=== PATIENT | female | born 1945 | race Caucasian/White ===

== ENCOUNTER 2017-04-11 15:58 | Inpatient (IN) | payer OTHER ==
--- NOTE | 2017-04-11 17:29 | PDOC ---
History of Present Illness - General Chief Complaint: Wound Stated Complaint: CYST (PCP SENT) Time Seen by Provider: 04/11/17 17:28 History Source: Patient Exam Limitations: No Limitations - History of Present Illness Initial Comments: 04/11/17 17:53 Patient is a 72-year-old female with past medical history of insulin-dependent diabetes, HTN, HLD who presents to the emergency department today complaining of pain in her genital region. Patient states she was seen by Dr. Sy today in the clinic and was diagnosed with an abscess to her labia. She was sent over to the emergency department for further evaluation and workup of her abscess. She states her symptoms started yesterday. She initially noticed a small lump and that it hurt to sit. She states that the abscess grew overnight and became much larger. She states that the pain is in an 8 out of 10. Denies fevers, chills, weakness, lethargy, chest pain, shortness of breath, cough, edema, palpitations, nausea, vomiting and diarrhea. Patient states that she hasn't urinated since she noticed the abscess because she was afraid it was going to hurt. Past History - Travel Traveled outside of the country in the last 30 days: No Close contact w/someone who was outside of country & ill: No - Past Medical History Allergies/Adverse Reactions: Allergies Allergy/AdvReac Type Severity Reaction Status Date / Time No Known Allergies Allergy Verified 04/11/17 16:05 Home Medications: Ambulatory Orders Atorvastatin Ca [Lipitor] 40 mg PO HS 03/17/16 Carvedilol 12.5 mg PO BID 03/17/16 Insulin Aspart [Novolog] 20 unit SQ TID 03/17/16 Insulin Glargine,Hum.rec.anlog [Lantus Solostar PEN (NF)] 32 units SQ HS Ramipril 5 mg PO DAILY 03/17/16 Spironolactone 25 mg PO DAILY 03/17/16 Anemia: No Asthma: No Cancer: No Cardiac Disorders: Yes CVA: No COPD: No CHF: No Dementia: No Diabetes: Yes (IDDM) GI Disorders: No Disorders: No HTN: Yes Hypercholesterolemia: Yes Liver Disease: No Seizures: Yes (possible with brain aneurysm (1991)) Thyroid Disease: No - Surgical History Cardiac Surgery: Yes (triple bypass 2015) Neurologic Surgery: Yes (CLIPPING OF ANEURYSM 1991) - Psycho/Social/Smoking Cessation Hx Suicidal Ideation: No Smoking Status: No Smoking History: Former smoker Have you smoked in the past 12 months: No Number of Cigarettes Smoked Daily: 60 If you are a former smoker, when did you quit?: 1971 Information on smoking cessation initiated: No Hx Alcohol Use: No Drug/Substance Use Hx: No Review of Systems - Review of Systems Constitutional: No: Chills, Fever, Malaise, Weakness Respiratory: No: Cough, Shortness of Breath, Wheezing Cardiac (ROS): No: Chest Pain, Edema, Lightheadedness, Palpitations, Chest Tightness ABD/GI: No: Diarrhea, Nausea, Vomiting : Yes: Pain (L labia majora) Integumentary: Yes: Erythema (L labia), Other (abscess to the L labia measuring 2cm wide x 4cm long) Neurological: No: Numbness, Tingling, Weakness All Other Systems: Reviewed and Negative *Physical Exam - Vital Signs Last Vital Signs Temp Pulse Resp BP Pulse Ox 98.0 F 91 H 16 95/41 98 04/11/17 16:01 04/11/17 16:01 04/11/17 16:01 04/11/17 16:01 04/11/17 16:01 - Physical Exam Comments: 04/11/17 17:54 GENERAL: Well developed, well nourished. AAOx3. No acute distress, laying on hospital bed , breathing easily. HEENT: Normocephalic, atraumatic. PERRLA, EOMI. No conjunctival pallor. Sclera are non- icteric. Moist mucous membranes. Oropharynx is clear. NECK: Supple. Full ROM. No JVD. Carotid pulses 2+ and symmetric, without bruits. No thyromegaly. No lymphadenopathy. CARDIOVASCULAR: Regular rate and rhythm. No murmurs, rubs, or gallops. Distal pulses are 2+ and symmetric. PULMONARY: No evidence of respiratory distress. Lungs clear to auscultation bilaterally. No wheezing, rales or rhonchi. ABDOMINAL: Soft. Non-tender. Non-distended. No rebound or guarding. No organomegaly. Normoactive bowel sounds. MUSCULOSKELETAL Normal range of motion at all joints. No bony deformities or tenderness. No CVA tenderness. EXTREMITIES: No cyanosis. No clubbing. No edema. No calf tenderness. SKIN: Warm and dry. Normal capillary refill. No rashes. No jaundice. NEUROLOGICAL: Alert, awake, appropriate. Cranial nerves 2-12 intact. No deficits to light touch and temperature in face, upper extremities and lower extremities. No motor deficits in the in face, upper extremities and lower extremities. Normoreflexic in the upper and lower extremities. Normal speech. Toes are down- going bilaterally. Gait is normal without ataxia. PSYCHIATRIC: Cooperative. Good eye contact. Appropriate mood and affect. : L Labia with indurated abscess and surrounding erythema measuring 2cm [id number] long. TTP, no obvious fluctuant mass. R labia is normal appearing, no other rashes or lesions noted on the external genitalia Medical Decision Making - Medical Decision Making 04/11/17 16:56 Patient is a 72-year-old female with past medical history of insulin-dependent diabetes, HTN, HLD who presents to the emergency department today complaining of pain in her genital region. On exam there is a cellulitic/abscess region on her left labia measuring approximately 2 cm x [address] Sy today in the office. Spoke with Dr. Samuels who is covering for Dr. Garcia. She states that he is requesting that she be admitted for IV antibiotics and OR incision and drainage of the abscess given her comorbidities and location of abscess. Requesting that she be admitted to Dr. Hassan her primary care doctor. Will page at this time. We will also order basic labs that are needed for the OR and IV antibiotics. 1. CBC, CMP, PT/INR, Type and screen, blood cultures x2, UA, UC 2. IV Vancomycin, IV zosyn 3. Admit to Med/Surg 04/11/17 17:[address] Hassan. He accepts the patient. *DC/Admit/Observation/Transfer Diagnosis at time of Disposition: Abscess of labia majora Diabetes Qualifiers: Diabetes mellitus type: other specified (including BERONICA) Diabetes mellitus complication status: with skin complications Diabetes mellitus complication detail: with other skin complication Diabetes mellitus termite technician insulin use: with termite technician use Qualified Code(s): E13.628 - Other specified diabetes mellitus with other skin complications Coronary artery disease Qualifiers: Coronary Disease-Associated Artery/Lesion type: unspecified vessel or lesion type [place] vs. transplanted heart: [place] heart Associated angina: without angina Qualified Code(s): I25.10 - Atherosclerotic heart disease of [place] coronary artery without angina pectoris - Discharge Dispostion Condition at time of disposition: Stable Admit: Yes - Referrals Referrals: Ryan Hassan MD [Primary Care Provider] -
[2017-04-11] MEDS ORDERED: VANCOMYCIN 1,000 MG in DEXTROSE 5%-WATER - 250 ML IVPB ONE (18:26)
[2017-04-11] MEDS ORDERED: PIPERACILLIN/TAZOB 3.375 GM 3.375 GM in DEXTROSE 5%-WATER - 50 ML IVPB ONE (18:27)
--- NOTE | 2017-04-11 18:39 | PDOC ---
*Physical Exam - Vital Signs Last Vital Signs Temp Pulse Resp BP Pulse Ox 98.0 F 86 18 111/59 97 04/11/17 16:01 04/11/17 17:43 04/11/17 17:43 04/11/17 17:43 04/11/17 17:43 Heart Score/ECG Review #1 ECG reviewed & interpreted by me at: 18:52 General ECG Interpretation: Sinus Rhythm, Normal Rate, Normal Intervals 04/11/17 18:52 non specific t wave abnormalities ED Treatment Course - LABORATORY CBC & Chemistry Diagram: 04/11/17 18:35 04/11/17 18:35 Medical Decision Making - Medical Decision Making 04/11/17 18:39 This is a 72-year-old female with a history of diabetes who presents emergency department from her GYNs office due to labial abscess. No fevers, no chills. Area is very tender. Plan is for admission for operative drainage tomorrow. Pt seen by Midlevel Provider under my direct supervision Ancillary studies reviewed I agree with plan as outlined by Midlevel Provider *DC/Admit/Observation/Transfer Diagnosis at time of Disposition: Abscess of labia majora Diabetes Qualifiers: Diabetes mellitus type: other specified (including [place]) Diabetes mellitus complication status: with skin complications Diabetes mellitus complication detail: with other skin complication Diabetes mellitus intermediate project manager insulin use: with detention use Qualified Code(s): E13.628 - Other specified diabetes mellitus with other skin complications Coronary artery disease Qualifiers: Coronary Disease-Associated Artery/Lesion type: unspecified vessel or lesion type [place] vs. transplanted heart: [place] heart Associated angina: without angina Qualified Code(s): I25.10 - Atherosclerotic heart disease of [place] coronary artery without angina pectoris - Discharge Dispostion Condition at time of disposition: Stable - Referrals Referrals: Ryan Hassan MD [Primary Care Provider] - - Patient Instructions - Post Discharge Activity
[2017-04-11] MEDS ORDERED: VANCOMYCIN 1 GRAM (PRE-DOCKED) 250 ML IVPB ONE (18:44)
[2017-04-11] MEDS ORDERED: PIPERACILLIN/TAZOB 3.375 GM 50 ML IVPB ONE (18:45)
[2017-04-11 18:54] LABS: BASOPHIL 0.2 % (0-2.0); EOSINOPHIL 0.4 % (0-4.5); MCH 30.4 pg (25.7-33.7); MCHC 33.5 g/dl (32.0-36.0); MEAN CELL VOLUME 90.6 fl (80-96); MEAN PLT VOLUME 8.4 fl (7.5-11.1); NEUTROPHILS 80.6 % (42.8-82.8); PLATELET COUNT 161 K/MM3 (134-434); RDW 13.4 % (11.6-15.6); WHITE BLOOD COUNT 12.1 K/mm3 (4.0-10.0)
[2017-04-11 19:13] LABS: INR 1.27 (0.82-1.09)
[2017-04-11 19:19] LABS: ALBUMIN 3.5 g/dl (3.4-5.0); ANION GAP 8 (8-16); CO2 25 mmol/L (21-32); CREATININE 1.4 mg/dL (0.55-1.02); SGOT/AST 5 U/L (15-37); SGPT/ALT 16 U/L (12-78)
[2017-04-11 19:21] LABS: ALK PHOS 66 U/L (45-117); TOT PROT 7.3 g/dl (6.4-8.2)
[2017-04-11 20:13] LABS: GLUCOSE,RANDOM 312 mg/dL (74-106)
[2017-04-11] MEDS ORDERED: INSULIN DETEMIR 100 UNITS/ML MDV SQ SCH (23:15)
[2017-04-11] MEDS: CARVEDILOL 12.5 MG TABLET (FP) PO SCH (23:49)
[2017-04-12 00:13] VITALS: BMI 28.8
[2017-04-12] MEDS: INSULIN SLIDING SCALE (NOVOLOG) 1 VIAL SQ SCH ×4 (01:02→21:41)
[2017-04-12 01:13] LABS: URINE APPEARANCE CLEAR; URINE BILIRUBIN NEGATIVE (NEGATIVE); URINE BLOOD NEGATIVE (NEGATIVE); URINE COLOR LT. YELLOW; URINE GLUCOSE (UA) 3+ (NEGATIVE); URINE KETONE NEGATIVE (NEGATIVE); URINE LEUK ESTERASE NEGATIVE (NEGATIVE); URINE NITRITE NEGATIVE (NEGATIVE); URINE PROTEIN NEGATIVE (NEGATIVE); URINE UROBILINOGEN 0.2 mg/dL (0.2-1.0)
[2017-04-12] MEDS: CARVEDILOL 12.5 MG TABLET (FP) PO SCH ×2 (09:46→21:42)
[2017-04-12] MEDS ORDERED: RAMIPRIL 5 MG CAPSULE (FP) PO SCH (10:00)
[2017-04-12] MEDS ORDERED: SPIRONOLACTONE 25 MG TABLET (FP) PO SCH (10:00)
--- NOTE | 2017-04-12 11:07 | HP ---
DATE OF ADMISSION: 04/11/2017 DATE OF DICTATION: 04/12/2017 HISTORY OF PRESENT ILLNESS: This is a 72-year-old female known to have hypertension and diabetes not under good control all the time, now presenting to the emergency room with complaints of pain in the vulvar area. It was diagnosed that patient had labial abscess on the left side evaluated by her reinsurance claims analyst, Dr. Jones, advised incision and drainage in the operating room. So, she got admitted with a diagnosis of uncontrolled diabetes and abscess in the vulvar area of the vagina. MEDICATIONS: She is on insulin Lantus 32 units a day and also on regular insulin 3 times a day depending upon the blood sugar. SOCIAL HISTORY: She is not a smoker. No alcohol abuse. 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 ALLERGIES: No known allergies. PHYSICAL EXAMINATION: Vital signs: Today, her blood pressure is 110/70, pulse 72, respirations 20, temperature 100.2. HEENT: Unremarkable. Neck: supple. Lungs: Clear. Breasts: No masses. Heart: S1, S2 normal. No S3, S4. Abdomen: Soft, nontender. On the vaginal area, there is an abscess with induration on the left labia. Extremities: Legs no edema. Neurologic: Grossly normal. LABORATORIES: WBC 12, hemoglobin 11, hematocrit 34, platelets 161. Chemistry: Sodium 133, potassium 4.7, BUN 43, creatinine 1.4, blood sugar 312 at the time of admission and this morning is 191. Chest x-ray showed no acute changes, prominent mediastinum. EKG to be evaluated. IMPRESSION: Labial abscess, uncontrolled diabetes. PLAN: RAILROAD COMMISSIONER consult with Dr. Jones to do incision and drainage, and ID consult , Dr. Garibay, for antibiotics. Sandra [id number]
--- NOTE | 2017-04-12 14:56 | EKG ---
Test Reason : Blood Pressure : / mmHG Vent. Rate : 082 BPM Atrial Rate : 082 BPM P-R Int : 162 ms QRS Dur : 086 ms QT Int : 346 ms P-R-T Axes : -08 -17 069 degrees QTc Int : 404 ms NORMAL SINUS RHYTHM NONSPECIFIC T WAVE ABNORMALITY ABNORMAL ECG WHEN COMPARED WITH ECG OF 18-MAR-2016 22:13, QT HAS SHORTENED Confirmed by ERICK PEÑA MD ([id number]) on 04/12/2017 2:55:38 PM Referred By: Confirmed By:ERICK PEÑA MD
[2017-04-12] MEDS ORDERED: morphine CARPU-JECT 2 MG/1 ML DISP.SYRIN IVPUSH PRN ×2 (15:03→17:22)
[2017-04-12] MEDS ORDERED: ONDANSETRON 4 MG/2 ML VIAL IVPB PRN ×2 (15:04→16:54)
--- NOTE | 2017-04-12 15:42 | CONSULT ---
Consult Consult Specialty:: infectious diseases Referred by:: Reason for Consultation:: labial abscess - History of Present Illness Chief Complaint: pain and swelling of the left labia History of Present Illness: This is a 72-year-old female with a history of diabetes who is admitted for labial abscess. patient had the abscess before patient was evalauted by fleet administrative assistant and the plan is to do surgery today patient c/o sever pain at the site spoke with the family and her sugars are not in control - History Source History Provided By: Patient, Family Member - Past Medical History Cardio/Vascular: Yes: CAD, CHF, HTN ...: No - Alcohol/Substance Use Hx Alcohol Use: No - Smoking History Smoking history: Former smoker Have you smoked in the past 12 months: No Aproximately how many cigarettes per day: 60 If you are a former smoker, when did you quit?: 1972 Home Medications - Allergies Allergies/Adverse Reactions: Allergies Allergy/AdvReac Type Severity Reaction Status Date / Time No Known Allergies Allergy Verified 04/11/17 16:05 - Home Medications Home Medications: Ambulatory Orders Atorvastatin Ca [Lipitor] 40 mg PO HS 03/17/16 Carvedilol 12.5 mg PO BID 03/17/16 Insulin Aspart [Novolog] 14 unit SQ TID 03/17/16 Insulin Glargine,Hum.rec.anlog [Lantus Solostar PEN (NF)] 32 units SQ HS Ramipril 5 mg PO DAILY 03/17/16 Spironolactone 25 mg PO DAILY 03/17/16 Review of Systems - Review of Systems Constitutional: reports: No Symptoms Eyes: reports: No Symptoms HENT: reports: No Symptoms Neck: reports: No Symptoms Cardiovascular: reports: No Symptoms Respiratory: reports: No Symptoms Gastrointestinal: reports: No Symptoms Genitourinary: reports: No Symptoms Musculoskeletal: reports: No Symptoms Integumentary: reports: Erythema, Wound Neurological: reports: No Symptoms Endocrine: reports: No Symptoms Hematology/Lymphatic: reports: No Symptoms Psychiatric: reports: No Symptoms Physical Exam Vital Signs: Vital Signs Temperature 97.8 F 04/12/17 10:00 Pulse Rate 74 04/12/17 10:00 Respiratory Rate 18 04/12/17 10:00 Blood Pressure 100/40 04/12/17 10:00 O2 Sat by Pulse Oximetry (%) 99 04/11/17 21:00 Constitutional: Yes: Calm, Mild Distress Eyes: Yes: Conjunctiva Clear HENT: Yes: Atraumatic Neck: Yes: Supple Cardiovascular: Yes: Regular Rate and Rhythm Respiratory: Yes: Regular, CTA Bilaterally Gastrointestinal: Yes: Normal Bowel Sounds, Soft Renal/: Yes: Other (left labia tenderness swelling) Musculoskeletal: Yes: WNL Extremities: Yes: WNL Neurological: Yes: Alert, Oriented Psychiatric: Yes: Alert, Oriented Labs: CBC, BMP 04/11/17 18:35 04/11/17 23:38 Imaging - Results Chest X-ray: Report Reviewed, Image Reviewed Assessment/Plan patient evaluated patient has labial abscess left labial abscess dm plan surgery will continue zosyn once surgery is done will see what cx show diabetes management
[2017-04-12] MEDS ORDERED: PIPERACILLIN/TAZOBACTAM 3.375 GM VIAL IVPB ONE ×2 (15:44→18:33)
[2017-04-12] MEDS ORDERED: DEXTROSE 5%-WATER - 50 ML IVPB ONE ×2 (15:44→18:33)
[2017-04-12] MEDS ORDERED: PIPERACILLIN/TAZOB 3.375 GM 3.375 GM in DEXTROSE 5%-WATER - 50 ML IVPB SCH (15:45)
[2017-04-12] MEDS ORDERED: PROPOFOL 20 ML ONE ×2 (16:24)
[2017-04-12] MEDS ORDERED: ACETAMINOPHEN 325 MG TABLET (FP) PO PRN (16:52)
[2017-04-12] MEDS ORDERED: ELECTROLYTE-148 SOLN 1,000 ML IV SCH (17:00)
[2017-04-12] MEDS: PIPERACILLIN/TAZOB 3.375 GM 3.375 GM in DEXTROSE 5%-WATER - 50 ML IVPB SCH (18:36)
--- NOTE | 2017-04-12 19:15 | CON.OBG ---
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 Reason for Consultation:: DR Hassan - History of Present Illness Chief Complaint: vulvar pain History of Present Illness: 72 yo f with hx of DM, ASHD , c/o LT vulvar pain for 4 days , admitted for large LT vulvar abscess, no discharge, no fever - History Source History Provided By: Patient Limitations to Obtaining History: No Limitations - Past Medical History Cardio/Vascular: Yes: CAD, CHF, HTN ...: No - Past Surgical History Past Surgical History: Yes: Bypass - Alcohol/Substance Use Hx Alcohol Use: No - Smoking History Smoking history: Former smoker Have you smoked in the past 12 months: No Aproximately how many cigarettes per day: 60 If you are a former smoker, when did you quit?: 1971 - Social History Usual Living Arrangement: With Spouse Home Medications - Allergies Allergies/Adverse Reactions: Allergies Allergy/AdvReac Type Severity Reaction Status Date / Time No Known Allergies Allergy Verified 04/11/17 16:05 - Home Medications Home Medications: Ambulatory Orders Atorvastatin Ca [Lipitor] 40 mg PO HS 03/17/16 Carvedilol 12.5 mg PO BID 03/17/16 Insulin Aspart [Novolog] 14 unit SQ TID 03/17/16 Insulin Glargine,Hum.rec.anlog [Lantus Solostar PEN (NF)] 32 units SQ HS Ramipril 5 mg PO DAILY 03/17/16 Spironolactone 25 mg PO DAILY 03/17/16 Review of Systems - Review of Systems Constitutional: reports: Weakness HENT: reports: No Symptoms Neck: reports: No Symptoms Cardiovascular: reports: No Symptoms Respiratory: reports: No Symptoms Gastrointestinal: reports: No Symptoms Genitourinary: reports: Pain Breasts: reports: No Symptoms Reported Musculoskeletal: reports: No Symptoms Neurological: reports: No Symptoms Endocrine: reports: No Symptoms Hematology/Lymphatic: reports: No Symptoms Pain Intensity: 8 Physical Exam-SOLOIST DANCER Vital Signs: Vital Signs Temperature 98.4 F 04/12/17 18:30 Pulse Rate 75 04/12/17 18:30 Respiratory Rate 20 04/12/17 18:30 Blood Pressure 130/60 04/12/17 18:30 O2 Sat by Pulse Oximetry (%) 100 04/12/17 17:45 Constitutional: Yes: Well Nourished, No Distress, Calm Eyes: Yes: WNL, Conjunctiva Clear, EOM Intact HENT: Yes: WNL, Atraumatic, Normocephalic Neck: Yes: WNL, Supple, Trachea Midline Cardiovascular: Yes: WNL, Regular Rate and Rhythm Respiratory: Yes: WNL, Regular, CTA Bilaterally Gastrointestinal: Yes: WNL Renal/: Yes: WNL External Genitalia: Yes: Other (large LT labia majora abscess 6 cm, red, with cellulitis and tenderness) Vaginal Exam: Yes: Normal Breast(s): Yes: WNL Musculoskeletal: Yes: WNL Extremities: Yes: WNL Integumentary: Yes: WNL Neurological: Yes: WNL, Alert, Oriented ...Motor Strength: WNL Psychiatric: Yes: WNL, Alert, Oriented Labs: CBC, BMP 04/11/17 18:35 04/11/17 23:38 Problem List - Problems (1) Abscess of left genital labia Code(s): N76.4 - ABSCESS OF VULVA Assessment/Plan iv antibiotics, I/D of abscess , rba discussed
[2017-04-12] MEDS ORDERED: INSULIN DETEMIR 100 UNITS/ML MDV SQ SCH (22:00)
[2017-04-12] MEDS: ACETAMINOPHEN 325 MG TABLET (FP) PO PRN (22:25)
[2017-04-13] MEDS ORDERED: DEXTROSE 5%-WATER - 50 ML IVPB ONE ×4 (02:01→23:24)
[2017-04-13] MEDS ORDERED: PIPERACILLIN/TAZOBACTAM 3.375 GM VIAL IVPB ONE ×4 (02:01→23:24)
[2017-04-13] MEDS: PIPERACILLIN/TAZOB 3.375 GM 3.375 GM in DEXTROSE 5%-WATER - 50 ML IVPB SCH ×3 (02:05→18:25)
[2017-04-13] MEDS: INSULIN SLIDING SCALE (NOVOLOG) 1 VIAL SQ SCH ×4 (06:02→21:39)
[2017-04-13] MEDS: ACETAMINOPHEN 325 MG TABLET (FP) PO PRN (06:05)
--- NOTE | 2017-04-13 08:42 | OP ---
DATE OF OPERATION: 04/12/2017 PREOPERATIVE DIAGNOSIS: Left vulvar abscess. POSTOPERATIVE DIAGNOSIS: Left vulvar abscess. PROCEDURE: Incision and drainage of the left vulvar abscess. SURGEON: Paul Calle MD ANESTHESIA: General. ANESTHESIOLOGIST: Ron Baez DO ESTIMATED BLOOD LOSS: 50 mL. OPERATION: The patient was taken to the operating room, had adequate general anesthesia, in dorsal lithotomy position. Examination under anesthesia revealed an approximately 6-cm large labia majora abscess with cellulitis around the vulvar area. Then, the area was cleaned with Betadine, and then, with the knife, a 3-cm incision was made, and 30 mL of pus was drained. Then, with a Ritu clamp, the loculation of the abscess was lysed and more abscess drained, and then, the abscess cavity was packed with Iodoform gauze. Patient tolerated the procedure well, left the OR in good condition. PAUL CALLE M.D. [id number]
[2017-04-13 09:09] LABS: MCH 29.9 pg (25.7-33.7); MCHC 33.6 g/dl (32.0-36.0); MEAN PLT VOLUME 8.3 fl (7.5-11.1); PLATELET COUNT 142 K/MM3 (134-434); RDW 13.2 % (11.6-15.6); WHITE BLOOD COUNT 13.8 K/mm3 (4.0-10.0)
[2017-04-13] MEDS ORDERED: INSULIN DETEMIR 100 UNITS/ML MDV SQ SCH (09:20)
--- NOTE | 2017-04-13 09:26 | PN ---
Progress Note, Physician Chief Complaint: C/o Pain History of Present Illness: 72 yrs with uncontro;lled T2DM, CAD, CHF admitted with uncontrolled DM and Left Labial ulcer underwent I and D under GA - Current Medication List Current Medications: Active Medications Acetaminophen (Tylenol -) 650 mg PO Q6H PRN PRN Reason: FEVER OR PAIN Last Admin: 04/13/17 06:05 Dose: 650 mg Carvedilol (Coreg -) 12.5 mg PO BID [facility] Last Admin: 04/12/17 21:42 Dose: 12.5 mg Fentanyl (Sublimaze Injection -) 50 mcg IVPUSH [id number] PRN PRN Reason: PAIN Stop: 04/15/17 16:53 Last Admin: 04/12/17 17:15 Dose: 50 mcg Parenteral Electrolytes (Plasma-Lyte 148 -) 1,000 mls @ 50 mls/hr IV ASDIR [facility] Last Admin: 04/12/17 18:00 Dose: 0 mls Piperacillin Sod/Tazobactam (Sod 3.375 gm/ Dextrose) 50 mls @ 100 mls/hr IVPB Q8H-IV BO PRN Reason: Protocol Last Admin: 04/13/17 02:05 Dose: 100 mls/hr Insulin Aspart (Novolog Vial Sliding Scale -) 1 vial SQ ACHS BO PRN Reason: Protocol Last Admin: 04/13/17 06:02 Dose: Not Given Insulin Detemir (Levemir Vial) 36 units SQ HS [facility] Morphine Sulfate (Morphine Injection -) 2 mg IVPUSH Q6H PRN PRN Reason: PAIN Ondansetron HCl (Zofran Injection) 4 mg IVPB Q6H PRN PRN Reason: NAUSEA Oxycodone HCl (Roxicodone -) 5 mg PO Q4H PRN PRN Reason: PAIN Ramipril (Altace -) 5 mg PO DAILY [facility] Spironolactone (Aldactone -) 25 mg PO DAILY [facility] - Objective Vital Signs: Vital Signs Temperature 101.2 F H 04/13/17 06:00 Pulse Rate 83 04/13/17 06:00 Respiratory Rate 20 04/13/17 06:00 Blood Pressure 100/46 04/13/17 06:00 O2 Sat by Pulse Oximetry (%) 98 04/12/17 21:00 General: Elderly F not in distress c/o less pain HEENT: ET tube at place, MM moist, PERRLA, NECK; NO NVD, No Bruit, Carotids + CHEST: B/L equal AE CVS: S1 S2 R no m/g/r ABD: No distention non tender ; Left labial abscess I and D EXT: ,Trace edema feet, no calf tenderness, Pulses + ASSEMBLY MACHINE FEEDER: AOX3 non focal Labs: CBC, BMP 04/11/17 23:38 INR, PTT INR 1.27 (0.82-1.09) H 04/11/17 18:35 Problem List - Problems (1) Abscess of left genital labia Assessment/Plan: S/P I a D Cont IV abx Zosyn F/U culture result, post Op care as per HOTEL ASSOCIATE Code(s): N76.4 - ABSCESS OF VULVA (2) HTN (hypertension) Assessment/Plan: Well controlled cont current meds Code(s): I10 - ESSENTIAL (PRIMARY) HYPERTENSION Qualifiers: Hypertension type: essential hypertension Qualified Code(s): I10 - Essential (primary) hypertension (3) Uncontrolled diabetes mellitus Assessment/Plan: Diabetic Diet optimize Glycemic control, increase Lantus dose. Code(s): E11.65 - TYPE 2 DIABETES MELLITUS WITH HYPERGLYCEMIA (4) Coronary artery disease Assessment/Plan: Stables/p CABG no active issue. Code(s): I25.10 - ATHSCL HEART DISEASE OF [place] CORONARY ARTERY W/O ANG PCTRS Qualifiers: Coronary Disease-Associated Artery/Lesion type: unspecified vessel or lesion type [place] vs. transplanted heart: [place] heart Associated angina: without angina Qualified Code(s): I25.10 - Atherosclerotic heart disease of [place] coronary artery without angina pectoris (5) NYHA class 3 heart failure with reduced ejection fraction Assessment/Plan: Ischemic Cardiomyopathy with reduced Ef at present compensated cont Coreg, aldactone and ramipril. Code(s): I50.9 - HEART FAILURE, UNSPECIFIED (6) Anemia Assessment/Plan: F/U anemia w/u. Code(s): D64.9 - ANEMIA, UNSPECIFIED
[2017-04-13] MEDS: SPIRONOLACTONE 25 MG TABLET (FP) PO SCH (09:49)
[2017-04-13] MEDS: RAMIPRIL 5 MG CAPSULE (FP) PO SCH (09:49)
[2017-04-13] MEDS: CARVEDILOL 12.5 MG TABLET (FP) PO SCH ×2 (09:50→21:24)
[2017-04-13] MEDS ORDERED: SODIUM CHLORIDE 0.9% 1000 ML INFUS.BAG IV ONE (10:47)
[2017-04-13] MEDS ORDERED: INSULIN (NOVOLOG) ASPART 100 UNITS/ML 10ML VIAL ONE ×2 (11:18→21:19)
[2017-04-13] MEDS: SODIUM CHLORIDE 0.9%/KCL 1,000 ML IV SCH (15:06)
--- NOTE | 2017-04-13 15:21 | PN ---
Progress Note (short form) - Note Progress Note: Anesthesia POD#1 S/P Labial abscess drainage under TIVA She is stable having fever. No N/V. Pain is under control. No complications to anesthesia seen. Alison Barrera MD.
--- NOTE | 2017-04-13 15:57 | PN ---
Progress Note, Physician History of Present Illness: doing well had couple of spikes of fever - Current Medication List Current Medications: Active Medications Acetaminophen (Tylenol -) 650 mg PO Q6H PRN PRN Reason: FEVER OR PAIN Last Admin: 04/13/17 06:05 Dose: 650 mg Carvedilol (Coreg -) 12.5 mg PO BID [facility] Last Admin: 04/13/17 09:50 Dose: Not Given Fentanyl (Sublimaze Injection -) 50 mcg IVPUSH [id number] PRN PRN Reason: PAIN Stop: 04/15/17 16:53 Last Admin: 04/12/17 17:15 Dose: 50 mcg Piperacillin Sod/Tazobactam (Sod 3.375 gm/ Dextrose) 50 mls @ 100 mls/hr IVPB Q8H-IV BO PRN Reason: Protocol Last Admin: 04/13/17 09:48 Dose: 100 mls/hr Potassium Chloride/Sodium Chloride (Ns+20 Meq Kcl -) 1,000 mls @ 75 mls/hr IV ASDIR [facility] Last Admin: 04/13/17 15:06 Dose: 75 mls/hr Insulin Aspart (Novolog Vial Sliding Scale -) 1 vial SQ ACHS BO PRN Reason: Protocol Last Admin: 04/13/17 11:20 Dose: 8 units Insulin Detemir (Levemir Vial) 36 units SQ HS [facility] Morphine Sulfate (Morphine Injection -) 2 mg IVPUSH Q6H PRN PRN Reason: PAIN Ondansetron HCl (Zofran Injection) 4 mg IVPB Q6H PRN PRN Reason: NAUSEA Oxycodone HCl (Roxicodone -) 5 mg PO Q4H PRN PRN Reason: PAIN Ramipril (Altace -) 5 mg PO DAILY [facility] Last Admin: 04/13/17 09:49 Dose: Not Given Spironolactone (Aldactone -) 25 mg PO DAILY [facility] Last Admin: 04/13/17 09:49 Dose: Not Given - Objective Vital Signs: Vital Signs Temperature 98.8 F 04/13/17 15:50 Pulse Rate 72 04/13/17 15:50 Respiratory Rate 18 04/13/17 15:50 Blood Pressure 98/34 04/13/17 15:50 O2 Sat by Pulse Oximetry (%) 98 04/12/17 21:00 Constitutional: Yes: No Distress, Calm Cardiovascular: Yes: Regular Rate and Rhythm Respiratory: Yes: Regular, CTA Bilaterally Gastrointestinal: Yes: Normal Bowel Sounds, Soft Musculoskeletal: Yes: WNL Extremities: Yes: WNL Wound/Incision: Yes: Dressing Dry and Intact Neurological: Yes: Alert, Oriented Psychiatric: Yes: Alert, Oriented Labs: CBC, BMP 04/13/17 08:30 04/11/17 23:38 INR, PTT INR 1.27 (0.82-1.09) H 04/11/17 18:35 Assessment/Plan patient evaluated patient has labial abscess left labial abscess dm plan surgery will continue zosyn will add clinda await for gram cx
[2017-04-13] MEDS ORDERED: PT OWN MED DRAWER 7, Y5N ONE (17:57)
[2017-04-13] MEDS: CLINDAMYCIN HCL 150 MG CAPSULE (FP) PO SCH (18:25)
[2017-04-13] MEDS: oxyCODONE HCL 5 MG TABLET PO PRN (21:28)
[2017-04-14] MEDS: CLINDAMYCIN HCL 150 MG CAPSULE (FP) PO SCH ×5 (00:01→23:29)
[2017-04-14] MEDS: PIPERACILLIN/TAZOB 3.375 GM 3.375 GM in DEXTROSE 5%-WATER - 50 ML IVPB SCH ×3 (01:54→17:58)
[2017-04-14] MEDS: oxyCODONE HCL 5 MG TABLET PO PRN ×3 (02:46→22:11)
[2017-04-14] MEDS: INSULIN SLIDING SCALE (NOVOLOG) 1 VIAL SQ SCH ×4 (06:13→21:58)
[2017-04-14] MEDS: RAMIPRIL 5 MG CAPSULE (FP) PO SCH (09:08)
[2017-04-14] MEDS: CARVEDILOL 12.5 MG TABLET (FP) PO SCH ×2 (09:08→21:57)
[2017-04-14] MEDS: SPIRONOLACTONE 25 MG TABLET (FP) PO SCH (09:08)
[2017-04-14 09:11] LABS: BASOPHIL 0.6 % (0-2.0); EOSINOPHIL 2.7 % (0-4.5); MCH 30.5 pg (25.7-33.7); MCHC 33.6 g/dl (32.0-36.0); MEAN CELL VOLUME 90.8 fl (80-96); MEAN PLT VOLUME 8.7 fl (7.5-11.1); NEUTROPHILS 70.9 % (42.8-82.8); PLATELET COUNT 168 K/MM3 (134-434); RDW 13.2 % (11.6-15.6)
[2017-04-14 09:15] LABS: ALBUMIN 2.6 g/dl (3.4-5.0); ANION GAP 9 (8-16); BILIRUBIN,TOTAL 0.9 mg/dL (0.2-1.0); CALCIUM 7.6 mg/dL (8.5-10.1); CO2 23 mmol/L (21-32); GLUCOSE,RANDOM 108 mg/dL (74-106); SGOT/AST 12 U/L (15-37); SGPT/ALT 15 U/L (12-78)
[2017-04-14] MEDS ORDERED: PIPERACILLIN/TAZOBACTAM 3.375 GM VIAL IVPB ONE ×2 (09:15→17:40)
[2017-04-14] MEDS ORDERED: DEXTROSE 5%-WATER - 100 ML IVPB ONE (09:15)
[2017-04-14 09:16] LABS: ALK PHOS 54 U/L (45-117); TOT PROT 5.8 g/dl (6.4-8.2)
--- NOTE | 2017-04-14 10:11 | PN ---
Progress Note (short form) - Note Progress Note: pod 2 still has pain at site of abscess , draining serosangous discharge , no foul odor LT vulva swelling and redness has decreased significantly. packing removed CBC, BMP 04/13/17 08:30 04/11/17 23:38 Last Vital Signs Temp Pulse Resp BP Pulse Ox 98.6 F 78 22 96/40 98 04/14/17 09:07 04/14/17 09:07 04/14/17 09:07 04/14/17 09:07 04/13/17 21:00 plan when medically stable , can be discharge home with po antibiotics as per ID Problem List - Problems (1) Abscess of left genital labia Code(s): N76.4 - ABSCESS OF VULVA
[2017-04-14] MEDS: SODIUM CHLORIDE 0.9%/KCL 1,000 ML IV SCH ×2 (11:00→14:20)
[2017-04-14] MEDS ORDERED: INSULIN (NOVOLOG) ASPART 100 UNITS/ML 10ML VIAL ONE ×2 (11:44→12:24)
[2017-04-14] MEDS ORDERED: PT OWN MED DRAWER 7, Y5N ONE (12:23)
--- NOTE | 2017-04-14 13:15 | PN ---
Progress Note, Physician Chief Complaint: C/o Pain History of Present Illness: 72 yrs with uncontrolled T2DM, CAD, CHF admitted with uncontrolled DM and Labial ulcer underwent I and D under [place] - Current Medication List Current Medications: Active Medications Acetaminophen (Tylenol -) 650 mg PO Q6H PRN PRN Reason: FEVER OR PAIN Last Admin: 04/13/17 06:05 Dose: 650 mg Carvedilol (Coreg -) 12.5 mg PO BID [facility] Last Admin: 04/14/17 09:08 Dose: Not Given Clindamycin HCl (Cleocin -) 300 mg PO Q6HPO [facility] Last Admin: 04/14/17 11:45 Dose: 300 mg Fentanyl (Sublimaze Injection -) 50 mcg IVPUSH [id number] PRN PRN Reason: PAIN Stop: 04/15/17 16:53 Last Admin: 04/12/17 17:15 Dose: 50 mcg Piperacillin Sod/Tazobactam (Sod 3.375 gm/ Dextrose) 50 mls @ 100 mls/hr IVPB Q8H-IV BO PRN Reason: Protocol Last Admin: 04/14/17 09:40 Dose: 100 mls/hr Potassium Chloride/Sodium Chloride (Ns+20 Meq Kcl -) 1,000 mls @ 75 mls/hr IV ASDIR [facility] Last Admin: 04/13/17 15:06 Dose: 75 mls/hr Insulin Aspart (Novolog Vial Sliding Scale -) 1 vial SQ ACHS BO PRN Reason: Protocol Last Admin: 04/14/17 11:45 Dose: 4 units Insulin Detemir (Levemir Vial) 36 units SQ HS [facility] Last Admin: 04/13/17 21:39 Dose: 36 units Morphine Sulfate (Morphine Injection -) 2 mg IVPUSH Q6H PRN PRN Reason: PAIN Ondansetron HCl (Zofran Injection) 4 mg IVPB Q6H PRN PRN Reason: NAUSEA Oxycodone HCl (Roxicodone -) 5 mg PO Q4H PRN PRN Reason: PAIN Last Admin: 04/14/17 02:46 Dose: 5 mg Ramipril (Altace -) 5 mg PO DAILY [facility] Last Admin: 04/14/17 09:08 Dose: Not Given Spironolactone (Aldactone -) 25 mg PO DAILY [facility] Last Admin: 04/14/17 09:08 Dose: Not Given - Objective Vital Signs: Vital Signs Temperature 98.6 F 04/14/17 09:07 Pulse Rate 78 04/14/17 09:07 Respiratory Rate 22 04/14/17 09:07 Blood Pressure 96/40 04/14/17 09:07 O2 Sat by Pulse Oximetry (%) 98 04/13/17 21:00 General: Elderly F not in distress c/o less pain HEENT: ET tube at place, MM moist, PERRLA, NECK; NO NVD, No Bruit, Carotids + CHEST: B/L equal AE CVS: S1 S2 R no m/g/r ABD: No distention non tender ; Left labial abscess I and D EXT: ,Trace edema feet, no calf tenderness, Pulses + Labs: CBC, BMP 04/13/17 08:30 04/11/17 23:38 INR, PTT INR 1.27 (0.82-1.09) H 04/11/17 18:35 Microbiology 04/12/17 20:00 Vulva Gram Stain - Final Grew Strept sensitive to Levofloxacin. 04/12/17 00:10 Urine - Urine Clean Catch Urine Culture - Final NO GROWTH OBTAINED 04/11/17 18:45 Blood - Peripheral Venous Blood Culture - Preliminary NO GROWTH OBTAINED AFTER 24 HOURS, INCUBATION TO CONTINUE FOR 4 DAYS. 04/11/17 18:45 Blood - Peripheral Venous Blood Culture - Preliminary NO GROWTH OBTAINED AFTER 24 HOURS, INCUBATION TO CONTINUE FOR 4 DAYS. Problem List - Problems (1) Abscess of left genital labia Assessment/Plan: nGrew Strept will DC Clinda can be switched to Levofloxacin Code(s): N76.4 - ABSCESS OF VULVA (2) HTN (hypertension) Code(s): I10 - ESSENTIAL (PRIMARY) HYPERTENSION Qualifiers: Hypertension type: essential hypertension Qualified Code(s): I10 - Essential (primary) hypertension (3) Uncontrolled diabetes mellitus Assessment/Plan: Diabetic Diet optimize Glycemic control increase Levimir dose Code(s): E11.65 - TYPE 2 DIABETES MELLITUS WITH HYPERGLYCEMIA (4) Coronary artery disease Assessment/Plan: Stable no active issue Code(s): I25.10 - ATHSCL HEART DISEASE OF [place] CORONARY ARTERY W/O ANG PCTRS Qualifiers: Coronary Disease-Associated Artery/Lesion type: unspecified vessel or lesion type [place] vs. transplanted heart: [place] heart Associated angina: without angina Qualified Code(s): I25.10 - Atherosclerotic heart disease of [place] coronary artery without angina pectoris (5) NYHA class 3 heart failure with reduced ejection fraction Assessment/Plan: Ischemic Cardiomyopathy with reduced Ef at present compensated Code(s): I50.9 - HEART FAILURE, UNSPECIFIED
--- NOTE | 2017-04-14 15:38 | PN ---
Progress Note, Physician History of Present Illness: Pt without specific complaints. Pain controlled with medication. No fever/chills - Current Medication List Current Medications: Active Medications Acetaminophen (Tylenol -) 650 mg PO Q6H PRN PRN Reason: FEVER OR PAIN Last Admin: 04/13/17 06:05 Dose: 650 mg Carvedilol (Coreg -) 12.5 mg PO BID [facility] Last Admin: 04/14/17 09:08 Dose: Not Given Clindamycin HCl (Cleocin -) 300 mg PO Q6HPO [facility] Last Admin: 04/14/17 11:45 Dose: 300 mg Fentanyl (Sublimaze Injection -) 50 mcg IVPUSH [id number] PRN PRN Reason: PAIN Stop: 04/15/17 16:53 Last Admin: 04/12/17 17:15 Dose: 50 mcg Piperacillin Sod/Tazobactam (Sod 3.375 gm/ Dextrose) 50 mls @ 100 mls/hr IVPB Q8H-IV BO PRN Reason: Protocol Last Admin: 04/14/17 09:40 Dose: 100 mls/hr Potassium Chloride/Sodium Chloride (Ns+20 Meq Kcl -) 1,000 mls @ 75 mls/hr IV ASDIR [facility] Last Admin: 04/14/17 14:20 Dose: 75 mls/hr Insulin Aspart (Novolog Vial Sliding Scale -) 1 vial SQ ACHS [facility] PRN Reason: Protocol Last Admin: 04/14/17 11:45 Dose: 4 units Insulin Detemir (Levemir Vial) 40 units SQ HS [facility] Morphine Sulfate (Morphine Injection -) 2 mg IVPUSH Q6H PRN PRN Reason: PAIN Ondansetron HCl (Zofran Injection) 4 mg IVPB Q6H PRN PRN Reason: NAUSEA Oxycodone HCl (Roxicodone -) 5 mg PO Q4H PRN PRN Reason: PAIN Last Admin: 04/14/17 13:32 Dose: 5 mg Ramipril (Altace -) 5 mg PO DAILY [facility] Last Admin: 04/14/17 09:08 Dose: Not Given Spironolactone (Aldactone -) 25 mg PO DAILY [facility] Last Admin: 04/14/17 09:08 Dose: Not Given - Objective Vital Signs: Vital Signs Temperature 97.7 F 04/14/17 14:21 Pulse Rate 74 04/14/17 14:21 Respiratory Rate 20 04/14/17 14:21 Blood Pressure 135/54 04/14/17 14:21 O2 Sat by Pulse Oximetry (%) 98 04/13/17 21:00 Constitutional: Yes: No Distress HENT: Yes: WNL Cardiovascular: Yes: Regular Rate and Rhythm Respiratory: Yes: CTA Bilaterally Gastrointestinal: Yes: Normal Bowel Sounds, Soft Genitourinary: Yes: Other (Lt vulva indurated/tender) Extremities: Yes: WNL Wound/Incision: Yes: Clean/Dry Neurological: Yes: WNL Labs: CBC, BMP 04/13/17 08:30 04/11/17 23:38 INR, PTT INR 1.27 (0.82-1.09) H 04/11/17 18:35 Problem List - Problems (1) Abscess of labia majora Code(s): N76.4 - ABSCESS OF VULVA (2) Coronary artery disease Code(s): I25.10 - ATHSCL HEART DISEASE OF [place] CORONARY ARTERY W/O ANG PCTRS Qualifiers: Coronary Disease-Associated Artery/Lesion type: unspecified vessel or lesion type [place] vs. transplanted heart: [place] heart Associated angina: without angina Qualified Code(s): I25.10 - Atherosclerotic heart disease of [place] coronary artery without angina pectoris (3) Uncontrolled diabetes mellitus Code(s): E11.65 - TYPE 2 DIABETES MELLITUS WITH HYPERGLYCEMIA (4) ANGEL (acute kidney injury) Code(s): N17.9 - ACUTE KIDNEY FAILURE, UNSPECIFIED Assessment/Plan s/p I+D of vulvar abscess Leukocytosis - wbc mildly elevated Afebrile today - continue current antibiotics - follow up final wound culture results - continue wound care
[2017-04-14] MEDS ORDERED: DEXTROSE 5%-WATER - 50 ML IVPB ONE (17:40)
[2017-04-14] MEDS: INSULIN DETEMIR 100 UNITS/ML MDV SQ SCH (21:57)
[2017-04-15] MEDS ORDERED: DEXTROSE 5%-WATER - 50 ML IVPB ONE ×3 (02:03→18:02)
[2017-04-15] MEDS ORDERED: PIPERACILLIN/TAZOBACTAM 3.375 GM VIAL IVPB ONE ×3 (02:03→18:01)
[2017-04-15] MEDS: PIPERACILLIN/TAZOB 3.375 GM 3.375 GM in DEXTROSE 5%-WATER - 50 ML IVPB SCH ×3 (02:27→18:06)
[2017-04-15] MEDS: CLINDAMYCIN HCL 150 MG CAPSULE (FP) PO SCH (06:10)
[2017-04-15] MEDS: INSULIN SLIDING SCALE (NOVOLOG) 1 VIAL SQ SCH ×4 (06:10→21:58)
[2017-04-15] MEDS: SODIUM CHLORIDE 0.9%/KCL 1,000 ML IV SCH (06:11)
[2017-04-15 08:48] LABS: BASOPHIL 0.5 % (0-2.0); EOSINOPHIL 4.1 % (0-4.5); MCH 30.5 pg (25.7-33.7); MCHC 34.3 g/dl (32.0-36.0); MEAN CELL VOLUME 88.9 fl (80-96); MEAN PLT VOLUME 7.8 fl (7.5-11.1); NEUTROPHILS 69.9 % (42.8-82.8); PLATELET COUNT 180 K/MM3 (134-434); RDW 13.6 % (11.6-15.6); WHITE BLOOD COUNT 9.9 K/mm3 (4.0-10.0)
--- NOTE | 2017-04-15 09:07 | PN ---
Progress Note, Physician Chief Complaint: C/o Pain History of Present Illness: 72 yrs with uncontrolled T2DM, CAD, CHF admitted with uncontrolled DM and Labial ulcer underwent I and D under [place] c/o diarrhea F/U C Diff - Current Medication List Current Medications: Active Medications Acetaminophen (Tylenol -) 650 mg PO Q6H PRN PRN Reason: FEVER OR PAIN Last Admin: 04/13/17 06:05 Dose: 650 mg Carvedilol (Coreg -) 12.[address] [facility] Last Admin: 04/14/17 21:57 Dose: 12.5 mg Fentanyl (Sublimaze Injection -) 50 mcg IVPUSH [id number] PRN PRN Reason: PAIN Stop: 04/15/17 16:53 Last Admin: 04/12/17 17:15 Dose: 50 mcg Piperacillin Sod/Tazobactam (Sod 3.375 gm/ Dextrose) 50 mls @ 100 mls/hr IVPB Q8H-IV BO PRN Reason: Protocol Last Admin: 04/15/17 02:27 Dose: 100 mls/hr Potassium Chloride/Sodium Chloride (Ns+20 Meq Kcl -) 1,000 mls @ 75 mls/hr IV ASDIR [facility] Last Admin: 04/15/17 06:11 Dose: 75 mls/hr Insulin Aspart (Novolog Vial Sliding Scale -) [address] [facility] PRN Reason: Protocol Last Admin: 04/15/17 06:10 Dose: Not Given Insulin Detemir (Levemir Vial) [address] [facility] Last Admin: 04/14/17 21:57 Dose: 40 units Morphine Sulfate (Morphine Injection -) 2 mg IVPUSH Q6H PRN PRN Reason: PAIN Ondansetron HCl (Zofran Injection) 4 mg IVPB Q6H PRN PRN Reason: NAUSEA Oxycodone HCl (Roxicodone -) 5 mg PO Q4H PRN PRN Reason: PAIN Last Admin: 04/14/17 22:11 Dose: 5 mg Ramipril (Altace -) [address] [facility] Last Admin: 04/14/17 09:08 Dose: Not Given Spironolactone (Aldactone -) [address] [facility] Last Admin: 04/14/17 09:08 Dose: Not Given - Objective Vital Signs: Vital Signs Temperature 98.5 F 04/15/17 05:26 Pulse Rate 69 04/15/17 05:26 Respiratory Rate 20 04/15/17 05:26 Blood Pressure 133/44 04/15/17 05:26 O2 Sat by Pulse Oximetry (%) 95 04/14/17 21:00 General: Elderly F not in distress c/o less pain HEENT: ET tube at place, MM moist, PERRLA, NECK; NO NVD, No Bruit, Carotids + CHEST: B/L equal AE CVS: S1 S2 R no m/g/r ABD: No distention non tender ; Left labial abscess I and D EXT: ,Trace edema feet, no calf tenderness, Pulses + Labs: CBC, BMP 04/13/17 08:30 04/11/17 23:38 INR, PTT INR 1.27 (0.82-1.09) H 04/11/17 18:35 CBC,CMP Problem List - Problems (1) Abscess of left genital labia Assessment/Plan: nGrew Strept will DC Clinda can be switched to Levofloxacin Code(s): N76.4 - ABSCESS OF VULVA (2) HTN (hypertension) Assessment/Plan: Well controlled cont current meds Code(s): I10 - ESSENTIAL (PRIMARY) HYPERTENSION Qualifiers: Hypertension type: essential hypertension Qualified Code(s): I10 - Essential (primary) hypertension (3) Uncontrolled diabetes mellitus Assessment/Plan: Diabetic Diet optimize Glycemic control increase Levimir dose Code(s): E11.65 - TYPE 2 DIABETES MELLITUS WITH HYPERGLYCEMIA (4) Coronary artery disease Assessment/Plan: Stable no active issue Code(s): I25.10 - ATHSCL HEART DISEASE OF [place] CORONARY ARTERY W/O ANG PCTRS Qualifiers: Coronary Disease-Associated Artery/Lesion type: unspecified vessel or lesion type [place] vs. transplanted heart: [place] heart Associated angina: without angina Qualified Code(s): I25.10 - Atherosclerotic heart disease of [place] coronary artery without angina pectoris (5) NYHA class 3 heart failure with reduced ejection fraction Assessment/Plan: Ischemic Cardiomyopathy with reduced Ef at present compensated Code(s): I50.9 - HEART FAILURE, UNSPECIFIED
[2017-04-15 09:19] LABS: ALBUMIN 2.3 g/dl (3.4-5.0); ANION GAP 8 (8-16); CALCIUM 7.5 mg/dL (8.5-10.1); CO2 21 mmol/L (21-32); CREATININE 0.7 mg/dL (0.55-1.02); GLUCOSE,RANDOM 63 mg/dL (74-106); SGOT/AST 14 U/L (15-37); SGPT/ALT 18 U/L (12-78)
[2017-04-15 09:22] LABS: ALK PHOS 51 U/L (45-117); BILIRUBIN,TOTAL 0.6 mg/dL (0.2-1.0); TOT PROT 5.4 g/dl (6.4-8.2)
[2017-04-15] MEDS: RAMIPRIL 5 MG CAPSULE (FP) PO SCH (11:01)
[2017-04-15] MEDS: CARVEDILOL 12.5 MG TABLET (FP) PO SCH ×2 (11:01→21:49)
[2017-04-15] MEDS: SPIRONOLACTONE 25 MG TABLET (FP) PO SCH (11:01)
[2017-04-15 11:10] LABS: BASOPHIL 0.4 % (0-2.0); EOSINOPHIL 2.6 % (0-4.5); MCH 30.4 pg (25.7-33.7); MCHC 33.6 g/dl (32.0-36.0); MEAN CELL VOLUME 90.6 fl (80-96); MEAN PLT VOLUME 8.3 fl (7.5-11.1); NEUTROPHILS 75.9 % (42.8-82.8); PLATELET COUNT 183 K/MM3 (134-434); RDW 13.5 % (11.6-15.6); WHITE BLOOD COUNT 9.3 K/mm3 (4.0-10.0)
[2017-04-15 11:50] LABS: ALBUMIN 2.5 g/dl (3.4-5.0); ALK PHOS 58 U/L (45-117); ANION GAP 7 (8-16); BILIRUBIN,TOTAL 0.5 mg/dL (0.2-1.0); CALCIUM 7.6 mg/dL (8.5-10.1); CO2 22 mmol/L (21-32); CREATININE 0.8 mg/dL (0.55-1.02); GLUCOSE,RANDOM 216 mg/dL (74-106); SGOT/AST 17 U/L (15-37); SGPT/ALT 19 U/L (12-78); TOT PROT 5.8 g/dl (6.4-8.2)
[2017-04-15] MEDS ORDERED: INSULIN (NOVOLOG) ASPART 100 UNITS/ML 10ML VIAL ONE ×2 (12:01→19:51)
--- NOTE | 2017-04-15 15:37 | PN ---
Progress Note, Physician History of Present Illness: Pt is alert, afebrile. States she had loose BM earlier today. Still "sore" in vaginal region. No other specific complaints. - Current Medication List Current Medications: Active Medications Acetaminophen (Tylenol -) 650 mg PO Q6H PRN PRN Reason: FEVER OR PAIN Last Admin: 04/13/17 06:05 Dose: 650 mg Carvedilol (Coreg -) 12.5 mg PO BID [facility] Last Admin: 04/15/17 11:01 Dose: 12.5 mg Fentanyl (Sublimaze Injection -) 50 mcg IVPUSH [id number] PRN PRN Reason: PAIN Stop: 04/15/17 16:53 Last Admin: 04/12/17 17:15 Dose: 50 mcg Piperacillin Sod/Tazobactam (Sod 3.375 gm/ Dextrose) 50 mls @ 100 mls/hr IVPB Q8H-IV BO PRN Reason: Protocol Last Admin: 04/15/17 11:02 Dose: 100 mls/hr Potassium Chloride/Sodium Chloride (Ns+20 Meq Kcl -) 1,000 mls @ 75 mls/hr IV ASDIR [facility] Last Admin: 04/15/17 06:11 Dose: 75 mls/hr Insulin Aspart (Novolog Vial Sliding Scale -) 1 vial SQ ACHS BO PRN Reason: Protocol Last Admin: 04/15/17 12:13 Dose: 4 units Insulin Detemir (Levemir Vial) 40 units SQ HS [facility] Last Admin: 04/14/17 21:57 Dose: 40 units Morphine Sulfate (Morphine Injection -) 2 mg IVPUSH Q6H PRN PRN Reason: PAIN Ondansetron HCl (Zofran Injection) 4 mg IVPB Q6H PRN PRN Reason: NAUSEA Oxycodone HCl (Roxicodone -) 5 mg PO Q4H PRN PRN Reason: PAIN Last Admin: 04/14/17 22:11 Dose: 5 mg Ramipril (Altace -) 5 mg PO DAILY [facility] Last Admin: 04/15/17 11:01 Dose: 5 mg Spironolactone (Aldactone -) 25 mg PO DAILY [facility] Last Admin: 04/15/17 11:01 Dose: 25 mg - Objective Vital Signs: Vital Signs Temperature 97.9 F 04/15/17 10:52 Pulse Rate 71 04/15/17 10:52 Respiratory Rate 24 04/15/17 10:52 Blood Pressure 121/61 04/15/17 10:52 O2 Sat by Pulse Oximetry (%) 95 04/14/17 21:00 Constitutional: Yes: No Distress, Calm Neck: Yes: WNL Cardiovascular: Yes: Regular Rate and Rhythm Respiratory: Yes: CTA Bilaterally Gastrointestinal: Yes: Normal Bowel Sounds, Soft Musculoskeletal: Yes: WNL Extremities: Yes: WNL Wound/Incision: Yes: Clean/Dry, Other (still with labial induration, no purulence noted today) Labs: CBC, BMP 04/13/17 08:30 04/11/17 23:38 INR, PTT INR 1.27 (0.82-1.09) H 04/11/17 18:35 04/15/17 wbc - 9.3 (not documented in lab section yet) Problem List - Problems (1) Abscess of labia majora Code(s): N76.4 - ABSCESS OF VULVA (2) Coronary artery disease Code(s): I25.10 - ATHSCL HEART DISEASE OF [place] CORONARY ARTERY W/O ANG PCTRS Qualifiers: Coronary Disease-Associated Artery/Lesion type: unspecified vessel or lesion type [place] vs. transplanted heart: [place] heart Associated angina: without angina Qualified Code(s): I25.10 - Atherosclerotic heart disease of [place] coronary artery without angina pectoris (3) Uncontrolled diabetes mellitus Code(s): E11.65 - TYPE 2 DIABETES MELLITUS WITH HYPERGLYCEMIA (4) ANGEL (acute kidney injury) Code(s): N17.9 - ACUTE KIDNEY FAILURE, UNSPECIFIED Assessment/Plan Vulvar abscess - still indurated with some pain at site Diarrhea - earlier today, no abd cramping Leukocytosis - wbc normal today Clindamycin d/c'd suggest continue Zosyn for now stool c. diff testing requested repeat cbc in a.m. monitor for resolution of vulvar induration
[2017-04-15] MEDS: SODIUM CHLORIDE 1,000 ML IV SCH (15:45)
[2017-04-15] MEDS: oxyCODONE HCL 5 MG TABLET PO PRN (21:49)
[2017-04-15] MEDS: INSULIN DETEMIR 100 UNITS/ML MDV SQ SCH (21:59)
[2017-04-16] MEDS ORDERED: PIPERACILLIN/TAZOBACTAM 3.375 GM VIAL IVPB ONE ×3 (01:37→17:33)
[2017-04-16] MEDS ORDERED: DEXTROSE 5%-WATER - 50 ML IVPB ONE ×3 (01:37→17:33)
[2017-04-16] MEDS: PIPERACILLIN/TAZOB 3.375 GM 3.375 GM in DEXTROSE 5%-WATER - 50 ML IVPB SCH ×3 (02:30→17:52)
[2017-04-16] MEDS: SODIUM CHLORIDE 1,000 ML IV SCH ×3 (04:30→23:18)
[2017-04-16] MEDS: INSULIN SLIDING SCALE (NOVOLOG) 1 VIAL SQ SCH ×4 (06:14→22:24)
[2017-04-16] MEDS ORDERED: INSULIN (NOVOLOG) ASPART 100 UNITS/ML 10ML VIAL ONE ×3 (06:35→22:17)
[2017-04-16] MEDS ORDERED: INSULIN DETEMIR 100 UNITS/ML MDV SQ ONE (06:35)
--- NOTE | 2017-04-16 08:33 | PN ---
Progress Note, Physician Chief Complaint: C/o Pain History of Present Illness: 72 yrs with uncontrolled T2DM, CAD, CHF admitted with uncontrolled DM and Labial ulcer underwent I and D under [place] c/o diarrhea F/U C Diff - Current Medication List Current Medications: Active Medications Acetaminophen (Tylenol -) 650 mg PO Q6H PRN PRN Reason: FEVER OR PAIN Last Admin: 04/13/17 06:05 Dose: 650 mg Carvedilol (Coreg -) 12.5 mg PO BID [facility] Last Admin: 04/15/17 21:49 Dose: 12.5 mg Piperacillin Sod/Tazobactam (Sod 3.375 gm/ Dextrose) 50 mls @ 100 mls/hr IVPB Q8H-IV BO PRN Reason: Protocol Last Admin: 04/16/17 02:30 Dose: 100 mls/hr Sodium Chloride (Normal Saline -) 1,000 mls @ 75 mls/hr IV ASDIR [facility] Last Admin: 04/16/17 04:30 Dose: 75 mls/hr Insulin Aspart (Novolog Vial Sliding Scale -) 1 vial SQ ACHS BO PRN Reason: Protocol Last Admin: 04/16/17 06:14 Dose: Not Given Insulin Detemir (Levemir Vial) 40 units SQ HS [facility] Last Admin: 04/15/17 21:59 Dose: 40 units Ondansetron HCl (Zofran Injection) 4 mg IVPB Q6H PRN PRN Reason: NAUSEA Oxycodone HCl (Roxicodone -) 5 mg PO Q4H PRN PRN Reason: PAIN Last Admin: 04/15/17 21:49 Dose: 5 mg Ramipril (Altace -) 5 mg PO DAILY [facility] Last Admin: 04/15/17 11:01 Dose: 5 mg Spironolactone (Aldactone -) 25 mg PO DAILY [facility] Last Admin: 04/15/17 11:01 Dose: 25 mg - Objective Vital Signs: Vital Signs Temperature 97.5 F L 04/16/17 06:00 Pulse Rate 53 L 04/16/17 06:00 Respiratory Rate 20 04/16/17 06:00 Blood Pressure 111/41 04/16/17 06:00 O2 Sat by Pulse Oximetry (%) 98 04/15/17 21:00 General: Elderly F not in distress c/o less pain HEENT: ET tube at place, MM moist, PERRLA, NECK; NO NVD, No Bruit, Carotids + CHEST: B/L equal AE CVS: S1 S2 R no m/g/r ABD: No distention non tender ; Left labial abscess I and D EXT: ,Trace edema feet, no calf tenderness, Pulses + Labs: CBC, BMP 04/13/17 08:30 04/11/17 23:38 INR, PTT INR 1.27 (0.82-1.09) H 04/11/17 18:35 Problem List - Problems (1) Abscess of left genital labia Assessment/Plan: Grew Strept can be switched to Levofloxacin f/u ID Code(s): N76.4 - ABSCESS OF VULVA (2) HTN (hypertension) Assessment/Plan: Well controlled cont current meds Code(s): I10 - ESSENTIAL (PRIMARY) HYPERTENSION Qualifiers: Hypertension type: essential hypertension Qualified Code(s): I10 - Essential (primary) hypertension (3) Uncontrolled diabetes mellitus Assessment/Plan: Diabetic Diet optimize Glycemic control increase Levimir dose Code(s): E11.65 - TYPE 2 DIABETES MELLITUS WITH HYPERGLYCEMIA (4) Coronary artery disease Assessment/Plan: Stable no active issue Code(s): I25.10 - ATHSCL HEART DISEASE OF [place] CORONARY ARTERY W/O ANG PCTRS Qualifiers: Coronary Disease-Associated Artery/Lesion type: unspecified vessel or lesion type [place] vs. transplanted heart: [place] heart Associated angina: without angina Qualified Code(s): I25.10 - Atherosclerotic heart disease of [place] coronary artery without angina pectoris (5) NYHA class 3 heart failure with reduced ejection fraction Assessment/Plan: Ischemic Cardiomyopathy with reduced Ef at present compensated Code(s): I50.9 - HEART FAILURE, UNSPECIFIED
[2017-04-16 09:20] LABS: BASOPHIL 0.5 % (0-2.0); EOSINOPHIL 2.2 % (0-4.5); MCH 30.4 pg (25.7-33.7); MCHC 33.6 g/dl (32.0-36.0); MEAN CELL VOLUME 90.4 fl (80-96); MEAN PLT VOLUME 7.9 fl (7.5-11.1); NEUTROPHILS 75.8 % (42.8-82.8); PLATELET COUNT 193 K/MM3 (134-434); WHITE BLOOD COUNT 7.8 K/mm3 (4.0-10.0)
[2017-04-16] MEDS: SPIRONOLACTONE 25 MG TABLET (FP) PO SCH (09:53)
[2017-04-16] MEDS: CARVEDILOL 12.5 MG TABLET (FP) PO SCH ×2 (09:53→22:25)
[2017-04-16] MEDS: RAMIPRIL 5 MG CAPSULE (FP) PO SCH (09:53)
[2017-04-16 10:18] LABS: ALBUMIN 2.4 g/dl (3.4-5.0); ALK PHOS 57 U/L (45-117); ANION GAP 8 (8-16); BILIRUBIN,TOTAL 0.5 mg/dL (0.2-1.0); CALCIUM 7.5 mg/dL (8.5-10.1); CO2 20 mmol/L (21-32); CREATININE 0.6 mg/dL (0.55-1.02); GLUCOSE,RANDOM 147 mg/dL (74-106); SGOT/AST 14 U/L (15-37); SGPT/ALT 18 U/L (12-78); TOT PROT 5.9 g/dl (6.4-8.2)
--- NOTE | 2017-04-16 14:28 | PN ---
Progress Note, Physician History of Present Illness: patient stable no fever - Current Medication List Current Medications: Active Medications Acetaminophen (Tylenol -) 650 mg PO Q6H PRN PRN Reason: FEVER OR PAIN Last Admin: 04/13/17 06:05 Dose: 650 mg Carvedilol (Coreg -) 12.5 mg PO BID [facility] Last Admin: 04/16/17 09:53 Dose: 12.5 mg Piperacillin Sod/Tazobactam (Sod 3.375 gm/ Dextrose) 50 mls @ 100 mls/hr IVPB Q8H-IV BO PRN Reason: Protocol Last Admin: 04/16/17 09:52 Dose: 100 mls/hr Sodium Chloride (Normal Saline -) 1,000 mls @ 75 mls/hr IV ASDIR [facility] Last Admin: 04/16/17 04:30 Dose: 75 mls/hr Insulin Aspart (Novolog Vial Sliding Scale -) 1 vial SQ ACHS BO PRN Reason: Protocol Last Admin: 04/16/17 12:06 Dose: 8 units Insulin Detemir (Levemir Vial) 40 units SQ HS [facility] Last Admin: 04/15/17 21:59 Dose: 40 units Ondansetron HCl (Zofran Injection) 4 mg IVPB Q6H PRN PRN Reason: NAUSEA Oxycodone HCl (Roxicodone -) 5 mg PO Q4H PRN PRN Reason: PAIN Last Admin: 04/15/17 21:49 Dose: 5 mg Ramipril (Altace -) 5 mg PO DAILY [facility] Last Admin: 04/16/17 09:53 Dose: 5 mg Spironolactone (Aldactone -) 25 mg PO DAILY [facility] Last Admin: 04/16/17 09:53 Dose: 25 mg - Objective Vital Signs: Vital Signs Temperature 97.4 F L 04/16/17 09:53 Pulse Rate 62 04/16/17 09:53 Respiratory Rate 18 04/16/17 09:53 Blood Pressure 115/46 04/16/17 09:53 O2 Sat by Pulse Oximetry (%) 98 04/15/17 21:00 Constitutional: Yes: No Distress, Calm Cardiovascular: Yes: Regular Rate and Rhythm Respiratory: Yes: Regular, CTA Bilaterally Gastrointestinal: Yes: Normal Bowel Sounds, Soft Musculoskeletal: Yes: WNL Extremities: Yes: WNL Neurological: Yes: Alert, Oriented Psychiatric: Yes: Alert Labs: CBC, BMP 04/13/17 08:30 04/11/17 23:38 INR, PTT INR 1.27 (0.82-1.09) H 04/11/17 18:35 Assessment/Plan patient evaluated patient has labial abscess left labial abscess dm plan continue current mgmt patient has been afebrile wound cx awaited check wbc once we have wound cx we can switch to them accordingly
[2017-04-16] MEDS: ACETAMINOPHEN 325 MG TABLET (FP) PO PRN ×2 (17:52→22:26)
[2017-04-16] MEDS: oxyCODONE HCL 5 MG TABLET PO PRN ×2 (17:52→22:25)
[2017-04-16] MEDS: INSULIN DETEMIR 100 UNITS/ML MDV SQ SCH (22:24)
[2017-04-17] MEDS ORDERED: PIPERACILLIN/TAZOBACTAM 3.375 GM VIAL IVPB ONE ×3 (01:38→16:31)
[2017-04-17] MEDS ORDERED: DEXTROSE 5%-WATER - 50 ML IVPB ONE ×3 (01:39→16:31)
[2017-04-17] MEDS: PIPERACILLIN/TAZOB 3.375 GM 3.375 GM in DEXTROSE 5%-WATER - 50 ML IVPB SCH ×3 (01:50→17:33)
[2017-04-17] MEDS: INSULIN SLIDING SCALE (NOVOLOG) 1 VIAL SQ SCH ×4 (06:20→21:01)
[2017-04-17] MEDS: oxyCODONE HCL 5 MG TABLET PO PRN ×2 (06:22→14:22)
[2017-04-17] MEDS: ACETAMINOPHEN 325 MG TABLET (FP) PO PRN ×2 (06:23→14:21)
[2017-04-17 07:45] LABS: BASOPHIL 0.7 % (0-2.0); EOSINOPHIL 4.9 % (0-4.5); MCH 29.9 pg (25.7-33.7); MCHC 33.2 g/dl (32.0-36.0); MEAN CELL VOLUME 90.1 fl (80-96); MEAN PLT VOLUME 7.5 fl (7.5-11.1); NEUTROPHILS 56.8 % (42.8-82.8); PLATELET COUNT 189 K/MM3 (134-434); RDW 13.7 % (11.6-15.6); WHITE BLOOD COUNT 7.8 K/mm3 (4.0-10.0)
[2017-04-17 08:25] LABS: ALBUMIN 2.2 g/dl (3.4-5.0); ANION GAP 9 (8-16); BILIRUBIN,TOTAL 0.4 mg/dL (0.2-1.0); CALCIUM 7.3 mg/dL (8.5-10.1); CO2 21 mmol/L (21-32); CREATININE 0.6 mg/dL (0.55-1.02); GLUCOSE,RANDOM 110 mg/dL (74-106); SGOT/AST 7 U/L (15-37); SGPT/ALT 14 U/L (12-78); TOT PROT 5.2 g/dl (6.4-8.2)
[2017-04-17 08:26] LABS: ALK PHOS 47 U/L (45-117)
[2017-04-17] MEDS: RAMIPRIL 5 MG CAPSULE (FP) PO SCH (10:24)
[2017-04-17] MEDS: CARVEDILOL 12.5 MG TABLET (FP) PO SCH ×2 (10:24→21:00)
[2017-04-17] MEDS: SPIRONOLACTONE 25 MG TABLET (FP) PO SCH (10:25)
[2017-04-17] MEDS: SODIUM CHLORIDE 1,000 ML IV SCH (12:50)
--- NOTE | 2017-04-17 15:37 | PN ---
Progress Note, Physician History of Present Illness: patient stable no fever doing well - Current Medication List Current Medications: Active Medications Acetaminophen (Tylenol -) 650 mg PO Q6H PRN PRN Reason: FEVER OR PAIN Last Admin: 04/17/17 14:21 Dose: 650 mg Carvedilol (Coreg -) 12.5 mg PO BID [facility] Last Admin: 04/17/17 10:24 Dose: 12.5 mg Piperacillin Sod/Tazobactam (Sod 3.375 gm/ Dextrose) 50 mls @ 100 mls/hr IVPB Q8H-IV BO PRN Reason: Protocol Last Admin: 04/17/17 10:25 Dose: 100 mls/hr Sodium Chloride (Normal Saline -) 1,000 mls @ 75 mls/hr IV ASDIR [facility] Last Admin: 04/17/17 12:50 Dose: 75 mls/hr Insulin Aspart (Novolog Vial Sliding Scale -) 1 vial SQ ACHS BO PRN Reason: Protocol Last Admin: 04/17/17 12:47 Dose: Not Given Insulin Detemir (Levemir Vial) 44 units SQ HS [facility] Last Admin: 04/16/17 22:24 Dose: 44 unit Ondansetron HCl (Zofran Injection) 4 mg IVPB Q6H PRN PRN Reason: NAUSEA Last Admin: 04/17/17 01:50 Dose: 4 mg Oxycodone HCl (Roxicodone -) 5 mg PO Q4H PRN PRN Reason: PAIN Last Admin: 04/17/17 14:22 Dose: 5 mg Ramipril (Altace -) 5 mg PO DAILY [facility] Last Admin: 04/17/17 10:24 Dose: 5 mg Spironolactone (Aldactone -) 25 mg PO DAILY [facility] Last Admin: 04/17/17 10:25 Dose: 25 mg - Objective Vital Signs: Vital Signs Temperature 98.3 F 04/17/17 13:55 Pulse Rate 73 04/17/17 13:55 Respiratory Rate 18 04/17/17 13:55 Blood Pressure 146/67 04/17/17 13:55 O2 Sat by Pulse Oximetry (%) 99 04/17/17 09:00 Constitutional: Yes: No Distress, Calm Cardiovascular: Yes: Regular Rate and Rhythm Respiratory: Yes: Regular, CTA Bilaterally Gastrointestinal: Yes: Normal Bowel Sounds, Soft Genitourinary: Yes: Other (fungal infection noted in groin) Musculoskeletal: Yes: WNL Extremities: Yes: WNL Wound/Incision: Yes: Other Neurological: Yes: Alert, Oriented Psychiatric: Yes: Alert, Oriented Labs: CBC, BMP 04/17/17 06:00 04/17/17 06:00 INR, PTT INR 1.27 (0.82-1.09) H 04/11/17 18:35 Assessment/Plan patient evaluated patient has labial abscess left labial abscess dm plan cx result noted patient can be discharged home on clinda 300 mg 3 times a day for 5 more days please prescribe antifungal for her groin rest as per primary
--- NOTE | 2017-04-17 17:25 | PN ---
Progress Note, Physician Chief Complaint: C/o Pain afebrile, CBC normal mild drop in H/h History of Present Illness: 72 yrs with uncontrolled T2DM, CAD, CHF admitted with uncontrolled DM and Labial ulcer underwent I and D improving diarrhea resolved. - Current Medication List Current Medications: Active Medications Acetaminophen (Tylenol -) 650 mg PO Q6H PRN PRN Reason: FEVER OR PAIN Last Admin: 04/17/17 14:21 Dose: 650 mg Carvedilol (Coreg -) 12.5 mg PO BID BO Last Admin: 04/17/17 10:24 Dose: 12.5 mg Piperacillin Sod/Tazobactam (Sod 3.375 gm/ Dextrose) 50 mls @ 100 mls/hr IVPB Q8H-IV BO PRN Reason: Protocol Last Admin: 04/17/17 10:25 Dose: 100 mls/hr Insulin Aspart (Novolog Vial Sliding Scale -) 1 vial SQ ACHS BO PRN Reason: Protocol Last Admin: 04/17/17 12:47 Dose: Not Given Insulin Detemir (Levemir Vial) 44 units SQ HS BO Last Admin: 04/16/17 22:24 Dose: 44 unit Ondansetron HCl (Zofran Injection) 4 mg IVPB Q6H PRN PRN Reason: NAUSEA Last Admin: 04/17/17 01:50 Dose: 4 mg Oxycodone HCl (Roxicodone -) 5 mg PO Q4H PRN PRN Reason: PAIN Last Admin: 04/17/17 14:22 Dose: 5 mg Ramipril (Altace -) [address] [facility] Last Admin: 04/17/17 10:24 Dose: 5 mg Spironolactone (Aldactone -) [address] [facility] Last Admin: 04/17/17 10:25 Dose: 25 mg - Objective Vital Signs: Vital Signs Temperature 98.3 F 04/17/17 13:55 Pulse Rate 73 04/17/17 13:55 Respiratory Rate 18 04/17/17 13:55 Blood Pressure 146/67 04/17/17 13:55 O2 Sat by Pulse Oximetry (%) 99 04/17/17 09:00 Labs: CBC, BMP 04/17/17 06:00 04/17/17 06:00 INR, PTT INR 1.27 (0.82-1.09) H 04/11/17 18:35 Problem List - Problems (1) Abscess of left genital labia Code(s): N76.4 - ABSCESS OF VULVA (2) HTN (hypertension) Code(s): I10 - ESSENTIAL (PRIMARY) HYPERTENSION Qualifiers: Hypertension type: essential hypertension Qualified Code(s): I10 - Essential (primary) hypertension (3) Uncontrolled diabetes mellitus Code(s): E11.65 - TYPE 2 DIABETES MELLITUS WITH HYPERGLYCEMIA (4) Coronary artery disease Code(s): I25.10 - ATHSCL HEART DISEASE OF [place] CORONARY ARTERY W/O ANG PCTRS Qualifiers: Coronary Disease-Associated Artery/Lesion type: unspecified vessel or lesion type [place] vs. transplanted heart: [place] heart Associated angina: without angina Qualified Code(s): I25.10 - Atherosclerotic heart disease of [place] coronary artery without angina pectoris (5) NYHA class 3 heart failure with reduced ejection fraction Code(s): I50.9 - HEART FAILURE, UNSPECIFIED
[2017-04-17] MEDS ORDERED: FLUCONAZOLE 150 MG TABLET PO ONE (18:06)
[2017-04-17] MEDS: INSULIN DETEMIR 100 UNITS/ML MDV SQ SCH (21:00)
[2017-04-18] MEDS ORDERED: PIPERACILLIN/TAZOBACTAM 3.375 GM VIAL IVPB ONE ×2 (01:02→09:41)
[2017-04-18] MEDS ORDERED: DEXTROSE 5%-WATER - 50 ML IVPB ONE ×2 (01:03→09:42)
[2017-04-18] MEDS: PIPERACILLIN/TAZOB 3.375 GM 3.375 GM in DEXTROSE 5%-WATER - 50 ML IVPB SCH ×2 (01:05→09:52)
[2017-04-18 07:44] LABS: ALBUMIN 2.5 g/dl (3.4-5.0); ANION GAP 9 (8-16); CALCIUM 7.5 mg/dL (8.5-10.1); CO2 24 mmol/L (21-32); GLUCOSE,RANDOM 82 mg/dL (74-106)
[2017-04-18 07:48] LABS: ALK PHOS 50 U/L (45-117); BILIRUBIN,TOTAL 0.4 mg/dL (0.2-1.0); CREATININE 0.6 mg/dL (0.55-1.02); SGOT/AST 12 U/L (15-37); SGPT/ALT 18 U/L (12-78); TOT PROT 5.8 g/dl (6.4-8.2)
[2017-04-18 08:22] LABS: MCHC 33.6 g/dl (32.0-36.0); MEAN CELL VOLUME 89.3 fl (80-96); MEAN PLT VOLUME 7.2 fl (7.5-11.1); PLATELET COUNT 224 K/MM3 (134-434); RDW 13.8 % (11.6-15.6); WHITE BLOOD COUNT 9.6 K/mm3 (4.0-10.0)
[2017-04-18] MEDS: INSULIN SLIDING SCALE (NOVOLOG) 1 VIAL SQ SCH ×2 (08:29→11:11)
--- NOTE | 2017-04-18 09:20 | DS ---
Physical Examination Vital Signs: Vital Signs Temperature 97.6 F 04/18/17 06:00 Pulse Rate 64 04/18/17 06:00 Respiratory Rate 14 04/18/17 06:00 Blood Pressure 148/68 04/18/17 06:00 O2 Sat by Pulse Oximetry (%) 99 04/17/17 22:00 Labs: CBC, BMP 04/18/17 06:00 04/18/17 05:50 Discharge Summary Reason For Visit: ABSCESS OF LABIA MAJORA/DIABETES MELLITU Current Active Problems Abscess of labia majora (Acute) Abscess of left genital labia (Acute) Coronary artery disease (Acute) Diabetes (Acute) Uncontrolled diabetes mellitus (Acute) Condition: Stable - Instructions Referrals: Ryan Hassan MD [Primary Care Provider] - Paul Jones MD [Staff Physician] - - Home Medications Comprehensive Discharge Medication List: Ambulatory Orders Atorvastatin Ca [Lipitor] 40 mg PO HS 03/17/16 Carvedilol 12.5 mg PO BID 03/17/16 Insulin Aspart [Novolog Flexpen] 14 unit SQ TID 03/17/16 Insulin Glargine,Hum.rec.anlog [Lantus Solostar PEN (NF)] 32 units SQ HS Ramipril 5 mg PO DAILY 03/17/16 Spironolactone 25 mg PO DAILY 03/17/16 Acetaminophen [Tylenol .Regular Strength -] 650 mg PO Q6H PRN #0 tablet Carvedilol [Coreg -] 12.5 mg PO BID tablet 04/17/17 Insulin (Levemir) [Levemir Vial] 44 units SQ HS ml 04/17/17 Levofloxacin [Levaquin] 750 mg PO DAILY #5 tab 04/17/17 Oxycodone HCl [Roxicodone -] 5 mg PO Q4H PRN #20 tablet MDD 4 04/17/17 Ramipril [Altace] 5 mg PO DAILY #30 tab 04/17/17 Spironolactone [Aldactone -] 25 mg PO DAILY tablet 04/17/17
[2017-04-18 09:29] LABS: PLATELET ESTIMATE ADEQUATE (NORMAL); TOTAL CELLS COUNTED 100
[2017-04-18] MEDS ORDERED: INSULIN DETEMIR 100 UNITS/ML MDV SQ SCH (09:34)
[2017-04-18] MEDS ORDERED: PT OWN MED DRAWER 7, Y5N ONE (09:41)
[2017-04-18] MEDS: SPIRONOLACTONE 25 MG TABLET (FP) PO SCH (09:51)
[2017-04-18] MEDS: RAMIPRIL 5 MG CAPSULE (FP) PO SCH (09:51)
[2017-04-18] MEDS: CARVEDILOL 12.5 MG TABLET (FP) PO SCH (09:52)
[2017-04-18 09:58] VITALS: BP 162/66; PULSE 62; TEMP 98
[2017-04-18] MEDS ORDERED: LEVOFLOXACIN 750 MG TABLET PO SCH (10:00)
== END 2017-04-18 11:45 | disposition home health service (06) | DRG 746 ==
LOC: JER 15:58 → JERBED 18:31 → J5S 21:17
PROVIDERS: ADMIT Internal Medicine; ATTEND Internal Medicine
PROC: 0U9MXZZ Drainage of Vulva, External Approach (ICD-10-PCS; principal; 2017-04-12 16:04)
DX: N76.4 Abscess of vulva (principal); N17.9 Acute kidney failure, unspecified; I50.22 Chronic systolic (congestive) heart failure; G40.89 Other seizures; I25.5 Ischemic cardiomyopathy; I11.0 Hypertensive heart disease with heart failure; E11.65 Type 2 diabetes mellitus with hyperglycemia; I25.10 Atherosclerotic heart disease of native coronary artery without angina pectoris; Z79.4 Long term (current) use of insulin; E78.00 Pure hypercholesterolemia, unspecified; Z95.1 Presence of aortocoronary bypass graft; Z87.891 Personal history of nicotine dependence; D64.9 Anemia, unspecified; B95.4 Other streptococcus as the cause of diseases classified elsewhere
CPT/HCPCS: 36415; 71010-TC; 80053; 81003; 82947; 85025; 85027; 85610; 86850; 86900; 86901; 87040; 87070; 87086; 87186; 87205; 93005; 93010; 94760; 97116-GP; 97161-GP; 99285-25

== ENCOUNTER 2017-05-09 17:47 | Inpatient (IN) | payer OTHER ==
[2017-05-09 17:55] VITALS: BMI 29.5
--- NOTE | 2017-05-09 18:23 | PDOC ---
History of Present Illness <Reg Kelley - Last Filed: 05/09/17 23:26> - General History Source: Patient Exam Limitations: No Limitations <Isabel Bo - Last Filed: 05/09/17 23:45> - General Chief Complaint: Tachycardia Stated Complaint: CHEST PAIN Time Seen by Provider: 05/09/17 18:23 - History of Present Illness Initial Comments: 05/09/17 19:05 The patient is a 72 year old female, with a significant past medical history of h/o triple bypass (3 years ago), HNT, peripheral neuropathy and IDDM, who presents to the emergency department sent by Dr. Stephen for ECG changes. Patient notes that she saw her PMD Dr. Abraham today for a routine visit who performed an ECG and had a rate of 130 and he prompted her to be evaluated by Dr. Stephen who also found ECG changes, sinus tachycardia, and prompted her to present to the ED. Patient reports chest pressure on sunday. Patient also reports increased SOB for few months. Patient reports h/o of aspirin use after her triple bypass surgery but denies any use now. Patient denies any chest pain or palpitations now. No fever, chills, nausea and vomiting. No new leg swelling. Her reports recent travel to [place] for 2-3 hours but denies any long travel. 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 (Isabel Bo) Past History - Past Medical History Anemia: No Asthma: No Cancer: No Cardiac Disorders: Yes CVA: No COPD: No CHF: No Dementia: No Diabetes: Yes (IDDM) GI Disorders: No Disorders: No HTN: Yes Hypercholesterolemia: Yes Liver Disease: No Seizures: Yes (brain aneurysm (1991)) Thyroid Disease: No - Surgical History Cardiac Surgery: Yes (triple bypass 2015) Neurologic Surgery: Yes (CLIPPING OF ANEURYSM 1991) - Psycho/Social/Smoking Cessation Hx Anxiety: No Suicidal Ideation: No Smoking Status: No Smoking History: Never smoked Have you smoked in the past 12 months: No Number of Cigarettes Smoked Daily: 60 If you are a former smoker, when did you quit?: 1972 Hx Alcohol Use: No Drug/Substance Use Hx: No Substance Use Type: None Hx Substance Use Treatment: No <Reg Kelley - Last Filed: 05/09/17 23:26> <Isabel Bo - Last Filed: 05/09/17 23:45> - Past Medical History Allergies/Adverse Reactions: Allergies Allergy/AdvReac Type Severity Reaction Status Date / Time No Known Allergies Allergy Verified 05/09/17 17:55 Home Medications: Ambulatory Orders Atorvastatin Ca [Lipitor] 40 mg PO HS 03/17/16 Insulin Aspart [Novolog Flexpen] 20 unit SQ TID 03/17/16 Ramipril 5 mg PO DAILY 03/17/16 Acetaminophen [Tylenol .Regular Strength -] 650 mg PO Q6H PRN #0 tablet Spironolactone [Aldactone -] 25 mg PO DAILY tablet 04/17/17 Carvedilol [Coreg -] 12.5 mg PO BID 05/09/17 Gabapentin 100 mg PO DAILY 05/09/17 Insulin Glargine,Hum.rec.anlog [Lantus Solostar PEN (NF)] 40 units SQ HS Levomefolate/B6/B12/Algal Oil [Metanx Capsule] 1 each PO DAILY 05/09/17 Review of Systems <Reg Kelley - Last Filed: 05/09/17 23:26> - Review of Systems Able to Perform ROS?: Yes <Isabel Bo - Last Filed: 05/09/17 23:45> - Review of Systems Comments:: 05/09/17 19:06 CONSTITUTIONAL: No fever, no chills, no fatigue EYES: No visual changes ENT: No ear pain, no sore throat CARDIOVASCULAR: No chest pain, no palpitations RESPIRATORY: No cough, no SOB GI: No abdominal pain, no nausea, no vomiting, no constipation, no diarrhea GENITOURINARY: No dysuria, no frequency, no hematuria MUSKULOSKELETAL: No backpain, no joint pain, no myalgias SKIN: No rash NEURO: No headache (Isabel Bo) *Physical Exam <Reg Kelley - Last Filed: 05/09/17 23:26> <Isabel Bo - Last Filed: 05/09/17 23:45> - Vital Signs Last Vital Signs Temp Pulse Resp BP Pulse Ox 99.2 F 121 H 20 110/68 97 05/09/17 19:00 05/09/17 21:00 05/09/17 21:00 05/09/17 21:00 05/09/17 21:00 - Physical Exam Comments: 05/09/17 19:06 CONSTITUTIONAL: Well-appearing; well-nourished; in no apparent distress HEAD: Normocephalic; atraumatic EYES: PERRL; EOM intact ENMT: External appears normal; normal oropharynx NECK: Supple; nontender; no cervical lymphadenopathy CARD: (+)tachycardia. Normal S1, S2; no murmurs, rubs, or gallops RESP: Normal chest excursion with respiration; breath sounds clear and equal bilaterally; no wheezes, rhonchi, or rales ABD: Soft, non-distended; non-tender; no palpable organomegaly, no palpable hernias EXT: (+) +1 pitting edema bilaterally. Normal ROM in all four extremities; non- tender to palpation; distal pulses intact SKIN: Warm, dry, no rash NEURO: No focal neurological deficiencies. (Isabel Bo) ED Treatment Course - LABORATORY CBC & Chemistry Diagram: 05/09/17 19:00 05/09/17 19:00 <Reg Kelley - Last Filed: 05/09/17 23:26> - LABORATORY CBC & Chemistry Diagram: 05/09/17 19:00 05/09/17 19:00 <Isabel Bo - Last Filed: 05/09/17 23:45> - ADDITIONAL ORDERS Additional order review: Laboratory Results 05/09/17 05/09/17 05/09/17 21:55 20:44 19:15 INR D-Dimer Sodium Potassium Chloride Carbon Dioxide Anion Gap BUN Creatinine Creat Clearance w eGFR Random Glucose Calcium Total Bilirubin AST ALT Alkaline Phosphatase Creatine Kinase 106 Troponin I < 0.02 Total Protein Albumin TSH Urine Color Ltyellow Urine Appearance Clear Urine pH 5.0 Ur Specific [place] 1.015 Urine Protein Negative Urine Glucose (UA) Negative Urine Ketones Negative Urine Blood Negative Urine Nitrite Negative Urine Bilirubin Negative Urine Urobilinogen Negative Stool Occult Blood Negative 05/09/17 05/09/17 05/09/17 19:00 19:00 19:00 INR 1.16 H D-Dimer 735 H Sodium 138 Potassium 5.2 H D Chloride 107 Carbon Dioxide 23 Anion Gap 8 BUN 63 H D Creatinine 1.1 H D Creat Clearance w eGFR 48.82 Random Glucose 169 H D Calcium 9.6 D Total Bilirubin 0.6 D AST 13 L ALT 25 D Alkaline Phosphatase 64 D Creatine Kinase 123 Troponin I < 0.02 Total Protein 7.7 D Albumin 4.0 D TSH 1.21 D Urine Color Urine Appearance Urine pH Ur Specific [place] Urine Protein Urine Glucose (UA) Urine Ketones Urine Blood Urine Nitrite Urine Bilirubin Urine Urobilinogen Stool Occult Blood 05/09/17 19:00 RBC 4.06 D MCV 91.3 MCHC 33.4 RDW 14.8 MPV 8.4 D Neutrophils % 39.6 L D Lymphocytes % 44.8 H D Monocytes % 10.3 H Eosinophils % 4.6 H Basophils % 0.7 - Medications Given in the ED: ED Medications Discontinued Medications Generic Name Dose Route Start Last Admin Trade Name Freq PRN Reason Stop Dose Admin Acetaminophen 650 mg 05/09/17 23:20 05/09/17 23:36 Tylenol - PO 05/09/17 23:21 650 mg ONCE ONE Administration Sodium Chloride 250 mls @ 500 mls/hr 05/09/17 20:24 05/09/17 19:15 Normal Saline - IV 05/09/17 20:53 500 mls/hr ASDIR STA Administration Medical Decision Making <Reg Kelley - Last Filed: 05/09/17 23:26> <Isabel Bo - Last Filed: 05/09/17 23:45> - Medical Decision Making 05/09/17 21:33 Patient is a 72-year-old female with history of ischemic cardiomyopathy, low EF , diabetes, hypertension who presents the ER with 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 Patient endorses that she had chest discomfort at rest several days prior to arrival. Initial evaluation, patient is asymptomatic with heart rate of 127 and EKG revealing sinus tachycardia with borderline first-degree AV block and Q waves in the inferior leads which were present no previous EKG. CBC revealed no evidence of leukocytosis and a hematocrit of 37. CMP revealed significantly elevated BUN to creatinine ratio. First set of cardiac enzymes was within normal limit. Chest x- ray revealed no evidence of infiltrate or effusion, borderline cardiomegaly is noted. TSH is noted to be within normal limit as well. Patient was noted to be afebrile. Patient is noted to be low probability for PE and d-dimer was obtained which is noted to be 735. Differential diagnosis for patient's atrial tachycardia includes dehydration likely related to diuretic therapy versus PE versus euthyroid hypothyroidism. We'll judiciously hydrate with normal saline boluses. Will rule out lower extremity DVT by Doppler ultrasound. I am unable to obtain CTA of chest with this time due to acute kidney injury. Administration of Lovenox at this time for treatment of possible PE outweighs the risk of bleeding. We'll administer subcutaneous Lovenox pending stool guaiac. Will admit to telemetry further evaluation and treatment. Case discussed with Dr. Stephen of cardiology who agrees with the plan of care. 05/09/17 23:26 Patient is guaiac negative. Lower externally Doppler ultrasound shows no evidence of DVT. However, patient complains of severe right-sided headache. Will obtain stat head CT to rule out intracerebral hemorrhage. (Reg Kelley) 05/09/17 20:28 A call was placed to Dr. Stephen at his service. Awaiting a call back. 05/09/17 20:52 A second call was placed to Dr. Stephen at his service. Case discussed. 05/09/17 23:[address] is read as negative for acute pathology. (Isabel Bo) *DC/Admit/Observation/Transfer - Discharge Dispostion Admit: Yes <Reg Kelley - Last Filed: 05/09/17 23:26> <Isabel Bo - Last Filed: 05/09/17 23:45> Diagnosis at time of Disposition: Sinus tachycardia, ANGEL (acute kidney injury), Dehydration, Elevated d-dimer Dyspnea Qualifiers: Dyspnea type: unspecified Qualified Code(s): R06.00 - Dyspnea, unspecified - Referrals - Attestations Scribe Attestion: 05/09/17 19:08 Documentation prepared by RYAN Last, acting as medical certification specialist for Reg Kelley MD. (Isabel Bo) Physician Attestion: 05/09/17 23:14 The documentation was prepared by the scribe under my direct supervision. I have reviewed the documentation which correctly represents the findings, medical decision-making and critical action taken by me. (Reg Kelley)
[2017-05-09 19:20] LABS: BASOPHIL 0.7 % (0-2.0); EOSINOPHIL 4.6 % (0-4.5); MCH 30.5 pg (25.7-33.7); MCHC 33.4 g/dl (32.0-36.0); MEAN CELL VOLUME 91.3 fl (80-96); MEAN PLT VOLUME 8.4 fl (7.5-11.1); NEUTROPHILS 39.6 % (42.8-82.8); PLATELET COUNT 175 K/MM3 (134-434); RDW 14.8 % (11.6-15.6); WHITE BLOOD COUNT 5.8 K/mm3 (4.0-10.0)
[2017-05-09 19:23] LABS: URINE APPEARANCE CLEAR; URINE BILIRUBIN NEGATIVE (NEGATIVE); URINE BLOOD NEGATIVE (NEGATIVE); URINE COLOR LTYELLOW; URINE GLUCOSE (UA) NEGATIVE (NEGATIVE); URINE KETONE NEGATIVE (NEGATIVE); URINE LEUK ESTERASE NEGATIVE (NEGATIVE); URINE NITRITE NEGATIVE (NEGATIVE); URINE PROTEIN NEGATIVE (NEGATIVE); URINE UROBILINOGEN NEGATIVE mg/dL (0.2-1.0)
[2017-05-09 19:29] LABS: INR 1.16 (0.82-1.09); PROTHROMBIN TIME (PATIENT) 12.8 SEC (9.98-11.88)
[2017-05-09 19:54] LABS: ANION GAP 8 (8-16); BILIRUBIN,TOTAL 0.6 mg/dL (0.2-1.0); CALCIUM 9.6 mg/dL (8.5-10.1); CO2 23 mmol/L (21-32); CREATININE 1.1 mg/dL (0.55-1.02); GLUCOSE,RANDOM 169 mg/dL (74-106); SGOT/AST 13 U/L (15-37); SGPT/ALT 25 U/L (12-78); TOT PROT 7.7 g/dl (6.4-8.2)
[2017-05-09 20:02] LABS: ALK PHOS 64 U/L (45-117); CPK 123 IU/L (26-192); THYROID STIMULATING HORMONE 1.21 uIU/ml (0.358-3.74); TROPONIN I < 0.02 ng/ml (0.00-0.05)
[2017-05-09] MEDS ORDERED: SODIUM CHLORIDE 250 ML IV STA (20:24)
[2017-05-09] MEDS ORDERED: ACETAMINOPHEN 325 MG TABLET (FP) PO PRN (21:28)
[2017-05-09] MEDS ORDERED: SODIUM CHLORIDE 0.45% 1,000 ML IV SCH (21:30)
[2017-05-09] MEDS ORDERED: CARVEDILOL 12.5 MG TABLET (FP) ONE (22:28)
[2017-05-09] MEDS ORDERED: ATORVASTATIN CA 40 MG TABLET (FP) ONE (22:28)
[2017-05-09] MEDS ORDERED: ENOXAPARIN NA (PORCINE) 80 MG/0.8 ML DISP.SYRIN SQ ONE (22:28)
[2017-05-09] MEDS: ENOXAPARIN NA (PORCINE) 80 MG/0.8 ML DISP.SYRIN SQ SCH (22:32)
[2017-05-09] MEDS: CARVEDILOL 12.5 MG TABLET (FP) PO SCH (22:32)
[2017-05-09] MEDS: ATORVASTATIN CA 40 MG TABLET (FP) PO SCH (22:32)
[2017-05-09] MEDS ORDERED: INSULIN DETEMIR 100 UNITS/ML MDV SQ ONE (22:46)
[2017-05-09] MEDS: INSULIN DETEMIR 100 UNITS/ML MDV SQ SCH (22:49)
[2017-05-09 22:51] LABS: CPK 106 IU/L (26-192)
[2017-05-09 22:52] LABS: TROPONIN I < 0.02 ng/ml (0.00-0.05)
[2017-05-09] MEDS ORDERED: ACETAMINOPHEN 325 MG TABLET (FP) PO ONE (23:20)
[2017-05-09] MEDS ORDERED: ACETAMINOPHEN 325 MG TABLET (FP) ONE (23:21)
[2017-05-10 04:10] LABS: CPK 97 IU/L (26-192); TROPONIN I < 0.02 ng/ml (0.00-0.05)
[2017-05-10 06:58] LABS: BASOPHIL 0.8 % (0-2.0); EOSINOPHIL 5.6 % (0-4.5); MCHC 33.3 g/dl (32.0-36.0); MEAN CELL VOLUME 90.1 fl (80-96); MEAN PLT VOLUME 7.5 fl (7.5-11.1); NEUTROPHILS 29.4 % (42.8-82.8); PLATELET COUNT 148 K/MM3 (134-434); RDW 14.9 % (11.6-15.6); WHITE BLOOD COUNT 5.6 K/mm3 (4.0-10.0)
[2017-05-10 07:30] LABS: ALBUMIN 3.3 g/dl (3.4-5.0); ANION GAP 8 (8-16); BILIRUBIN,TOTAL 0.6 mg/dL (0.2-1.0); CALCIUM 8.5 mg/dL (8.5-10.1); CO2 22 mmol/L (21-32); CREATININE 0.8 mg/dL (0.55-1.02); GLUCOSE,RANDOM 91 mg/dL (74-106); SGOT/AST 11 U/L (15-37); SGPT/ALT 21 U/L (12-78); TOT PROT 6.4 g/dl (6.4-8.2)
[2017-05-10] MEDS: INSULIN SLIDING SCALE (NOVOLOG) 1 VIAL SQ SCH ×3 (07:37→17:14)
[2017-05-10 07:39] LABS: ALK PHOS 45 U/L (45-117); THYROID STIMULATING HORMONE 1.58 uIU/ml (0.358-3.74)
--- NOTE | 2017-05-10 08:59 | HP ---
Admitting History and Physical - Primary Care Physician PCP: Gio Abraham - Admission Chief Complaint: palpitations History of Present Illness: ER HISTORY - History of Present Illness Initial Comments: 05/09/17 19:05 The patient is a 72 year old female, with a significant past medical history of h/o triple bypass (3 years ago), HNT, peripheral neuropathy and IDDM, who presents to the emergency department sent by Dr. Goode for ECG changes. Patient notes that she saw her PMD Dr. Abraham today for a routine visit who performed an ECG and had a rate of 130 and he prompted her to be evaluated by Dr. Goode who also found ECG changes, sinus tachycardia, and prompted her to present to the ED. Patient reports chest pressure on sunday. Patient also reports increased SOB for few months. Patient reports h/o of aspirin use after her triple bypass surgery but denies any use now. Patient denies any chest pain or palpitations now. No fever, chills, nausea and vomiting. No new leg swelling. Her reports recent travel to [place] for 2-3 hours but denies any long travel. Pt seen and examined in ER- son at bedside As per son, pt has been feeling chest pressure and SOB for many months now. She lives with and son says that she is unable to climb stairs and does not ambulate much in and around the house due to SOB. She has trouble sleeping. She wakes up in the middle of night but denies PND. No orthopnea-- uses one pillow to sleep. Yesterday, she came to see Dr Abraham for routine check up and to establish care as she was new to the practice and EKG showed -- sinus tachycardia 130 bpm-- she went to see Dr goode - cardiology - afterwards and was advised to come to ER for evaluation. She does not have much blood sugar control per son as she is non compliant with diet. 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 (aneurysm s/p slipping, Left MOLD SANDER shunt) Cardiovascular: Yes: CAD (s/p CABG-2016), CHF, HTN, Hyperlipdemia Endocrine: Yes: Diabetes Mellitus - Past Surgical History Past Surgical History: Yes: Bypass - Smoking History Smoking history: Never smoked Have you smoked in the past 12 months: No Aproximately how many cigarettes per day: 60 If you are a former smoker, when did you quit?: 1971 - Alcohol/Substance Use Hx Alcohol Use: No Home Medications - Allergies Allergies/Adverse Reactions: Allergies Allergy/AdvReac Type Severity Reaction Status Date / Time No Known Allergies Allergy Verified 05/09/17 17:55 - Home Medications Home Medications: Ambulatory Orders Atorvastatin Ca [Lipitor] 40 mg PO HS 03/17/16 Insulin Aspart [Novolog Flexpen] 20 unit SQ TID 03/17/16 Ramipril 5 mg PO DAILY 03/17/16 Acetaminophen [Tylenol .Regular Strength -] 650 mg PO Q6H PRN #0 tablet Spironolactone [Aldactone -] 25 mg PO DAILY tablet 04/17/17 Carvedilol [Coreg -] 12.5 mg PO BID 05/09/17 Gabapentin 100 mg PO DAILY 05/09/17 Insulin Glargine,Hum.rec.anlog [Lantus Solostar PEN (NF)] 40 units SQ HS Levomefolate/B6/B12/Algal Oil [Metanx Capsule] 1 each PO DAILY 05/09/17 Review of Systems - Review of Systems Constitutional: denies: Chills, Fever Cardiovascular: reports: Chest Pain, Shortness of Breath. denies: Palpitations Respiratory: reports: Exercise Intolerance, SOB, SOB on Exertion. denies: Cough , Orthopnea, PND Physical Examination Vital Signs: Vital Signs Temperature 98.4 F 05/10/17 07:39 Pulse Rate 74 05/10/17 07:39 Respiratory Rate 16 05/10/17 07:39 Blood Pressure 100/88 05/10/17 07:39 O2 Sat by Pulse Oximetry (%) 98 05/10/17 07:39 Constitutional: Yes: No Distress, Calm Cardiovascular: Yes: Regular Rate and Rhythm, Other (sternal scar) Respiratory: Yes: Diminished. No: Rales, Rhonchi Gastrointestinal: Yes: Normal Bowel Sounds, Soft, Abdomen, Obese. No: Distention, Tenderness Edema: No Psychiatric: Yes: Alert, Oriented Labs: CBC, BMP 05/10/17 06:20 05/10/17 06:20 Imaging - Results Chest X-ray: Image Reviewed (no infiltrate or congestion) Cat Scan: Report Reviewed EKG: Image Reviewed (sinus tachycardia) Problem List - Problems (1) ANGEL (acute kidney injury) Code(s): N17.9 - ACUTE KIDNEY FAILURE, UNSPECIFIED (2) Dehydration Code(s): E86.0 - DEHYDRATION (3) Dyspnea Code(s): R06.00 - DYSPNEA, UNSPECIFIED Qualifiers: Dyspnea type: unspecified Qualified Code(s): R06.00 - Dyspnea, unspecified (4) Elevated d-dimer Code(s): R79.89 - OTHER SPECIFIED ABNORMAL FINDINGS OF BLOOD CHEMISTRY (5) Sinus tachycardia Code(s): R00.0 - TACHYCARDIA, UNSPECIFIED (6) Coronary artery disease Code(s): I25.10 - ATHSCL HEART DISEASE OF [place] CORONARY ARTERY W/O ANG PCTRS Qualifiers: Coronary Disease-Associated Artery/Lesion type: unspecified vessel or lesion type [place] vs. 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 mellitus chipper operator insulin use: with chipper operator use Qualified Code(s): E13.628 - Other specified diabetes mellitus with other skin complications; Z79.4 - senior care ( current) use of insulin (8) HTN (hypertension) Code(s): I10 - ESSENTIAL (PRIMARY) HYPERTENSION Qualifiers: Hypertension type: essential hypertension Qualified Code(s): I10 - Essential (primary) hypertension Assessment/Plan PLAN Received one dose of Lovenox as D Dimer was high-- will get CT chest with contrast today to R/O PE as her GFR >60 now Will need iv fluids for another 24 hours-- looks dehydrated also , caution for fluid overload with iv fluids CXR clear, lung exam benign cardiac enzymes negative Cardiology evaluation-- may need stress test TSH normal HR is better controlled with fluids and Coreg Monitor BGM-- will give insulin accordingly check A1C check lipid panel, electrolytes Time spent-- 40 min-- includes documentation, examination assessment and plan and discussion with son at bedside
--- NOTE | 2017-05-10 09:53 | PN ---
Progress Note (short form) - Note Progress Note: Noted that BUN is 46 but GFR >60 , normal creatinine, may go ahead with CT chest with iv contrast , but needs iv fluids afterwards.
[2017-05-10] MEDS ORDERED: SODIUM CHLORIDE 0.45% 1,000 ML IV SCH (09:54)
[2017-05-10] MEDS: SODIUM CHLORIDE 0.45% 1,000 ML IV SCH (10:47)
[2017-05-10] MEDS: CARVEDILOL 12.5 MG TABLET (FP) PO SCH (10:47)
[2017-05-10] MEDS: GABAPENTIN 100 MG CAPSULE (FP) PO SCH (10:47)
[2017-05-10 12:53] LABS: CPK 93 IU/L (26-192); TROPONIN I < 0.02 ng/ml (0.00-0.05)
--- NOTE | 2017-05-10 13:13 | EKG ---
Test Reason : Blood Pressure : / mmHG Vent. Rate : 126 BPM Atrial Rate : 126 BPM P-R Int : 188 ms QRS Dur : 076 ms QT Int : 342 ms P-R-T Axes : -25 -34 019 degrees QTc Int : 495 ms SINUS TACHYCARDIA LEFT AXIS DEVIATION ANTEROSEPTAL INFARCT , AGE UNDETERMINED ABNORMAL ECG WHEN COMPARED WITH ECG OF 11-APR-2017 18:29, VENT. RATE HAS INCREASED BY 44 BPM ANTEROSEPTAL INFARCT IS NOW PRESENT Confirmed by ERICK PEÑA MD ([id number]) on 05/10/2017 1:13:16 PM Referred By: Confirmed By:ERICK PEÑA MD
[2017-05-10 16:38] LABS: ANION GAP 8 (8-16); CALCIUM 8.6 mg/dL (8.5-10.1); CO2 23 mmol/L (21-32); GLUCOSE,RANDOM 249 mg/dL (74-106)
[2017-05-10 16:41] LABS: CPK 94 IU/L (26-192); TROPONIN I < 0.02 ng/ml (0.00-0.05)
[2017-05-10] MEDS ORDERED: FLU VACCINE QUAD 60 MCG/0.5 ML (MDV 17-18) IM ONE (21:17)
[2017-05-10] MEDS ORDERED: dilTIAZem HCL 50 MG/10 ML - 10 ML VIAL IVPB ONE (21:35)
--- NOTE | 2017-05-10 21:50 | PN ---
Progress Note (short form) - Note Progress Note: Refer to consult of 05-10-17.in attendance,till 9:50pm.
[2017-05-10] MEDS: METOPROLOL TARTRATE 25 MG TABLET (FP) PO SCH (22:15)
[2017-05-10] MEDS: ATORVASTATIN CA 40 MG TABLET (FP) PO SCH (22:15)
[2017-05-10] MEDS: INSULIN DETEMIR 100 UNITS/ML MDV SQ SCH (22:18)
[2017-05-10] MEDS: ENOXAPARIN NA (PORCINE) 80 MG/0.8 ML DISP.SYRIN SQ SCH (22:19)
[2017-05-11] MEDS: INSULIN SLIDING SCALE (NOVOLOG) 1 VIAL SQ SCH ×3 (06:01→17:27)
[2017-05-11 08:06] LABS: BASOPHIL 0.6 % (0-2.0); EOSINOPHIL 5.8 % (0-4.5); MCH 30.6 pg (25.7-33.7); MCHC 33.9 g/dl (32.0-36.0); MEAN CELL VOLUME 90.4 fl (80-96); NEUTROPHILS 36.5 % (42.8-82.8); PLATELET COUNT 142 K/MM3 (134-434); RDW 14.3 % (11.6-15.6); WHITE BLOOD COUNT 6.1 K/mm3 (4.0-10.0)
--- NOTE | 2017-05-11 08:08 | CONS ---
DATE OF CONSULTATION: 05/10/2017 CARDIOLOGY CONSULTATION CONSULTATION REQUESTED BY: Gio Abraham MD/Lindsey Tadeo MD LOCATION: [facility] CHIEF COMPLAINT: Chest pains. HISTORY: A 72-year-old white female with history of diabetes mellitus with multisystem involvement, coronary artery disease, ischemic dilated congestive cardiomyopathy, status post coronary artery bypass graftings, history of hypertension, insulin-dependent diabetes mellitus with peripheral neuropathy, history of reentrant supraventricular tachycardia, was seen in Dr. Abraham's office and was found to have a rapid heartbeat and was sent to the office. On questioning, patient says that she had experienced chest pain last Sunday night which was persistent but did not go to the hospital. She denied having palpitations, no history of lightheadedness, dizziness, presyncope, or syncope reported. No history of weakness. No history of chills or fever. On further questioning, daughter volunteered the information that patient approximately 2 weeks ago was hospitalized because she was complaining of severe pain involving the left thigh and went to see her mine wedge sawyer, was found to have an abscess, probably involving the perineum, which extended towards her abdomen. She had undergone an incision and drainage and treated with antibiotics. PAST MEDICAL HISTORY: As mentioned in the history of present illness. History of a ruptured cerebral aneurysm. PAST SURGICAL HISTORY: 1. Clipping of cerebral aneurysm. 2. Status post coronary artery bypass grafting. 3. Status post I&D. SOCIAL HISTORY: , has healthy children. Used to be a 3-pack cigarette smoker starting at the age of 18 and apparently stopped in her late 20s or early 30s. Denies alcohol abuse. FAMILY HISTORY: Father at age 48 of carcinoma of the stomach. Mother in her 80s also related to carcinoma of the stomach. Patient has 2 brothers and a sister. One of her older brothers is a diabetic. ALLERGIES: None recorded. MEDICATIONS: Medications prior to admission were as follows: 1. Carvedilol 12.5 mg p.o. b.i.d. 2. Spironolactone 25 mg p.o. daily. 3. Gabapentin 100 mg p.o. daily. 4. Mentax 1 p.o. daily. 5. Lantus SoloStar 40 units subcutaneous at bedtime. Current medications also include: 1. Atorvastatin 40 mg p.o. daily. 2. NovoLog insulin according to sliding scale. 3. Levemir insulin 35 units subcutaneous at bedtime. REVIEW OF SYSTEMS: Constitutional: No history of chills, fever, or night sweats reported. No history of unintentional weight loss. HEENT: No history of headaches, diplopia, blurred vision. No history of epistaxis, hoarseness, tinnitus, or deafness reported. Cardiovascular: See history of present illness. Respiratory: No history of cough, expectoration, or hemoptysis. Gastrointestinal: No history of nausea, vomiting, melena, or hematemesis. History of recent abdominal pain apparently related to abscess. No history of change of bowel habits reported. 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 No history of focal weakness or seizures reported. Endocrine: See history of present illness. No history of intolerance to cold or warm weather. Musculoskeletal: No history of myalgias or arthralgias reported. Hematologic: No history of anemia, ecchymosis, or bleeding. PHYSICAL EXAMINATION: General: A 72-year-old female who was in no acute distress, no pallor, cyanosis, clubbing, or jaundice. Vital Signs: Blood pressure 112/61 mmHg. Pulse 125 beats per minute. Temperature 98 degrees Fahrenheit. Respirations were 16 per minute. O2 saturation 96%. Neck: Supple. No jugular venous distention. Carotids were equal and upstrokes were normal. No bruits were heard and no thyromegaly was present. Heart: PMI was in the 5th intercostal space. No heaves or thrills. S1 and S2 were normal. No murmur or gallops were appreciated. Lungs: Clear on auscultation. Chest: Normal AP diameter. Expansion was symmetrical. There was a well-healed midline sternotomy scar. Abdomen: Soft, nontender. No hepatosplenomegaly or palpable masses were felt. Bowel sounds were present. No bruits were heard. Extremities: No calf tenderness or dependent edema. Femoral pulses were 2+. Dorsalis pedis and posterior tibial pulses were weak. DIAGNOSTIC DATA: ECG of May 09, 2017, was reported as sinus tachycardia, intraseptal wall myocardial infarction. In reviewing the cardiogram there is an incomplete right bundle branch block and QS pattern in V2-V3 with poor R wave progression V4, V5, and in V6. Left axis deviation suggestive of left anterior acacia block. There was QS pattern in III and aVF. On reviewing the EKGs, there is suspicion that patient has reentrant supraventricular tachycardia. Carotid sinus massage revealed underlying sinus rhythm with episodes of reentrant supraventricular tachycardia. CBC May 10, 2017: WBC count 5600. Hemoglobin 11 g. Platelet count 148,000. A rightward shift with elevated lymphocytes of 54.4%, and neutrophils were 29.4%. Eosinophils were elevated at 5.6%. Monocytes were 9.8%. Chemistries: Sodium 137, potassium 4.7, chloride 106, CO2 of 23 mmol/L. BUN was 45, creatinine 1.0 mg/dL. BUN on admission was 63 and creatinine was 1.1 mg/dL. CT chest with contrast did not reveal any pulmonary embolus. She did have tiny pulmonary nodules that apparently were unchanged from March 19, 2016. Lower extremity venous Doppler revealed no DVT identified involving either leg. D-dimer done on May 09, 2017, was 735. Echocardiogram interpretation summary: 1. There is mild concentric left ventricular hypertrophy. 2. Left ventricular systolic function is mildly to moderately reduced. 3. There is mild to moderate global hypokinesia of the left ventricle. 4. The right ventricle is normal in size and function. 5. The left atrium is mildly dilated. 6. There is trace mitral regurgitation. IMPRESSION: 1. Recent chest pain syndrome, etiology most likely related to coronary artery disease, angina pectoris. 2. Tachyarrhythmia appears to be reentrant supraventricular tachycardia. 3. Coronary artery disease status post coronary artery bypass grafting. 4. History of ischemic congestive cardiomyopathy. 5. Mild to moderate left ventricular systolic dysfunction secondary to number 4 or maybe tachycardia-induced cardiomyopathy. 6. Insulin-dependent diabetes mellitus with multisystem involvement. 7. Hypertension, currently normotensive. 8. Hypercholesterolemia. 9. Recent perineal abscess. RECOMMENDATIONS: 1. Discontinue Coreg and switch to Lopressor 25 mg p.o. q.12 hours. 2. IV Cardizem according to protocol initially to be given 10 mg and to be repeated if necessary. 3. Follow up ECG and enzymes. 4. T3, T4, TSH. 5. Further suggestion will depend upon her response to the above mentioned therapy. 6. Prognosis guarded. Thank you for your referral. HARRY SANCHEZ M.D. [id number]
[2017-05-11 08:53] LABS: CHOLESTEROL 111 mg/dL (50-200)
[2017-05-11 08:59] LABS: ANION GAP 7 (8-16); CALCIUM 8.4 mg/dL (8.5-10.1); CO2 24 mmol/L (21-32); CPK 83 IU/L (26-192); CREATININE 0.7 mg/dL (0.55-1.02); FREE T4 0.93 ng/dl (0.76-1.46); GLUCOSE,RANDOM 128 mg/dL (74-106); MAGNESIUM 2.2 mg/dL (1.8-2.4); THYROID STIMULATING HORMONE 1.81 uIU/ml (0.358-3.74); THYROXINE (T4) 6.6 ug/dl (4.8-13.9); TROPONIN I < 0.02 ng/ml (0.00-0.05)
--- NOTE | 2017-05-11 09:35 | EKG ---
Test Reason : Blood Pressure : / mmHG Vent. Rate : 077 BPM Atrial Rate : 077 BPM P-R Int : 196 ms QRS Dur : 082 ms QT Int : 402 ms P-R-T Axes : -01 -14 014 degrees QTc Int : 454 ms NORMAL SINUS RHYTHM SEPTAL INFARCT (CITED ON OR BEFORE 09-MAY-2017) ABNORMAL ECG WHEN COMPARED WITH ECG OF 10-MAY-2017 23:29, QUESTIONABLE CHANGE IN INITIAL [employer] OF ANTERIOR LEADS Confirmed by SOLEDAD RYAN MD ([id number]) on 05/11/2017 9:35:29 AM Referred By: HARRY SANCHEZ Confirmed By:SOLEDAD RYAN MD
--- NOTE | 2017-05-11 09:39 | EKG ---
Test Reason : Blood Pressure : / mmHG Vent. Rate : 114 BPM Atrial Rate : 114 BPM P-R Int : 000 ms QRS Dur : 082 ms QT Int : 374 ms P-R-T Axes : 000 -15 014 degrees QTc Int : 515 ms SINUS TACHYCARDIA ANTEROSEPTAL INFARCT (CITED ON OR BEFORE 09-MAY-2017) ABNORMAL ECG WHEN COMPARED WITH ECG OF 09-MAY-2017 17:56, NO SIGNIFICANT CHANGE WAS FOUND Confirmed by SOLEDAD RYAN MD ([id number]) on 05/11/2017 9:39:09 AM Referred By: Confirmed By:SOLEDAD RYAN MD
[2017-05-11] MEDS: METOPROLOL TARTRATE 25 MG TABLET (FP) PO SCH (10:16)
[2017-05-11] MEDS: SODIUM CHLORIDE 0.45% 1,000 ML IV SCH (10:16)
[2017-05-11] MEDS: GABAPENTIN 100 MG CAPSULE (FP) PO SCH (10:16)
[2017-05-11] MEDS: HEPARIN NA (PORCINE) 5,000 UNITS/ML 1ML VIAL SQ SCH ×2 (10:16→22:31)
--- NOTE | 2017-05-11 11:37 | PN ---
Progress Note (short form) - Note Progress Note: S: 72 year old female with history of CAD, s/p CABG, dilated ischemic cardiomyopathy, IDDM, HTN, peripheral neuropathy. History of reentrant supraventricular tachycardia. Was admitted with history of chest pain that occurred last Sunday night and was seen by PCP yesterday and was found to have a rapid heartbeat compatible with reentrant supraventricular tachycardia. Patient was admitted through the Emergency Dept. and was found to be dehydrated and was placed on IV fluids and as the tachycardia persisted carotid massage was done on 05/10/17 and confirmed the presence of reentrant tachycardia. She was treated with IV cardizem and appeared to convert to sinus rhythm. She deneis any chest pain or discomfort, no dyspnea has been reported wither at rest of with exertion, no PND or orthopnea. Denies having palpitations. Active Medications Generic Name Dose Route Start Last Admin Trade Name Freq PRN Reason Stop Dose Admin Acetaminophen 650 mg 05/09/17 21:28 Tylenol - PO Q6H PRN FEVER Atorvastatin Calcium 40 mg 05/09/17 22:00 05/10/17 22:15 Lipitor - PO 40 mg HS BO Administration Gabapentin 100 mg 05/10/17 10:00 05/11/17 10:16 Neurontin - PO 100 mg DAILY BO Administration Heparin Sodium (Porcine) 5,000 unit 05/11/17 10:00 05/11/17 10:16 Heparin - SQ 5,000 unit BID BO Administration Insulin Aspart 1 vial 05/10/17 07:00 05/11/17 06:01 Novolog Vial Sliding Scale - SQ Not Given TIDAC [facility] Protocol Insulin Detemir 35 units 05/09/17 22:00 05/10/17 22:18 Levemir Vial SQ 35 units HS BO Administration Metoprolol Tartrate 25 mg 05/10/17 22:00 05/11/17 10:16 Lopressor - PO 25 mg BID BO Administration O: 72 year old female was in no acute distress, no pallor, cyanosis, clubbing, or jaundice. Last Vital Signs Temp Pulse Resp BP Pulse Ox 98.1 F 76 20 129/66 99 05/11/17 06:00 05/11/17 06:00 05/11/17 06:00 05/11/17 06:00 05/11/17 06:00 Neck: Supple, no JVD, negative HJR, carotids were equal and upstrokes were normal, no thyromegaly appreciated. Heart: PMI was in the 5th intercostal space, no heaves or thrills, S1 and S2 were normal. No murmurs or gallops were appreciated. Lungs: Clear on auscultation bilaterally. Abdomen: Soft, nontender, no hepatosplenomegaly appreciated, and no palpable masses were felt. Extremities: No calf tenderness or dependent edema. Pulses are normal. CBC, BMP 05/11/17 06:00 05/11/17 06:00 Laboratory Results - last 24 hr 05/10/17 05/10/17 05/10/17 12:11 15:45 15:45 WBC RBC Hgb Hct MCV MCH MCHC RDW Plt Count MPV Neutrophils % Lymphocytes % Monocytes % Eosinophils % Basophils % Sodium 137 Potassium 4.7 Chloride 106 Carbon Dioxide 23 Anion Gap 8 BUN 45 H Creatinine 1.0 D POC Glucometer Random Glucose 249 H D Hemoglobin A1c % Calcium 8.6 Magnesium Creatine Kinase 93 94 Troponin I < 0.02 < 0.02 Triglycerides Cholesterol Total LDL Cholesterol HDL Cholesterol Vitamin B12 TSH Free T4 05/10/17 05/10/17 05/11/17 17:01 22:17 05:51 WBC RBC Hgb Hct MCV MCH MCHC RDW Plt Count MPV Neutrophils % Lymphocytes % Monocytes % Eosinophils % Basophils % Sodium Potassium Chloride Carbon Dioxide Anion Gap BUN Creatinine POC Glucometer [phone] 144 Random Glucose Hemoglobin A1c % Calcium Magnesium Creatine Kinase Troponin I Triglycerides Cholesterol Total LDL Cholesterol HDL Cholesterol Vitamin B12 TSH Free T4 05/11/17 05/11/17 05/11/17 06:00 06:00 06:00 WBC 6.1 RBC 3.56 L Hgb 10.9 Hct 32.2 L MCV 90.4 MCH 30.6 MCHC 33.9 RDW 14.3 Plt Count 142 MPV 8.0 Neutrophils % 36.5 L D Lymphocytes % 49.0 H Monocytes % 8.1 Eosinophils % 5.8 H Basophils % 0.6 Sodium 142 Potassium 4.0 Chloride 111 H Carbon Dioxide 24 Anion Gap 7 L BUN 29 H D Creatinine 0.7 D POC Glucometer Random Glucose 128 H D Hemoglobin A1c % Calcium 8.4 L Magnesium 2.2 Creatine Kinase 83 Troponin I < 0.02 Triglycerides 207 H Cholesterol 111 Total LDL Cholesterol 50 HDL Cholesterol 34 L Vitamin B12 993 H TSH 1.81 D Free T4 0.93 D 05/11/17 06:00 WBC RBC Hgb Hct MCV MCH MCHC RDW Plt Count MPV Neutrophils % Lymphocytes % Monocytes % Eosinophils % Basophils % Sodium Potassium Chloride Carbon Dioxide Anion Gap BUN Creatinine POC Glucometer Random Glucose Hemoglobin A1c % 10.5 H Calcium Magnesium Creatine Kinase Troponin I Triglycerides Cholesterol Total LDL Cholesterol HDL Cholesterol Vitamin B12 TSH Free T4 EC05/11/17 Sinus rhythm with IACD, incomplete RBBB, slow R wave progression, ASWMI of indeterminate age cannot be excluded. Impression: 1. Paroxysmal reentrant supraventricular tachycardia. 2. Coronary artery disease s/p CABG, 3. Chest pain syndrome most likely related to angina pectoris. 4. History of ischemic cardiomyopathy. 5. Left ventricular systolic dysfunction. 6. Insulin dependent diabetes mellitus, poor controlled. 7. Peripheral neuropathy. 8. Anemia, etiology to be determined. 9. Hypertension. 10. S/p clipping of cerebral arterial aneurysm. Recommendations: 1. Increase dose of lopressor to 50 mg BID. 2. Stricter control of DM. 3. Increase ambulation. 4. Continue cardiac medications as outlined. Prognosis: Guarded. Attestation: Documentation prepared by Eufemia Thomas, acting as medical lab specialist for Anthony Stephen MD.
--- NOTE | 2017-05-11 13:18 | PN ---
Progress Note (short form) - Note Progress Note: pt seen/ examined feels much better denies cp./ sob. pe ruled out drinking fluids Vital Signs Temp 98 F 05/11/17 10:00 Pulse 102 H 05/11/17 10:00 Resp 18 05/11/17 10:00 BP 130/70 05/11/17 10:00 Pulse Ox 99 05/11/17 06:00 Intake & Output 05/10/17 05/11/17 05/11/17 23:59 11:59 23:59 Intake Total 270 1450 Balance 270 1450 Weight 151 lb 149 lb 6.4 oz Intake: IV 70 840 1/2 Normal Saline 1,000 70 840 ml @ 70 mls/hr IV [facility] Rx#:[id number] Oral 200 610 Other: Voiding Method Toilet Toilet # Unmeasured Voids Void 1 3 Bowel Movement No No Height 5 ft Body Mass Index (BMI) 29.5 Weight Measurement Method Standing Scale Active Medications Acetaminophen (Tylenol -) 650 mg PO Q6H PRN PRN Reason: FEVER Atorvastatin Calcium (Lipitor -) 40 mg PO HS [facility] Last Admin: 05/10/17 22:15 Dose: 40 mg Gabapentin (Neurontin -) 100 mg PO DAILY [facility] Last Admin: 05/11/17 10:16 Dose: 100 mg Heparin Sodium (Porcine) (Heparin -) 5,000 unit SQ BID [facility] Last Admin: 05/11/17 10:16 Dose: 5,000 unit Insulin Aspart (Novolog Vial Sliding Scale -) 1 vial SQ TIDAC [facility] PRN Reason: Protocol Last Admin: 05/11/17 12:10 Dose: 2 unit Insulin Detemir (Levemir Vial) 35 units SQ [facility] Last Admin: 05/10/17 22:18 Dose: 35 units Metoprolol Tartrate (Lopressor -) 50 mg PO BID [facility] CBC, BMP 05/11/17 06:00 05/11/17 06:00 Physical Examination Constitutional: Yes: No Distress, Calm Cardiovascular: Yes: Regular Rate and Rhythm, Other (sternal scar) Respiratory: Yes: Diminished at bases . Gastrointestinal: Yes: Normal Bowel Sounds, Soft, Abdomen, Obese. No: Distention, Tenderness Edema: No Psychiatric: Yes: Alert,and awake. Imaging - Results Chest X-ray: Image Reviewed (no infiltrate or congestion) Cat Scan: Report Reviewed EKG: Image Reviewed (sinus tachycardia) Problem List - Problems (1) ANEGL (acute kidney injury) Code(s): N17.9 - ACUTE KIDNEY FAILURE, UNSPECIFIED (2) Dehydration Code(s): E86.0 - DEHYDRATION (3) Dyspnea Code(s): R06.00 - DYSPNEA, UNSPECIFIED Qualifiers: Dyspnea type: unspecified Qualified Code(s): R06.00 - Dyspnea, unspecified (4) Elevated d-dimer Code(s): R79.89 - OTHER SPECIFIED ABNORMAL FINDINGS OF BLOOD CHEMISTRY (5) Sinus tachycardia Code(s): R00.0 - TACHYCARDIA, UNSPECIFIED (6) Coronary artery disease Code(s): I25.10 - ATHSCL HEART DISEASE OF [place] CORONARY ARTERY W/O ANG PCTRS Qualifiers: Coronary Disease-Associated Artery/Lesion type: unspecified vessel or lesion type [place] vs. transplanted heart: [place] heart Associated angina: without angina Qualified Code(s): I25.10 - Atherosclerotic heart disease of [place] coronary artery without angina pectoris (7) Diabetes Code(s): E11.9 - TYPE 2 DIABETES MELLITUS WITHOUT COMPLICATIONS Qualifiers: Diabetes mellitus type: other specified (including [place]) Diabetes mellitus complication status: with skin complications Diabetes mellitus complication detail: with other skin complication Diabetes mellitus continuous churn buttermaker insulin use: with mcfp use Qualified Code(s): E13.628 - Other specified diabetes mellitus with other skin complications; Z79.4 - detention ( current) use of insulin (8) HTN (hypertension) Code(s): I10 - ESSENTIAL (PRIMARY) HYPERTENSION Qualifiers: Hypertension type: essential hypertension Qualified Code(s): I10 - Essential (primary) hypertension Assessment/Plan clinically better meds reviewed continue present care monitor bgm physical therapy. monitor heart rate echo noted discussed with Dr. Stephen also today Time spent-- 30 min-- includes documentation, examination assessment and plan and discussion with nursing staff/ chief operator reformer.
[2017-05-11] MEDS: METOPROLOL TARTRATE 50 MG TABLET (FP) PO SCH (22:31)
[2017-05-11] MEDS: INSULIN DETEMIR 100 UNITS/ML MDV SQ SCH (22:31)
[2017-05-11] MEDS: ATORVASTATIN CA 40 MG TABLET (FP) PO SCH (22:31)
[2017-05-12] MEDS: INSULIN SLIDING SCALE (NOVOLOG) 1 VIAL SQ SCH ×2 (06:02→12:22)
[2017-05-12 10:52] VITALS: BP 125/65; PULSE 90; TEMP 98
[2017-05-12] MEDS: METOPROLOL TARTRATE 50 MG TABLET (FP) PO SCH (10:54)
[2017-05-12] MEDS: HEPARIN NA (PORCINE) 5,000 UNITS/ML 1ML VIAL SQ SCH (10:54)
[2017-05-12] MEDS: GABAPENTIN 100 MG CAPSULE (FP) PO SCH (10:54)
--- NOTE | 2017-05-12 12:21 | DS ---
Physical Examination Vital Signs: Vital Signs Temperature 98 F 05/12/17 10:51 Pulse Rate 90 05/12/17 10:51 Respiratory Rate 20 05/12/17 10:51 Blood Pressure 125/65 05/12/17 10:51 O2 Sat by Pulse Oximetry (%) 97 05/11/17 21:00 Findings/Remarks: pt feels well no complains wants to go home family at bedside denies cp. denies sob. no abd pain. h rate much better. Vital Signs Temp 98 F 05/12/17 10:51 Pulse 90 05/12/17 10:51 Resp 20 05/12/17 10:51 BP 125/65 05/12/17 10:51 Pulse Ox 97 05/11/17 21:00 Intake & Output 05/11/17 05/12/17 05/12/17 23:59 11:59 23:59 Intake Total 410 Balance 410 Weight 148 lb 9.6 oz Intake: Oral 410 Other: Voiding Method Toilet Active Medications Acetaminophen (Tylenol -) 650 mg PO Q6H PRN PRN Reason: FEVER Atorvastatin Calcium (Lipitor -) 40 mg PO HS [facility] Last Admin: 05/11/17 22:31 Dose: 40 mg Gabapentin (Neurontin -) 100 mg PO DAILY [facility] Last Admin: 05/12/17 10:54 Dose: 100 mg Heparin Sodium (Porcine) (Heparin -) 5,000 unit SQ BID [facility] Last Admin: 05/12/17 10:54 Dose: 5,000 unit Insulin Aspart (Novolog Vial Sliding Scale -) 1 vial SQ TIDAC [facility] PRN Reason: Protocol Last Admin: 05/12/17 06:02 Dose: Not Given Insulin Detemir (Levemir Vial) 35 units SQ [facility] Last Admin: 05/11/17 22:31 Dose: 35 units Metoprolol Tartrate (Lopressor -) 50 mg PO BID [facility] Last Admin: 05/12/17 10:54 Dose: 50 mg MARC CHU 05/11/17 06:00 05/11/17 06:00 Constitutional: Yes: No Distress, Calm Eyes: Yes: Conjunctiva Clear Neck: Yes: Supple Cardiovascular: Yes: Regular Rate and Rhythm Respiratory: Yes: CTA Bilaterally Gastrointestinal: Yes: Soft Edema: No Neurological: Yes: Alert Labs: MARC CHU 05/11/17 06:00 05/11/17 06:00 Discharge Summary Reason For Visit: ACUTE KIDNEY INJURY/SINUS TACHYCARDIA Current Active Problems ANGEL (acute kidney injury) (Acute) Dehydration (Acute) Dyspnea (Acute) Elevated d-dimer (Acute) Sinus tachycardia (Acute) Hospital Course: The patient is a 72 year old female, with a significant past medical history of h/o triple bypass (3 years ago), HNT, peripheral neuropathy and IDDM, -- admitted due to reentrant atrial tachycardia pt also given fluids for dehydration. echo also done. meds adjusted pt now much better stable for d/c. discussed with Dr. Stephen also Meds reconcilled. eprescribed as needed. pt to f/u in office with me as well as Dr. Stephen in one week. discussed with family d/c time 35 min in examining/ documenting and coordating care. Discussed with nursing staff also. - Instructions Referrals: Gio Abraham MD [Primary Care Provider] - - Home Medications Comprehensive Discharge Medication List: Ambulatory Orders Atorvastatin Ca [Lipitor] 40 mg PO HS 03/17/16 Insulin Aspart [Novolog Flexpen] 20 unit SQ TID 03/17/16 Ramipril 5 mg PO DAILY 03/17/16 Acetaminophen [Tylenol .Regular Strength -] 650 mg PO Q6H PRN #0 tablet Spironolactone [Aldactone -] 25 mg PO DAILY tablet 04/17/17 Gabapentin 100 mg PO DAILY 05/09/17 Insulin Glargine,Hum.rec.anlog [Lantus Solostar PEN -] 40 units SQ HS 05/09/17 Levomefolate/B6/B12/Algal Oil [Metanx Capsule] 1 each PO DAILY 05/09/17 Metoprolol Tartrate [Lopressor -] 50 mg PO BID #60 tablet 05/12/17
== END 2017-05-12 13:55 | disposition home or self-care (01) | DRG 309 ==
LOC: JER 17:47 → JERBED 22:01 → J4W 05-10 20:18
PROVIDERS: ADMIT Internal Medicine; ATTEND Internal Medicine
DX: I47.1 Supraventricular tachycardia (principal); N17.9 Acute kidney failure, unspecified; E86.0 Dehydration; I25.10 Atherosclerotic heart disease of native coronary artery without angina pectoris; I10 Essential (primary) hypertension; G62.9 Polyneuropathy, unspecified; Z95.1 Presence of aortocoronary bypass graft; R07.89 Other chest pain; D64.9 Anemia, unspecified; I25.5 Ischemic cardiomyopathy; R06.00 Dyspnea, unspecified; R79.89 Other specified abnormal findings of blood chemistry; E11.65 Type 2 diabetes mellitus with hyperglycemia
CPT/HCPCS: 36415; 70450-TC; 71010-TC; 71260-TC; 80048; 80053; 80061; 81003; 82272; 82607; 83036; 83721; 83735; 84436; 84439; 84443; 84481; 84484; 85025; 85379; 85610; 87086; 93005; 93010; 93306-TC; 93970-TC; 97116-GP; 97161-GP; 99285-25; J1644

== ENCOUNTER 2019-02-23 04:47 | Inpatient (IN) | payer OTHER ==
--- NOTE | 2019-02-23 05:24 | PDOC ---
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 She and the state that she has been nonadherent to her recommended diet lately, eating more salt and sugar than she is supposed to. They note she continues to take her Lasix as prescribed. The patient denies any f/c/n/v/d/c, chest pain, SOB, palpitations, abdominal pain, or other symptoms. Past History - Past Medical History Allergies/Adverse Reactions: Allergies Allergy/AdvReac Type Severity Reaction Status Date / Time No Known Allergies Allergy Verified 02/23/19 05:02 Home Medications: Ambulatory Orders Atorvastatin Ca [Lipitor] 40 mg PO HS 03/17/16 Ramipril 5 mg PO DAILY 03/17/16 Spironolactone [Aldactone -] 25 mg PO DAILY tablet 04/17/17 Ascorbic Acid [Vitamin C -] 500 mg PO DAILY 02/23/19 Aspirin Coated [Ecotrin -] 81 mg PO DAILY 02/23/19 Calcium Carb, Citrate/Vit D3 [Calcium + D3 ER Tablet] 1 each PO DAILY 02/23/19 Donepezil HCl 5 mg PO DAILY 02/23/19 Folic Acid 0.4 mg PO DAILY 02/23/19 Furosemide 20 mg PO DAILY 02/23/19 Insulin Lispro [Humalog] 72 unit SQ DAILY 02/23/19 Metoprolol Tartrate [Lopressor -] 25 mg PO BID 02/23/19 Anemia: No Asthma: No Cancer: No Cardiac Disorders: Yes (CABG X3 '16, [place]) CVA: No COPD: No CHF: Yes Dementia: No Diabetes: Yes (IDDM) GI Disorders: No Disorders: No HTN: Yes Hypercholesterolemia: Yes Liver Disease: No Seizures: Yes (brain aneurysm (1991)) Thyroid Disease: No - Surgical History Abdominal Surgery: No Appendectomy: No Cardiac Surgery: Yes (triple bypass 2015) Cholecystectomy: No Lung Surgery: No Neurologic Surgery: Yes (CLIPPING OF ANEURYSM 1991) Orthopedic Surgery: No - Suicide/Smoking/Psychosocial Hx Smoking Status: No Smoking History: Never smoked Have you smoked in the past 12 months: No Number of Cigarettes Smoked Daily: 60 If you are a former smoker, when did you quit?: 30 YRS AGO Hx Alcohol Use: No Drug/Substance Use Hx: No Substance Use Type: None Hx Substance Use Treatment: No Review of Systems - Review of Systems Able to Perform ROS?: Yes Comments:: 02/23/19 05:31 GEN: no fever, chills, malaise, generalized weakness, or weight change HEENT: no ear pain, sore throat, vision change, or eye pain CV: BLE swelling, no chest pain, palpitations, lightheadedness, or syncope RESP: no cough, wheezing, or SOB GI: no abdominal pain, nausea, vomiting, diarrhea, constipation, or white/black/ bloody stool : no dysuria, hematuria, incontinence, retention, bleeding, or discharge MSK: BLE swelling NEURO: no headache, seizure, vertigo, numbness, tingling, or focal weakness PSYCH: no substance use, no behavior change SKIN: no jaundice, no rash ROS otherwise negative except as noted in HPI *Physical Exam - Vital Signs Last Vital Signs Temp Pulse Resp BP Pulse Ox 97.6 F 75 22 H 207/74 H 95 02/23/19 05:02 02/23/19 05:02 02/23/19 05:02 02/23/19 05:02 02/23/19 05:02 - Physical Exam Comments: 02/23/19 05:32 GENERAL: very pleasant elderly female accompanied by her pleasant , well- appearing, A/Ox4, no distress, answers questions appropriately HEENT: PERRLA, EOMI, moist mucous membranes NECK/BACK: no midline ttp, no spinal stepoff or deformity, no hematoma, full ROM , neck supple CARDIOVASCULAR: regular rate/rhythm, normal S1S2, no MGR, strong peripheral pulses, capillary refill <2 seconds, extremities wwp, 2+ pitting edema BLE LUNGS/RESPIRATORY: no respiratory distress, CTAB GI/ABDOMEN: symmetric [id number], normoactive BS, soft, no ttp, no midline pulsatile masses : no CVA tenderness EXTREMITIES: no muscle atrophy, no acute deformity, 2+ pitting edema BLE SKIN: warm and dry, no pallor, no jaundice, no rash, no bruising, no skin breakdown, no cuts, no lesions NEUROLOGICAL: GCS 15, CN II-XII grossly intact, 5/5 strength proximally and distally, no facial droop ED Treatment Course - LABORATORY CBC & Chemistry Diagram: 02/23/19 05:20 02/23/19 05:42 Medical Decision Making - Medical Decision Making 02/23/19 05:34 73YOF with h/o CHF who p/w BLE edema similar to her prior CHF Initial Vital Signs Temp Pulse Resp BP Pulse Ox 97.6 F 75 22 H 207/74 H 95 02/23/19 05:02 02/23/19 05:02 02/23/19 05:02 02/23/19 05:02 02/23/19 05:02 Exam: As noted in Physical Exam section. DDX IBNLT: CHF, pulmonary edema, COPD, asthma, other lung disease, PNA/ bronchitis, anemia, ACS, pericarditis, tamponade, AD, PE, PTX, allergic reaction , malignancy (e.g. causing pericardial effusion or vascular shunt), other infection, pulmonary HTN, etc. W/U ordered: Labs as noted below, EKG CXR TX ordered: NTG SL, Lasix IV push EKG: Reviewed; results as noted in ECG Review section. CXR: Pulmonary vascular congestion. Laboratory Tests 02/23/19 02/23/19 02/23/19 05:20 05:42 05:42 WBC 6.1 RBC 3.43 L Hgb 10.4 L Hct 31.0 L MCV 90.3 MCH 30.3 MCHC 33.5 RDW 14.0 Plt Count 170 MPV 7.8 Absolute Neuts (auto) 3.1 Neutrophils % 50.5 D Lymphocytes % 36.0 D Monocytes % 9.0 Eosinophils % 3.7 Basophils % 0.8 Nucleated RBC % 0 PT with INR 12.50 INR 1.06 Sodium 144 Potassium 3.7 Chloride 111 H Carbon Dioxide 26 Anion Gap 7 L BUN 30.9 H Creatinine 0.8 Est GFR (CKD-EPI)AfAm 84.77 Est GFR (CKD-EPI)NonAf 73.14 Random Glucose 149 H Calcium 7.9 L Magnesium 2.1 Total Bilirubin 0.4 AST 17 ALT 21 Alkaline Phosphatase 79 Creatine Kinase 201 H Creatine Kinase Index 1.4 CK-MB (CK-2) 3.0 Troponin I < 0.02 B-Natriuretic Peptide 1442.8 H Total Protein 5.8 L Albumin 2.8 L 02/23/19 07:00 The Pt is unsafe for discharge at this time. They require further hospital observation, workup, and treatment. Pt needs IV meds 2/2 likely bowel edema as PO medications likely less effective. Dr. Newberry kindly assumes care of this patient at the end of my shift. *DC/Admit/Observation/Transfer Diagnosis at time of Disposition: CHF exacerbation Qualifiers: Heart failure type: unspecified Qualified Code(s): I50.9 - Heart failure, unspecified - Discharge Dispostion Condition at time of disposition: Guarded - Referrals - Patient Instructions - Post Discharge Activity
[2019-02-23] MEDS ORDERED: FUROSEMIDE 40 MG/4 ML INJECTABLE VIAL IVPUSH ONE (05:26)
[2019-02-23] MEDS ORDERED: NITROGLYCERIN SUBLINGUAL 1/150 0.4 MG TAB SL ONE (05:28)
--- NOTE | 2019-02-23 05:28 | PDOC ---
Attending Attestation - Resident Resident Name: TadeoJaney - ED Attending Attestation I have performed the following: I have examined & evaluated the patient, The case was reviewed & discussed with the resident, I agree w/resident's findings & plan - HPI HPI: 02/23/19 05:27 Pt comes with swollen legs bilat. SHe has no other complaints. She went out to eat and ate a lot of salty food. Pt doesn't stick to a diet. - Physicial Exam PE: 02/23/19 05:28 Agree with resident exam - Medical Decision Making 02/23/19 05:56 Pt given SL NTG; also given lasix. Pt is comfortable in the ER. 02/23/19 05:58 Awaiting labs. Heart Score/ECG Review - ECG Intrepretation Rhythm: Regular Rhythm - [place]: Normal - P and CA Prominent R with upright T in V1 (true posterior IA): No - ST and T Early Repolarization: No Non Specific ST-T Wave changes: Yes Flattened T Waves: Yes Prolonged Q-T Interval: No - ECG Impressions Normal ECG: No Non-specific ST Elevation: No Ischemic Changes: Yes
[2019-02-23] MEDS ORDERED: FUROSEMIDE 40 MG/4 ML INJECTABLE VIAL ONE ×2 (05:33→10:14)
[2019-02-23 05:50] LABS: BASO % 0.8 % (0-2.0); EOS % 3.7 % (0-4.5); HEMOGLOBIN 10.4 GM/dL (10.7-15.3); MCH 30.3 pg (25.7-33.7); MCHC 33.5 g/dl (32.0-36.0); MEAN CELL VOLUME 90.3 fl (80-96); MEAN PLT VOLUME 7.8 fl (7.5-11.1); NEUT % 50.5 % (42.8-82.8); PLATELET COUNT 170 K/MM3 (134-434); RBC 3.43 M/mm3 (3.60-5.2); WHITE BLOOD COUNT 6.1 K/mm3 (4.0-10.0)
[2019-02-23 06:04] LABS: INR 1.06 (0.83-1.09); PROTHROMBIN TIME (PATIENT) 12.5 SEC (9.7-13.0)
[2019-02-23 06:19] LABS: ALBUMIN 2.8 g/dl (3.4-5.0); ALK PHOS 79 U/L (45-117); ANION GAP 7 MMOL/L (8-16); BILIRUBIN,TOTAL 0.4 mg/dL (0.2-1); BLOOD UREA NITROGEN 30.9 mg/dL (7-18); CALCIUM 7.9 mg/dL (8.5-10.1); CHLORIDE 111 mmol/L (98-107); CO2 26 mmol/L (21-32); CREATININE 0.8 mg/dL (0.55-1.3); GLUCOSE,RANDOM 149 mg/dL (74-106); MAGNESIUM 2.1 mg/dL (1.8-2.4); N-TERMINAL BNP 1442.8 pg/ml (5-125); POTASSIUM 3.7 mmol/L (3.5-5.1); SGOT/AST 17 U/L (15-37); SGPT/ALT 21 U/L (13-61); SODIUM 144 mmol/L (136-145); TOT PROT 5.8 g/dl (6.4-8.2)
--- NOTE | 2019-02-23 07:02 | PDOC ---
*Physical Exam - Vital Signs Last Vital Signs Temp Pulse Resp BP Pulse Ox 97.6 F 64 18 160/61 95 02/23/19 05:02 02/23/19 06:39 02/23/19 06:39 02/23/19 06:39 02/23/19 06:39 ED Treatment Course - LABORATORY CBC & Chemistry Diagram: 02/23/19 05:20 02/23/19 05:42 - ADDITIONAL ORDERS Additional order review: Laboratory Results 02/23/19 02/23/19 05:42 05:42 PT with INR 12.50 INR 1.06 Sodium 144 Potassium 3.7 Chloride 111 H Carbon Dioxide 26 Anion Gap 7 L BUN 30.9 H Creatinine 0.8 Est GFR (CKD-EPI)AfAm 84.77 Est GFR (CKD-EPI)NonAf 73.14 Random Glucose 149 H Calcium 7.9 L Magnesium 2.1 Total Bilirubin 0.4 AST 17 ALT 21 Alkaline Phosphatase 79 Creatine Kinase 201 H Creatine Kinase Index 1.4 CK-MB (CK-2) 3.0 Troponin I < 0.02 B-Natriuretic Peptide 1442.8 H Total Protein 5.8 L Albumin 2.8 L 02/23/19 05:20 RBC 3.43 L MCV 90.3 MCHC 33.5 RDW 14.0 MPV 7.8 Neutrophils % 50.5 D Lymphocytes % 36.0 D Monocytes % 9.0 Eosinophils % 3.7 Basophils % 0.8 - Medications Given in the ED: ED Medications Discontinued Medications Generic Name Dose Route Start Last Admin Trade Name Freq PRN Reason Stop Dose Admin Furosemide 40 mg 02/23/19 05:26 02/23/19 05:40 Lasix Injection - IVPUSH 02/23/19 05:27 40 mg ONCE ONE Administration Nitroglycerin 0.4 mg 02/23/19 05:28 02/23/19 05:40 Nitrostat - SL 02/23/19 05:29 0.4 mg ONCE ONE Administration Medical Decision Making - Medical Decision Making 02/23/19 07:[address] Piedra (Resident) and Dr. Barlow (Attending) 73 y/o female with CHF, CAD (s/p CABG), HTN, HLD c/o increased B/L LE edema. H/ o salt load. Adherence to Lasix QD. CXR shows cardiomegaly and congestion Duplex, Repeat Troponin pending Will page hospitalist for admission 02/23/19 07:28 Case d/w Dr. Graf, will admit inpatient Telemetry 02/23/19 07:34 Patient reassessed @ bedside Ambulatory, amenable to admission. Clinical Impression: Fluid overload superimposed on chronic CHF 2/2 to salt loading *DC/Admit/Observation/Transfer Diagnosis at time of Disposition: CHF exacerbation Qualifiers: Heart failure type: unspecified Qualified Code(s): I50.9 - Heart failure, unspecified - Discharge Dispostion Condition at time of disposition: Guarded - Referrals - Patient Instructions - Post Discharge Activity
--- NOTE | 2019-02-23 07:50 | HP ---
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 She and the state that she has been nonadherent to her recommended diet lately, eating more salt and sugar than she is supposed to. They note she continues to take her Lasix as prescribed. The patient denies any f/c/n/v/d/c, chest pain, SOB, palpitations, abdominal pain, or other symptoms. 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, HTN, HLD, IDDM with neuropathy; PAST SURGICAL HISTORY: CABG Social History: Smoking:none Alcohol:none Drugs: none Family History: Allergies No Known Allergies Allergy (Verified 02/23/19 05:02) HOME MEDICATIONS: Home Medications Medication Instructions Recorded Atorvastatin Ca [Lipitor] 40 mg PO HS 03/17/16 Ramipril 5 mg PO DAILY 03/17/16 Spironolactone [Aldactone -] 25 mg PO DAILY tablet 04/17/17 Ascorbic Acid [Vitamin C -] 500 mg PO DAILY 02/23/19 Aspirin Coated [Ecotrin -] 81 mg PO DAILY 02/23/19 Calcium Carb, Citrate/Vit D3 1 each PO DAILY 02/23/19 [Calcium + D3 ER Tablet] Donepezil HCl 5 mg PO DAILY 02/23/19 Folic Acid 0.4 mg PO DAILY 02/23/19 Furosemide 20 mg PO DAILY 02/23/19 Insulin Lispro [Humalog] 72 unit SQ DAILY 02/23/19 Metoprolol Tartrate [Lopressor -] 25 mg PO BID 02/23/19 REVIEW OF SYSTEMS CONSTITUTIONAL: Absent: fever, chills, diaphoresis, generalized weakness, malaise, loss of appetite, weight change HEENT: Absent: rhinorrhea, nasal congestion, throat pain, throat swelling, difficulty swallowing, mouth swelling, ear pain, eye pain, visual changes CARDIOVASCULAR: Absent: chest pain, syncope, palpitations, irregular heart rate, lightheadedness , peripheral edema RESPIRATORY: Absent: cough, , orthopnea, wheezing, stridor, hemoptysis GASTROINTESTINAL:PRESENT shortness of breath, dyspnea with exertion Absent: abdominal pain, abdominal distension, nausea, vomiting, diarrhea, constipation, melena, hematochezia GENITOURINARY: Absent: dysuria, frequency, urgency, hesitancy, hematuria, flank pain, genital pain MUSCULOSKELETAL: Absent: myalgia, arthralgia, joint swelling, back pain, neck pain SKIN: Absent: rash, itching, pallor HEMATOLOGIC/IMMUNOLOGIC: Absent: easy bleeding, easy bruising, lymphadenopathy, frequent infections ENDOCRINE: Absent: unexplained weight gain, unexplained weight loss, heat intolerance, cold intolerance NEUROLOGIC: Absent: headache, focal weakness or paresthesias, dizziness, unsteady gait, seizure, mental status changes, bladder or bowel incontinence PSYCHIATRIC: Absent: anxiety, depression, suicidal or homicidal ideation, hallucinations. PHYSICAL EXAMINATION Vital Signs - 24 hr 02/23/19 02/23/19 02/23/19 05:02 06:05 06:39 Temperature 97.6 F Pulse Rate 75 Pulse Rate [ 76 64 Right] Respiratory 22 H 18 18 Rate Blood Pressure 207/74 H Blood Pressure 184/75 H 160/61 [Right Arm] O2 Sat by Pulse 95 95 95 Oximetry (%) GENERAL: Awake, alert, and fully oriented, in no acute distress. HEAD: Normal with no signs of trauma. EYES: Pupils equal, round and reactive to light, extraocular movements intact, sclera anicteric, conjunctiva clear. No lid lag. EARS, NOSE, THROAT: Ears normal, nares patent, oropharynx clear without exudates. Moist mucous membranes. NECK: Normal range of motion, supple without lymphadenopathy, JVD, or masses. LUNGS: Breath sounds equal, clear to auscultation bilaterally. No wheezes, and no crackles. No accessory muscle use. HEART: Regular rate and rhythm, normal S1 and S2 without murmur, rub or gallop. ABDOMEN: Soft, nontender, not distended, normoactive bowel sounds, no guarding, no rebound, no masses. No hepatomegaly or splenomegaly. MUSCULOSKELETAL: Normal range of motion at all joints. No bony deformities or tenderness. No CVA tenderness. UPPER EXTREMITIES: 2+ pulses, warm, well-perfused. No cyanosis. No clubbing. No peripheral edema. LOWER EXTREMITIES: 2+ BILATERAL edema. NEUROLOGICAL: Cranial nerves II-XII intact. Normal speech. Normal gait. PSYCHIATRIC: Cooperative. Good eye contact. Appropriate mood and affect. SKIN: Warm, dry, normal turgor, no rashes or lesions noted, normal capillary refill. Laboratory Results - last 24 hr 02/23/19 02/23/19 02/23/19 05:20 05:42 05:42 WBC 6.1 RBC 3.43 L Hgb 10.4 L Hct 31.0 L MCV 90.3 MCH 30.3 MCHC 33.5 RDW 14.0 Plt Count 170 MPV 7.8 Absolute Neuts (auto) 3.1 Neutrophils % 50.5 D Lymphocytes % 36.0 D Monocytes % 9.0 Eosinophils % 3.7 Basophils % 0.8 Nucleated RBC % 0 PT with INR 12.50 INR 1.06 Sodium 144 Potassium 3.7 Chloride 111 H Carbon Dioxide 26 Anion Gap 7 L BUN 30.9 H Creatinine 0.8 Est GFR (CKD-EPI)AfAm 84.77 Est GFR (CKD-EPI)NonAf 73.14 Random Glucose 149 H Calcium 7.9 L Magnesium 2.1 Total Bilirubin 0.4 AST 17 ALT 21 Alkaline Phosphatase 79 Creatine Kinase 201 H Creatine Kinase Index 1.4 CK-MB (CK-2) 3.0 Troponin I < 0.02 B-Natriuretic Peptide 1442.8 H Total Protein 5.8 L Albumin 2.8 L ASSESSMENT/PLAN: HISTORY OF PRESENT ILLNESS: 73YOF with h/o CHF (on Lasix 20 mg daily), CAD ([place] 3 years ago resulting in 3- vessel CABG), brain aneurysm, 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 1 LEG SWELLING AND CONGESTION ON CXR - Heart failure r/o will order echo cardiac enzymes start on lasix 40 ivp daily cardiac consult leg sono r/o dvt orderd in er and awaiting to be done dw son 2 - dm start on insulin coverage till we fine out from pmd her exact dose of insulin 3= HTN ramipril and meotprolol 4 HIgh lipids restart on statins 5- cad start aspirin , cardiac enzymes, toprol and cardiology eval 6- Dementia h/o restart on aericept
[2019-02-23] MEDS ORDERED: PATIENT'S OWN MEDICATION (NON-FORMULARY) (Folic Acid [Folic Acid] 0.4 MG) PO SCH (10:00)
[2019-02-23] MEDS ORDERED: RAMIPRIL 5 MG CAPSULE (FP) PO SCH (10:00)
[2019-02-23] MEDS ORDERED: ASPIRIN COATED 81 MG TABLET.EC ONE (10:12)
[2019-02-23] MEDS ORDERED: METOPROLOL TARTRATE 25 MG TABLET (FP) ONE (10:12)
[2019-02-23] MEDS ORDERED: RAMIPRIL 5 MG CAPSULE (FP) ONE (10:13)
[2019-02-23] MEDS ORDERED: SPIRONOLACTONE 25 MG TABLET (FP) ONE (10:13)
[2019-02-23] MEDS ORDERED: FOLIC ACID 1 MG TABLET (FP) ONE (10:13)
[2019-02-23] MEDS: ASCORBIC ACID 500 MG TABLET (FP) PO SCH (10:32)
[2019-02-23] MEDS: FUROSEMIDE 40 MG/4 ML INJECTABLE VIAL IVPUSH SCH (10:32)
[2019-02-23] MEDS: SPIRONOLACTONE 25 MG TABLET (FP) PO SCH (10:32)
[2019-02-23] MEDS: FOLIC ACID 1 MG TABLET (FP) PO SCH (10:32)
[2019-02-23] MEDS: ASPIRIN COATED 81 MG TABLET.EC PO SCH (10:32)
[2019-02-23] MEDS: METOPROLOL TARTRATE 25 MG TABLET (FP) PO SCH ×2 (10:32→21:05)
[2019-02-23] MEDS: INSULIN SLIDING SCALE (NOVOLOG) 1 VIAL SQ SCH ×3 (11:28→21:39)
[2019-02-23] MEDS ORDERED: INSULIN (NOVOLOG) ASPART 100 UNITS/ML 10ML VIAL ONE (15:51)
--- NOTE | 2019-02-23 16:02 | PN ---
Progress Note (short form) - Note Progress Note: patient seen in the emergency room chart is reviewed Case also discussed with hospitalist physician Family at bedside Comfortable No distress Feels little better Vital Signs Temp 97.6 F 02/23/19 05:02 Pulse 71 02/23/19 10:31 Resp 18 02/23/19 10:31 BP 184/74 H 02/23/19 10:31 Pulse Ox 96 02/23/19 10:31 Intake & Output 02/22/19 02/23/19 02/23/19 23:59 11:59 23:59 Weight 140 lb Other: Height 5 ft Body Mass Index (BMI) 27.3 Active Medications Ascorbic Acid (Vitamin C -) 500 mg PO DAILY [facility] Last Admin: 02/23/19 10:32 Dose: 500 mg Aspirin (Ecotrin -) 81 mg PO DAILY [facility] Last Admin: 02/23/19 10:32 Dose: 81 mg Atorvastatin Calcium (Lipitor -) 40 mg PO HS [facility] Donepezil HCl (Aricept -) 5 mg PO HS [facility] Folic Acid (Folic Acid -) 1 mg PO DAILY [facility] Last Admin: 02/23/19 10:32 Dose: 1 mg Furosemide (Lasix Injection -) 40 mg IVPUSH DAILY [facility] Last Admin: 02/23/19 10:32 Dose: 40 mg Insulin Aspart (Novolog Vial Sliding Scale -) 1 vial SQ ACHS [facility]; Protocol Last Admin: 02/23/19 11:28 Dose: Not Given Metoprolol Tartrate (Lopressor -) 25 mg PO BID [facility] Last Admin: 02/23/19 10:32 Dose: 25 mg Ramipril (Altace -) 5 mg PO DAILY [facility] Last Admin: 02/23/19 10:32 Dose: 5 mg Spironolactone (Aldactone -) 25 mg PO DAILY [facility] Last Admin: 02/23/19 10:32 Dose: 25 mg CBC, BMP 02/23/19 05:20 02/23/19 05:42 Physical Exam S1 S2 RRR Lungs decreased At bases Abd- soft, NT +2 edema awake/ comfortable a/p CHF exacerbation IDDM Coronary artery disease Anemia Hypertension dementia Monitor on telemetry Echocardiogram Agree with IV Lasix Monitor lites Blood pressure elevated and adjust blood pressure medications Will follow DVT prophylaxis Problem List - Problems (1) CHF exacerbation Code(s): I50.9 - HEART FAILURE, UNSPECIFIED Qualifiers: Heart failure type: unspecified Qualified Code(s): I50.9 - Heart failure, unspecified (2) Coronary artery disease Code(s): I25.10 - ATHSCL HEART DISEASE OF [place] CORONARY ARTERY W/O ANG PCTRS Qualifiers: Coronary Disease-Associated Artery/Lesion type: unspecified vessel or lesion type [place] vs. transplanted heart: [place] heart Associated angina: without angina Qualified Code(s): I25.10 - Atherosclerotic heart disease of [place] coronary artery without angina pectoris
[2019-02-23] MEDS ORDERED: RAMIPRIL 5 MG CAPSULE (FP) PO ONE (16:04)
[2019-02-23] MEDS ORDERED: PT OWN MED DRAWER 7, Y5N ONE (20:57)
[2019-02-23] MEDS: ENOXAPARIN NA (PORCINE) 40 MG/0.4 ML DISP.SYRIN SQ SCH (21:04)
[2019-02-23] MEDS: ATORVASTATIN CA 40 MG TABLET (FP) PO SCH (21:05)
[2019-02-23] MEDS: DONEPEZIL HCL 5 MG TABLET (FP) PO SCH (21:40)
[2019-02-24] MEDS: INSULIN SLIDING SCALE (NOVOLOG) 1 VIAL SQ SCH ×4 (06:01→21:29)
[2019-02-24 06:11] LABS: BASO % 0.8 % (0-2.0); EOS % 4.1 % (0-4.5); HEMATOCRIT 31.3 % (32.4-45.2); HEMOGLOBIN 10.5 GM/dL (10.7-15.3); LYMPH % 41.2 % (8-40); MCH 29.9 pg (25.7-33.7); MCHC 33.4 g/dl (32.0-36.0); MEAN CELL VOLUME 89.5 fl (80-96); MONO % 10.2 % (3.8-10.2); NEUT % 43.7 % (42.8-82.8); PLATELET COUNT 163 K/MM3 (134-434); RDW 14.3 % (11.6-15.6); WHITE BLOOD COUNT 6.2 K/mm3 (4.0-10.0)
[2019-02-24 06:49] LABS: ALBUMIN 2.7 g/dl (3.4-5.0); BILIRUBIN,TOTAL 0.6 mg/dL (0.2-1); BLOOD UREA NITROGEN 28.2 mg/dL (7-18); CALCIUM 7.9 mg/dL (8.5-10.1); CREATININE 0.8 mg/dL (0.55-1.3); POTASSIUM 4.1 mmol/L (3.5-5.1); TOT PROT 5.5 g/dl (6.4-8.2)
--- NOTE | 2019-02-24 09:57 | PN ---
Progress Note (short form) - Note Progress Note: pt seen/ examined sitting in chair feels better decreased leg edema wt increased from 140 to 160 !!! < obviously unreliable--> Denies cp/ sob Bp running high HBa1c also 9.9 -- Vital Signs Temp 98.3 F 02/24/19 06:00 Pulse 59 L 02/24/19 06:00 Resp 19 02/24/19 06:00 BP 177/56 H 02/24/19 06:00 Pulse Ox 97 02/23/19 21:00 Intake & Output 02/23/19 02/23/19 02/24/19 11:59 23:59 11:59 Intake Total 50 Balance 50 Weight 140 lb 5.573 oz 161 lb 4.8 oz Intake: Oral 50 Other: # Unmeasured Voids Void 2 Bowel Movement No Height 5 ft 5 ft Body Mass Index (BMI) 27.3 0.0 Weight Measurement Method [facility] Active Medications Ascorbic Acid (Vitamin C -) 500 mg PO DAILY [facility] Last Admin: 02/23/19 10:32 Dose: 500 mg Aspirin (Ecotrin -) 81 mg PO DAILY [facility] Last Admin: 02/23/19 10:32 Dose: 81 mg Atorvastatin Calcium (Lipitor -) 40 mg PO HS [facility] Last Admin: 02/23/19 21:05 Dose: 40 mg Donepezil HCl (Aricept -) 5 mg PO HS [facility] Last Admin: 02/23/19 21:40 Dose: 5 mg Enoxaparin Sodium (Lovenox -) 40 mg SQ DAILY [facility] Last Admin: 02/23/19 21:04 Dose: 40 mg Folic Acid (Folic Acid -) 1 mg PO DAILY [facility] Last Admin: 02/23/19 10:32 Dose: 1 mg Furosemide (Lasix Injection -) 40 mg IVPUSH DAILY [facility] Last Admin: 02/23/19 10:32 Dose: 40 mg Insulin Aspart (Novolog Vial Sliding Scale -) 1 vial SQ [facility]; Protocol Last Admin: 02/24/19 06:01 Dose: 2 units Insulin Detemir (Levemir Vial) 10 units SQ HS [facility] Metoprolol Tartrate (Lopressor -) 50 mg PO BID [facility] Ramipril (Altace -) 10 mg PO DAILY [facility] Spironolactone (Aldactone -) 25 mg PO DAILY [facility] Last Admin: 02/23/19 10:32 Dose: 25 mg CBC, BMP 02/24/19 05:15 02/24/19 05:15 Hepatic Panel Total Bilirubin 0.6 mg/dL (0.2-1) 02/24/19 05:15 AST 20 U/L (15-37) 02/24/19 05:15 ALT 20 U/L (13-61) 02/24/19 05:15 Alkaline Phosphatase 59 U/L (45-117) 02/24/19 05:15 Albumin 2.7 g/dl (3.4-5.0) L 02/24/19 05:15 Abnormal Lab Results 02/24/19 02/24/19 02/24/19 05:15 05:15 05:50 RBC 3.50 L Hgb 10.5 L Hct 31.3 L Lymphocytes % 41.2 H Chloride 108 H Anion Gap 6 L BUN 28.2 H Random Glucose 156 H Hemoglobin A1c % 9.9 H Calcium 7.9 L Total Protein 5.5 L Albumin 2.7 L Triglycerides 161 H Physical Exam S1 S2 RRR Lungs decreased At bases Abd- soft, NT +1 edema-- Edema awake/ comfortable a/p CHF exacerbation IDDM Coronary artery disease Anemia Hypertension-- uncontrolled dementia Monitor on telemetry Echocardiogram-- IV Lasix Monitor lites Blood pressure elevated-- increase Metoprolol add basal insulin cardiology to follow Will follow Problem List - Problems (1) CHF exacerbation Code(s): I50.9 - HEART FAILURE, UNSPECIFIED Qualifiers: Heart failure type: unspecified Qualified Code(s): I50.9 - Heart failure, unspecified (2) Coronary artery disease Code(s): I25.10 - ATHSCL HEART DISEASE OF [place] CORONARY ARTERY W/O ANG PCTRS Qualifiers: Coronary Disease-Associated Artery/Lesion type: unspecified vessel or lesion type [place] vs. transplanted heart: [place] heart Associated angina: without angina Qualified Code(s): I25.10 - Atherosclerotic heart disease of [place] coronary artery without angina pectoris
[2019-02-24] MEDS: ASPIRIN COATED 81 MG TABLET.EC PO SCH (10:42)
[2019-02-24] MEDS: SPIRONOLACTONE 25 MG TABLET (FP) PO SCH (10:42)
[2019-02-24] MEDS: FOLIC ACID 1 MG TABLET (FP) PO SCH (10:42)
[2019-02-24] MEDS: METOPROLOL TARTRATE 25 MG TABLET (FP) PO SCH ×2 (10:43→21:31)
[2019-02-24] MEDS: ENOXAPARIN NA (PORCINE) 40 MG/0.4 ML DISP.SYRIN SQ SCH (10:45)
[2019-02-24] MEDS: ASCORBIC ACID 500 MG TABLET (FP) PO SCH (10:45)
[2019-02-24] MEDS: FUROSEMIDE 40 MG/4 ML INJECTABLE VIAL IVPUSH SCH (10:46)
[2019-02-24] MEDS: RAMIPRIL 5 MG CAPSULE (FP) PO SCH (10:46)
--- NOTE | 2019-02-24 11:28 | CON.CARD ---
Consult Consult Specialty:: Cardiology for Dr. Srinivasan Horne Referred by:: Gio Abraham MD Reason for Consultation:: Dyspnea - History of Present Illness Chief Complaint: Dyspnea History of Present Illness: 73YOF with h/o CHF (on Lasix 20 mg daily), CAD (DE 3 years ago resulting in 3- vessel CABG), brain aneurysm, left [employer]ICER 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 She and the state that she has been nonadherent to her recommended diet lately, eating more salt and sugar than she is supposed to. They note she continues to take her Lasix as prescribed. The patient denies any f/c/n/v/d/c, chest pain, SOB, palpitations, abdominal pain, or other symptoms. ER course was notable for: (1)leg swellings (2)congestion on cxr (3)normal cardiac enzymes - Past Medical History ENDOCRINOLOGY NURSE: Yes: Other (aneurysm s/p slipping, Left [employer]ER shunt) Cardio/Vascular: Yes: CAD (s/p CABG-2016), CHF, HTN, Hyperlipdemia Endocrine: Yes: Diabetes Mellitus - Past Surgical History Past Surgical History: Yes: Bypass - Alcohol/Substance Use Hx Alcohol Use: No - Smoking History Smoking history: Never smoked Have you smoked in the past 12 months: No Aproximately how many cigarettes per day: 60 If you are a former smoker, when did you quit?: 30 YRS AGO - Social History Usual Living Arrangement: With Spouse Home Medications - Allergies Allergies/Adverse Reactions: Allergies Allergy/AdvReac Type Severity Reaction Status Date / Time No Known Allergies Allergy Verified 02/23/19 05:02 - Home Medications Home Medications: Ambulatory Orders Atorvastatin Ca [Lipitor] 40 mg PO HS 03/17/16 Ramipril 5 mg PO DAILY 03/17/16 Spironolactone [Aldactone -] 25 mg PO DAILY tablet 04/17/17 Ascorbic Acid [Vitamin C -] 500 mg PO DAILY 02/23/19 Aspirin Coated [Ecotrin -] 81 mg PO DAILY 02/23/19 Calcium Carb, Citrate/Vit D3 [Calcium + D3 ER Tablet] 1 each PO DAILY 02/23/19 Donepezil HCl 5 mg PO DAILY 02/23/19 Folic Acid 0.4 mg PO DAILY 02/23/19 Furosemide 20 mg PO DAILY 02/23/19 Insulin Lispro [Humalog] 72 unit SQ DAILY 02/23/19 Metoprolol Tartrate [Lopressor -] 25 mg PO BID 02/23/19 Vital Signs: Vital Signs Temperature 98.3 F 02/24/19 06:00 Pulse Rate 59 L 02/24/19 06:00 Respiratory Rate 19 02/24/19 06:00 Blood Pressure 177/56 H 02/24/19 06:00 O2 Sat by Pulse Oximetry (%) 97 02/23/19 21:00 - Other Data Labs, Other Data: CBC, BMP 02/24/19 05:15 02/24/19 05:15 INR, PTT INR 1.06 (0.83-1.09) 02/23/19 05:42 Assessment/Plan 05/10/2017 Echo: Mild cLVH mild-mod decreased LV fxn, normal RV size and fxn, mil dLAE, tr MR 1. Acute on chronic diastolic/systolic heart failure 2. Coronary artery disease s/p CABG, angina pectoris 3. Chest pain syndrome most likely related to angina pectoris. 4. Ischemic cardiomyopathy. 5. Paroxysmal reentrant supraventricular tachycardia. 6. Insulin dependent diabetes mellitus, poor controlled. 7. Peripheral neuropathy. 8. Anemia, 9. Hypertension. 10. S/p clipping of cerebral arterial aneurysm 11. Dementia Recommendations: 1. IV diuresis with monitor diuretic response, renal fxn and electrolytes 2. Increase dose of lopressor to 50 mg BID, continue Lipitor 40 qhs, Altace 5 qd , Aldactone 25 qd, ASA 81 qd 3. Stricter control of DM. 4. Thank you for consultative opportunity Atorvastatin Ca [Lipitor] 40 mg PO HS 03/17/16 Ramipril 5 mg PO DAILY 03/17/16 Spironolactone [Aldactone -] 25 mg PO DAILY tablet 04/17/17 Ascorbic Acid [Vitamin C -] 500 mg PO DAILY 02/23/19 Aspirin Coated [Ecotrin -] 81 mg PO DAILY 02/23/19 Calcium Carb, Citrate/Vit D3 [Calcium + D3 ER Tablet] 1 each PO DAILY 02/23/19 Donepezil HCl 5 mg PO DAILY 02/23/19 Folic Acid 0.4 mg PO DAILY 02/23/19 Furosemide 20 mg PO DAILY 02/23/19 Insulin Lispro [Humalog] 72 unit SQ DAILY 02/23/19 Metoprolol Tartrate [Lopressor -] 25 mg PO BID 02/23/19
[2019-02-24] MEDS ORDERED: INSULIN REGULAR HUMAN 100 UNITS/ML *VIAL ONE (11:48)
[2019-02-24] MEDS ORDERED: INSULIN (NOVOLOG) ASPART 100 UNITS/ML 10ML VIAL ONE (12:29)
[2019-02-24 13:33] LABS: EPI CELLS 0.8 /HPF (0-5/HPF); HYALINE CASTS 3 /lpf (0-8); URINE APPEARANCE CLEAR; URINE BACTERIA 6.1 /hpf (NEGATIVE); URINE BILIRUBIN NEGATIVE (NEGATIVE); URINE COLOR YELLOW; URINE GLUCOSE (UA) 1+ (NEGATIVE); URINE KETONE NEGATIVE (NEGATIVE); URINE LEUK ESTERASE TRACE (NEGATIVE); URINE NITRITE NEGATIVE (NEGATIVE); URINE PROTEIN 3+ (NEGATIVE); URINE RBC 3 /hpf (0-4); URINE UROBILINOGEN 0.2 mg/dL (0.2-1.0); URINE WBC 4 /hpf (0-5)
--- NOTE | 2019-02-24 17:20 | ECHO ---
Name: KWAN WALL Exam:Adult Echocardiogram Study Date: 02/24/2019 12:37 PM Age: 73 yrs Reason For Study: acute cva Height: 60 in Weight: 140 lb BSA: 1.6 m2 MMode/2D Measurements & Calculations IVSd: 1.1 cm Ao root diam: 3.4 cm LVIDd: 4.3 cm LA dimension: 4.1 cm LVIDs: 2.9 cm ACS: 1.7 cm LVPWd: 0.93 cm IVSs: 1.5 cm LVPWs: 1.4 cm EDV(Teich): 83.3 ml ESV(Teich): 33.4 ml Doppler Measurements & Calculations MV E max rickie: 80.0 cm/sec Ao V2 max: 114.7 cm/sec MV A max rickie: 73.3 cm/sec Ao max P.3 mmHg MV E/A: 1.1 Ao V2 mean: 83.3 cm/sec Ao mean P.0 mmHg Ao V2 VTI: 30.5 cm MR max rickie: 358.3 cm/sec PI end-d rickie: 88.9 cm/sec MR max P.4 mmHg Med Peak E' Rickie: 3.2 cm/sec Med E/e': 25.1 Lat Peak E' Rickie: 3.6 cm/sec Lat E/e': 22.1 Procedure A complete two-dimensional transthoracic echocardiogram was performed (2D, M-mode, Doppler and color flow Doppler). Left Ventricle The left ventricle is normal in size. Left ventricular systolic function is normal. Ejection Fraction = 60- 65%. No regional wall motion abnormalities noted. Right Ventricle The right ventricle is normal size. The right ventricular systolic function is normal. Atria The left atrium is mildly dilated. Right atrial size is normal. Mitral Valve The mitral valve is normal in structure and function. There is mild mitral regurgitation. Tricuspid Valve The tricuspid valve is normal in structure and function. No tricuspid regurgitation. Aortic Valve The aortic valve is normal in structure and function. No aortic regurgitation is present. Pulmonic Valve The pulmonic valve is not well visualized. Trace to mild pulmonic valvular regurgitation. Great Vessels The aortic root is normal size. Pericardium/Pleura There is no pericardial effusion. Interpretation Summary The left ventricle is normal in size. Left ventricular systolic function is normal. No regional wall motion abnormalities noted. Ejection Fraction = 60-65%. The right ventricular systolic function is normal. The left atrium is mildly dilated. Right atrial size is normal. There is mild mitral regurgitation. Trace to mild pulmonic valvular regurgitation. There is no pericardial effusion. Previous study is not available for comparison Kareem Olguin MD 02/24/2019 05:20 PM
--- NOTE | 2019-02-24 21:07 | CONS ---
DATE OF CONSULTATION: DATE OF DICTATION: 02/24/2019 CARDIOLOGY CONSULTATION REQUESTING PHYSICIAN: Gio Abraham M.D. LOCATION: Telemetry unit. CHIEF COMPLAINT: 1. Increasing pedal edema. 2. Acute shortness of breath. 3. Nonproductive cough. HISTORY OF PRESENT ILLNESS: A 53-year-old female with history of coronary artery disease, status post myocardial infarction, history of ischemic dilated congestive cardiomyopathy, history of cardiogenic shock, insulin dependent diabetes mellitus, complicated by peripheral neuropathy and retinopathy. History of reactive supraventricular tachycardia, hypertension, hypertensive cardiovascular disease, hypercholesterolemia. Patient had developed increasing pedal edema for the past several weeks according to her , and on the day of admission she developed acute shortness of breath. Patient also was noticed to have nonproductive cough which progressively became worse. There is no history of chest pain or discomfort either at rest or with exertion, history of mild exertional dyspnea. Denies having orthopnea. No history of palpitations. PAST HISTORY: As mentioned in the history of present illness. SURGICAL HISTORY: Status post clipping with cerebral aneurysm. Status post CABG. Status post tonsillectomy. SOCIAL HISTORY: . Has a son and daughter who are healthy. She never smoked. Used to have a social drink. FAMILY HISTORY: Father at age 50 due to complications of carcinoma of the stomach. Mother at age 81 also due to carcinoma of the stomach. One sister and two brothers, one of the brothers is a diabetic, the other two siblings are healthy. ALLERGIES: None reported. CURRENT MEDICATIONS: Are as follows: 1. Ramipril 10 mg p.o. daily. 2. Lovenox 40 mg subcutaneous daily. 3. Metoprolol tartrate 50 mg p.o. b.i.d. 4. Atorvastatin 20 mg p.o. daily. 5. NovoLog insulin via sliding scale. 6. Levemir insulin 10 units subcutaneous at bedtime. 7. Furosemide 40 mg IV daily. 8. Spironolactone 25 mg p.o. daily. 9. Aspirin 81 mg p.o. daily. 10. Aricept 5 mg p.o. daily. 11. Folic acid 1 mg p.o. daily. 12. Ascorbic acid 500 mg p.o. daily. REVIEW OF SYSTEMS: Constitutional: No history of chills, fever, or night sweats. No history of unintentional weight loss. HEENT: No history of headaches, history of blurred vision and decreased visual acuity. No history of diplopia. No history of hoarseness or epistaxis. No history of tinnitus or deafness reported. Cardiovascular: See history of present illness. Respiratory: See history of present illness. No history of hemoptysis or tuberculosis. Gastrointestinal: Denies having nausea, vomiting, melena, or hematemesis. No history of abdominal pain or discomfort. No history of change in bowel habits. Neurological: History of . No history of seizures or syncope. No history of focal weakness reported. No history of lightheadedness, dizziness. Endocrine: See history of present illness. History of intolerance to warm or cold weather. Musculoskeletal: No history of myalgias or arthralgias. Genitourinary: No history of dysuria, frequency, or hematuria. Hematological/Lymphatics: History of anemia, bleeding, or ecchymosis. No history of lymph node enlargement. PHYSICAL EXAMINATION: General: A 73-year-old female in no acute distress, no pallor, cyanosis, clubbing, or jaundice. Vital signs: Blood pressure 169/63 mmHg. Earlier was 187/71 mmHg. Pulse was 67 beats per minute. Temperature was 98.2 degrees Fahrenheit. Respirations were 18 per minute. Weight was 73.164 kg. Neck: Supple. No jugulovenous distention, positive hepatojugular reflex, carotids were 2+, upstrokes were normal. Faint bilateral bruits versus radiation murmur more pronounced on the right. No thyromegaly was present. No supraclavicular or submandibular lymphadenopathy. Trachea was midline. Heart: PMI was in the 5th intercostal space, no heaves or thrills, S1 and S2 were normal. Grade 1/6 decrescendo systolic murmur was heard at the apex and along the left sternal border. No diastolic murmur or gallops were heard. Lungs: Scattered crepitations at the left base. Lung lynch were otherwise clear. Chest: Normal AP diameter. Expansion was symmetrical. There was a well healed midline sternotomy scar. Abdomen: Soft, protuberant, nontender, no hepatosplenomegaly or palpable masses were felt. The bowel sounds were heard. Extremities: 2+ bilateral pretibial edema. No calf tenderness elicited. Femoral pulses were 2+, dorsalis pedis pulses were 1+, posterior tibial pulses were weak. LABORATORY DATA: X-ray chest on February 13, 2019: Single AP view of the chest is being submitted since there is slightly weaker inspiration with slight rotation to the left, internal sutures, and other hardware within the clip, left [employer] ASSISTANT shunt catheter, congestive changes with some questionable atelectasis at the bases. There is a prominent mediastinum. Correlation recommended. Echocardiogram, interpretation summary: 1. Left ventricle is normal in size. 2. Left ventricular systolic function is normal. 3. No regional wall motion abnormality is noted. 4. Ejection fraction is 60% to 65%. 5. Right ventricular systolic function is normal. 6. Left atrium is mildly dilated. 7. Right atrial size is normal. 8. There is mild mitral regurgitation. 9. Trace to mild pulmonic valvular regurgitation. There is no pericardial effusion. ECG dated February 23, 2019: Sinus rhythm, anteroseptal wall myocardial infarction of indeterminate age, low voltage in limb leads, incomplete right bundle branch block, nonspecific ST and T abnormalities, no previous ECG is available for comparison. LABORATORY DATA: CBC: WBC 6200, hemoglobin 10.5 g/dL, hematocrit 31.3%, platelet count 163,000. Chemistry: Sodium 144, potassium 4.1, chloride 108, CO2 of 30 mmol/L, BUN 28.2, creatinine 0.8 mg/dL, random glucose 156 mg/dL, hemoglobin A1c 9.9%, calcium 7.9 mg/dL. BNP is not available. Total cholesterol 142, HDL 51, triglycerides 161, LDL 69 mg/dL. TSH 1.78. IMPRESSION: 1. Clinical presentation consistent with congestive heart failure, [place] Heart classification 4. 2. Coronary artery disease, status post coronary artery bypass grafting. 3. Status post cardiogenic shock. 4. Insulin dependent diabetes mellitus, poorly controlled. 5. Diabetic neuropathy. 6. History of diabetic retinopathy. 7. Hypertension, poorly controlled. 8. Hypercholesterolemia. 9. Poor compliance. 10. Status post clipping of rupture. 11. Suspect left ventricular diastolic dysfunction. RECOMMENDATION: 1. Concur with current line of treatment. 2. BNP. 3. Troponin levels. 4. Follow up ECG. 5. Dietary compliance is of paramount aspiration has been eating foods rich in salt, sugar, and fat. 6. Follow up x-ray chest, possible PA and lateral. 7. Prognosis guarded. Thank you for your referral. HARRY SANCHEZ M.D. [id number]
[2019-02-24] MEDS: INSULIN (LEVEMIR) 100 UNITS/ML UNITS SQ SCH (21:30)
[2019-02-24] MEDS: DONEPEZIL HCL 5 MG TABLET (FP) PO SCH (21:31)
[2019-02-24] MEDS: ATORVASTATIN CA 40 MG TABLET (FP) PO SCH (21:31)
--- NOTE | 2019-02-24 22:52 | HOSP ---
Subjective - Review of Symptoms Events since last encounter: Patient noted with elevated bp 190/68 post Metoprolol 50 mg given 1-2 hours ago , upon exam patient denies headache, sob/cp, noted with anxious/anxiety at bedside Will give xanax 0.25 x1. patient was seen by Dr. darling in AM metprolol dose was increased to 50 mg BID, remain on spironolactone 25 mg daily, ramipril 10 mg daily, pending cardiology follow up. Monitor BP trends. General: Yes: Other (anxious ) HEENT: No: Head Aches, Visual Changes, Eye Pain, Ear Pain, Dysphasia, Sinus Congestion, Post Nasal Drip, Sore Throat, Other Pulmonary: No: Dyspnea, Cough, Pleuritic Chest Pain, Other Cardiovascular: No: Chest Pain, Palpitations, Orthopnea, Paroxysmal Noc. Dyspnea , Edema, Light Headedness, Other Gastrointestinal: No: Nausea, NOSYM, Vomiting, Abdominal Pain, Diarrhea, Constipation, Melena, Hematochezia, Other Genitourinary: No: Dysuria, NOSYM, Frequency, Incontinence, Hematuria, Retention , Other Musculoskeletal: No: No Symptoms, Back Pain, Crepitus, Decreased ROM, Extremity Pain, Joint Pain, Joint Swelling, Muscle Pain, Muscle Cramps, Muscle Weakness, Other Physical Examination Vital Signs: Vital Signs Temperature 98.1 F 02/24/19 22:00 Pulse Rate 62 02/24/19 22:00 Respiratory Rate 15 02/24/19 22:00 Blood Pressure 190/68 H 02/24/19 22:00 O2 Sat by Pulse Oximetry (%) 98 02/24/19 19:41 Constitutional: Yes: Well Nourished, No Distress, Anxious Eyes: Yes: WNL, Conjunctiva Clear HENT: Yes: Atraumatic, Normocephalic Neck: Yes: Supple, Trachea Midline Respiratory: Yes: Regular, CTA Bilaterally Gastrointestinal: Yes: Normal Bowel Sounds, Soft Musculoskeletal: Yes: WNL Neurological: Yes: Alert, Oriented Labs: CBC, BMP 02/24/19 05:15 02/24/19 05:15 Hospitalist Encounter Assessment: HTN - noted anxious/ anxiety, give 0.25 mg ativan - continue with metoprolol - Continue with Ramipril - Continue with Spironolactone - pending cardiololgy follow up - monitor vitals trend
[2019-02-24] MEDS ORDERED: LORazepam 0.5 MG TABLET PO ONE (22:53)
[2019-02-25] MEDS: INSULIN SLIDING SCALE (NOVOLOG) 1 VIAL SQ SCH ×4 (06:13→21:40)
--- NOTE | 2019-02-25 10:11 | PN ---
Progress Note (short form) - Note Progress Note: feeling well would like to go home soon has SOB on ambulation - but better per pt Vital Signs - 24 hr 02/24/19 02/24/19 02/24/19 14:00 16:00 18:00 Temperature 98.2 F 98.4 F Pulse Rate 83 67 68 Respiratory 18 18 16 Rate Blood Pressure 156/61 169/63 172/58 H O2 Sat by Pulse Oximetry (%) 02/24/19 02/24/19 02/25/19 19:41 22:00 02:00 Temperature 98.1 F 98.6 F Pulse Rate 62 52 L Respiratory 18 15 14 Rate Blood Pressure 190/68 H 192/55 H O2 Sat by Pulse 98 Oximetry (%) 02/25/19 06:00 Temperature 98.4 F Pulse Rate 57 L Respiratory 16 Rate Blood Pressure 157/99 O2 Sat by Pulse Oximetry (%) Current Medications Generic Name Dose Route Start Last Admin Trade Name Freq PRN Reason Stop Dose Admin Ascorbic Acid 500 mg 02/23/19 10:00 02/24/19 10:45 Vitamin C - PO 500 mg DAILY BO Administration Aspirin 81 mg 02/23/19 10:00 02/24/19 10:42 Ecotrin - PO 81 mg DAILY BO Administration Atorvastatin Calcium 40 mg 02/23/19 22:00 02/24/19 21:31 Lipitor - PO 40 mg HS BO Administration Donepezil HCl 5 mg 02/23/19 22:00 02/24/19 21:31 Aricept - PO 5 mg HS BO Administration Enoxaparin Sodium 40 mg 02/23/19 20:00 02/24/19 10:45 Lovenox - SQ 40 mg DAILY OB Administration Folic Acid 1 mg 02/23/19 10:00 02/24/19 10:42 Folic Acid - PO 1 mg DAILY BO Administration Furosemide 40 mg 02/23/19 10:00 02/24/19 10:46 Lasix Injection - IVPUSH 40 mg DAILY BO Administration Insulin Aspart 1 vial 02/23/19 11:00 02/25/19 06:13 Novolog Vial Sliding Scale - SQ Not Given ACHS [facility] Protocol Insulin Detemir 10 units 02/24/19 22:00 02/24/19 21:30 Levemir Vial SQ 10 units HS BO Administration Metoprolol Tartrate 50 mg 02/24/19 10:00 02/24/19 21:31 Lopressor - PO 50 mg BID BO Administration Ramipril 10 mg 02/24/19 10:00 02/24/19 10:46 Altace - PO 10 mg DAILY BO Administration Spironolactone 25 mg 02/23/19 10:00 02/24/19 10:42 Aldactone - PO 25 mg DAILY BO Administration Laboratory Results - last 24 hr 02/23/19 02/24/19 02/24/19 12:34 11:32 17:11 POC Glucometer 238 194 Urine Color Yellow Urine Appearance Clear Urine pH 7.0 D Ur Specific [place] 1.010 Urine Protein 3+ H Urine Glucose (UA) 1+ H Urine Ketones Negative Urine Blood Trace Urine Nitrite Negative Urine Bilirubin Negative Urine Urobilinogen 0.2 Ur Leukocyte Esterase Trace Urine WBC (Auto) 4 Urine RBC (Auto) 3 Urine Casts (Auto) 3 U Epithel Cells (Auto) 0.8 Urine Bacteria (Auto) 6.1 02/24/19 02/25/19 21:04 05:57 POC Glucometer 248 126 Urine Color Urine Appearance Urine pH Ur Specific [place] Urine Protein Urine Glucose (UA) Urine Ketones Urine Blood Urine Nitrite Urine Bilirubin Urine Urobilinogen Ur Leukocyte Esterase Urine WBC (Auto) Urine RBC (Auto) Urine Casts (Auto) U Epithel Cells (Auto) Urine Bacteria (Auto) Physical Exam S1 S2 RRR Lungs decreased At bases Abd- soft, NT +1 edema-- Edema awake/ comfortable a/p CHF exacerbation IDDM Coronary artery disease Anemia Hypertension-- uncontrolled dementia Monitor on telemetry Echocardiogram-- normal EF , has diastolic dysfunction IV Lasix Monitor lytes BP better add basal insulin cardiology-- spoke with DR Sheikh TERAN Problem List - Problems (1) CHF exacerbation Code(s): I50.9 - HEART FAILURE, UNSPECIFIED Qualifiers: Heart failure type: unspecified Qualified Code(s): I50.9 - Heart failure, unspecified (2) ANGEL (acute kidney injury) Code(s): N17.9 - ACUTE KIDNEY FAILURE, UNSPECIFIED (3) Anemia Code(s): D64.9 - ANEMIA, UNSPECIFIED (4) Coronary artery disease Code(s): I25.10 - ATHSCL HEART DISEASE OF [place] CORONARY ARTERY W/O ANG PCTRS Qualifiers: Coronary Disease-Associated Artery/Lesion type: unspecified vessel or lesion type [place] vs. transplanted heart: [place] heart Associated angina: without angina Qualified Code(s): I25.10 - Atherosclerotic heart disease of [place] coronary artery without angina pectoris
[2019-02-25] MEDS: FUROSEMIDE 40 MG/4 ML INJECTABLE VIAL IVPUSH SCH (11:41)
[2019-02-25] MEDS: FOLIC ACID 1 MG TABLET (FP) PO SCH (11:41)
[2019-02-25] MEDS: RAMIPRIL 5 MG CAPSULE (FP) PO SCH (11:41)
[2019-02-25] MEDS: SPIRONOLACTONE 25 MG TABLET (FP) PO SCH (11:43)
[2019-02-25] MEDS: ASPIRIN COATED 81 MG TABLET.EC PO SCH (11:43)
[2019-02-25] MEDS: ASCORBIC ACID 500 MG TABLET (FP) PO SCH (11:44)
[2019-02-25] MEDS: ENOXAPARIN NA (PORCINE) 40 MG/0.4 ML DISP.SYRIN SQ SCH (11:44)
[2019-02-25] MEDS: METOPROLOL TARTRATE 25 MG TABLET (FP) PO SCH ×2 (13:00→21:40)
--- NOTE | 2019-02-25 17:32 | PN ---
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 Admitted with progressive pedal edema and acute left ventricular failure related to poor dietary compliance. No history of chest pain or discomfort,no history of paroxysmal nocturnal dyspnea or orthopnea. Patient denies having palpitations, lightheadedness, dizziness presyncope or syncope. Medications: 1. Ramipril 10 mg by mouth daily. 2. Lopressor 50 mg by mouth twice a day. 3. Lovenox 40 mg subcutaneous daily. 4. Lipitor 40 mg by mouth daily. 5. NovoLog insulin via sliding scale. 6. Levemir insulin 10 units subcu at bedtime. 7. Lasix 40 mg IV daily. 8. Aldactone 25 mg by mouth daily. 9. Aspirin 81 mg by mouth daily. 10. Aricept 5 mg by mouth daily. 11. Vitamin C 500 mg by mouth daily. 12. Folic acid 1 mg by mouth daily. O:73-year-old female was in no acute distress, no pallor, cyanosis, clubbing or jaundice. Vital signs: Blood pressure 183/61 mmHg. Pulse 53 bpm and regular. Temperature 98.4F. Respirations 16/min. Weight 69.037 kg. Oxygen saturation 98% on room air. Neck: Supple, no jugular venous distention, hepatojugular reflux was negative, carotids were 2+, upstrokes were normal, no bruits were heard, no thyromegaly. Heart: No heaves or thrills, S1 and S2 were normal, no murmur or gallops were heard. Lungs: Clear on auscultation. Abdomen: Soft, protuberant, nontender. No hepatosplenomegaly or palpable masses were felt. Extremities: No calf tenderness, trace to 1+ pretibial edema. Lab data: Latest lab data is not available. Impression: 1. Congestive heart failure, resolving, etiology: A). Secondary to poor dietary compliance. B). Left ventricular diastolic dysfunction. C). Recurrence of myocardialischemia needs to be excluded. 2. Coronary artery disease, status post CABG. 3. Insulin-dependent diabetes mellitus, poorly controlled. 4. Diabetic neuropathy. 5. Diabetic retinopathy. 6. Status post ruptured cerebral aneurysm with residual sequelae. 7. Poor compliance. Recommendations: 1. Dietary restrictions were discussed. 2. Daily weights. 3. Consider Lexiscan myocardial perfusion study. 4. Continue current medications. 5. Patient may require further adjustment of antihypertensive therapy. Prognosis: Guarded.
[2019-02-25] MEDS ORDERED: PT OWN MED DRAWER 7, Y5N ONE (21:39)
[2019-02-25] MEDS: ATORVASTATIN CA 40 MG TABLET (FP) PO SCH (21:40)
[2019-02-25] MEDS: DONEPEZIL HCL 5 MG TABLET (FP) PO SCH (21:40)
[2019-02-25] MEDS: INSULIN (LEVEMIR) 100 UNITS/ML UNITS SQ SCH (21:43)
[2019-02-25] MEDS ORDERED: INSULIN (LEVEMIR) 100 UNITS/ML UNITS SQ ONE (21:43)
[2019-02-25] MEDS ORDERED: amLODIPine BESYLATE 5 MG TABLET (FP) PO ONE (23:59)
[2019-02-25] MEDS ORDERED: MELATONIN 5 MG TABLETS PO PRN (23:59)
[2019-02-26 06:26] LABS: BLOOD UREA NITROGEN 33.7 mg/dL (7-18); CALCIUM 8.1 mg/dL (8.5-10.1); CREATININE 0.8 mg/dL (0.55-1.3); POTASSIUM 4.3 mmol/L (3.5-5.1)
[2019-02-26] MEDS: INSULIN SLIDING SCALE (NOVOLOG) 1 VIAL SQ SCH ×4 (07:12→21:26)
--- NOTE | 2019-02-26 09:48 | PN ---
Progress Note (short form) - Note Progress Note: feeling well would like to go home soon has SOB on ambulation - but better per pt Vital Signs - 24 hr 02/25/19 02/25/19 02/25/19 21:00 22:00 23:00 Temperature 98 F Pulse Rate 64 56 L Respiratory 18 18 Rate Blood Pressure 189/65 H 191/59 H O2 Sat by Pulse 98 Oximetry (%) 02/25/19 02/26/19 02/26/19 23:30 00:00 01:31 Temperature 97.8 F Pulse Rate 65 54 L 56 L Respiratory 18 18 18 Rate Blood Pressure 191/74 H 182/62 H 162/59 L O2 Sat by Pulse Oximetry (%) 02/26/19 02/26/19 02/26/19 06:00 07:51 09:00 Temperature 98.1 F Pulse Rate 57 L 56 L Respiratory 18 16 Rate Blood Pressure 172/59 H 159/52 L O2 Sat by Pulse 98 Oximetry (%) 02/26/19 02/26/19 02/26/19 11:00 13:42 14:00 Temperature 97.8 F Pulse Rate 52 L 58 L 60 Respiratory 16 18 21 H Rate Blood Pressure 171/66 H 138/94 167/54 L O2 Sat by Pulse Oximetry (%) 02/26/19 02/26/19 16:03 17:25 Temperature Pulse Rate 62 60 Respiratory 18 18 Rate Blood Pressure 113/92 171/57 H O2 Sat by Pulse Oximetry (%) Current Medications Generic Name Dose Route Start Last Admin Trade Name Freq PRN Reason Stop Dose Admin Ascorbic Acid 500 mg 02/23/19 10:00 02/26/19 10:24 Vitamin C - PO 500 mg DAILY BO Administration Aspirin 81 mg 02/23/19 10:00 02/26/19 10:23 Ecotrin - PO 81 mg DAILY BO Administration Atorvastatin Calcium 40 mg 02/23/19 22:00 02/25/19 21:40 Lipitor - PO 40 mg HS BO Administration Donepezil HCl 5 mg 02/23/19 22:00 02/25/19 21:40 Aricept - PO 5 mg HS BO Administration Enoxaparin Sodium 40 mg 02/23/19 20:00 02/26/19 10:24 Lovenox - SQ 40 mg DAILY BO Administration Folic Acid 1 mg 02/23/19 10:00 02/26/19 10:23 Folic Acid - PO 1 mg DAILY BO Administration Furosemide 40 mg 02/23/19 10:00 02/26/19 10:23 Lasix Injection - IVPUSH 40 mg DAILY BO Administration Hydralazine HCl 25 mg 02/26/19 14:00 02/26/19 13:36 Apresoline - PO 25 mg TID BO Administration Insulin Aspart 1 vial 02/23/19 11:00 02/26/19 16:01 Novolog Vial Sliding Scale - SQ 2 units ACHS BO Administration Protocol Insulin Detemir 10 units 02/24/19 22:00 02/25/19 21:43 Levemir Vial SQ 10 units HS BO Administration Melatonin 5 mg 02/25/19 23:59 02/26/19 00:24 Melatonin PO 5 mg HS PRN Administration INSOMNIA Metoprolol Tartrate 50 mg 02/24/19 10:00 02/26/19 10:23 Lopressor - PO 50 mg BID BO Administration Ramipril 10 mg 02/24/19 10:00 02/26/19 10:23 Altace - PO 10 mg DAILY BO Administration Spironolactone 25 mg 02/23/19 10:00 02/26/19 10:23 Aldactone - PO 25 mg DAILY BO Administration Laboratory Results - last 24 hr 02/25/19 02/26/19 02/26/19 21:31 05:39 05:40 Sodium 143 Potassium 4.3 Chloride 110 H Carbon Dioxide 27 Anion Gap 6 L BUN 33.7 H Creatinine 0.8 Est GFR (CKD-EPI)AfAm 84.77 Est GFR (CKD-EPI)NonAf 73.14 POC Glucometer 231 148 Random Glucose 156 H Calcium 8.1 L 02/26/19 02/26/19 11:29 15:59 Sodium Potassium Chloride Carbon Dioxide Anion Gap BUN Creatinine Est GFR (CKD-EPI)AfAm Est GFR (CKD-EPI)NonAf POC Glucometer 223 169 Random Glucose Calcium Physical Exam S1 S2 RRR Lungs decreased At bases Abd- soft, NT +1 edema-- Edema awake/ comfortable a/p CHF exacerbation IDDM Coronary artery disease Anemia Hypertension-- uncontrolled dementia Monitor on telemetry Echocardiogram-- normal EF , has diastolic dysfunction IV Lasix Monitor lytes BP uncontrolled-- add Hydralazine add basal insulin cardiology-- spoke with DR Sheikh TERAN Problem List - Problems (1) CHF exacerbation Code(s): I50.9 - HEART FAILURE, UNSPECIFIED Qualifiers: Heart failure type: unspecified Qualified Code(s): I50.9 - Heart failure, unspecified (2) ANGEL (acute kidney injury) Code(s): N17.9 - ACUTE KIDNEY FAILURE, UNSPECIFIED (3) Anemia Code(s): D64.9 - ANEMIA, UNSPECIFIED (4) Coronary artery disease Code(s): I25.10 - ATHSCL HEART DISEASE OF [place] CORONARY ARTERY W/O ANG PCTRS Qualifiers: Coronary Disease-Associated Artery/Lesion type: unspecified vessel or lesion type [place] vs. transplanted heart: [place] heart Associated angina: without angina Qualified Code(s): I25.10 - Atherosclerotic heart disease of [place] coronary artery without angina pectoris
[2019-02-26] MEDS: FUROSEMIDE 40 MG/4 ML INJECTABLE VIAL IVPUSH SCH (10:23)
[2019-02-26] MEDS: ASPIRIN COATED 81 MG TABLET.EC PO SCH (10:23)
[2019-02-26] MEDS: METOPROLOL TARTRATE 25 MG TABLET (FP) PO SCH ×2 (10:23→21:19)
[2019-02-26] MEDS: FOLIC ACID 1 MG TABLET (FP) PO SCH (10:23)
[2019-02-26] MEDS: SPIRONOLACTONE 25 MG TABLET (FP) PO SCH (10:23)
[2019-02-26] MEDS: RAMIPRIL 5 MG CAPSULE (FP) PO SCH (10:23)
[2019-02-26] MEDS: ENOXAPARIN NA (PORCINE) 40 MG/0.4 ML DISP.SYRIN SQ SCH (10:24)
[2019-02-26] MEDS: ASCORBIC ACID 500 MG TABLET (FP) PO SCH (10:24)
--- NOTE | 2019-02-26 12:57 | EKG ---
Test Reason : Blood Pressure : / mmHG Vent. 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
[2019-02-26] MEDS: hydrALAZINE HCL 25 MG TABLET (FP) PO SCH ×2 (13:36→21:18)
[2019-02-26] MEDS ORDERED: PT OWN MED DRAWER 7, Y5N ONE ×2 (21:10→22:03)
[2019-02-26] MEDS: ATORVASTATIN CA 40 MG TABLET (FP) PO SCH (21:19)
[2019-02-26] MEDS: DONEPEZIL HCL 5 MG TABLET (FP) PO SCH (21:19)
[2019-02-26] MEDS: INSULIN (LEVEMIR) 100 UNITS/ML UNITS SQ SCH (21:27)
[2019-02-27] MEDS: hydrALAZINE HCL 25 MG TABLET (FP) PO SCH ×3 (06:09→21:30)
[2019-02-27] MEDS: INSULIN SLIDING SCALE (NOVOLOG) 1 VIAL SQ SCH ×4 (06:14→21:31)
[2019-02-27] MEDS ORDERED: clonazePAM 0.5 MG TABLET PO PRN (08:25)
--- NOTE | 2019-02-27 08:25 | PN ---
Progress Note (short form) - Note Progress Note: feeling well would like to go home soon as per RN, was very tearful yesterday-- wanting to go home Vital Signs - 24 hr 02/26/19 02/26/19 02/26/19 09:00 11:00 13:42 Temperature Pulse Rate 52 L 58 L Respiratory 16 18 Rate Blood Pressure 171/66 H 138/94 O2 Sat by Pulse 98 Oximetry (%) 02/26/19 02/26/19 02/26/19 14:00 16:03 17:25 Temperature 97.8 F Pulse Rate 60 62 60 Respiratory 21 H 18 18 Rate Blood Pressure 167/54 L 113/92 171/57 H O2 Sat by Pulse Oximetry (%) 02/26/19 02/27/19 02/27/19 21:00 01:00 05:00 Temperature 97.9 F 98 F 98.2 F Pulse Rate 53 L 53 L 63 Respiratory 18 18 16 Rate Blood Pressure 161/113 H 179/62 H 187/55 H O2 Sat by Pulse 98 Oximetry (%) Current Medications Generic Name Dose Route Start Last Admin Trade Name Freq PRN Reason Stop Dose Admin Ascorbic Acid 500 mg 02/23/19 10:00 02/26/19 10:24 Vitamin C - PO 500 mg DAILY BO Administration Aspirin 81 mg 02/23/19 10:00 02/26/19 10:23 Ecotrin - PO 81 mg DAILY BO Administration Atorvastatin Calcium 40 mg 02/23/19 22:00 02/26/19 21:19 Lipitor - PO 40 mg HS BO Administration Donepezil HCl 5 mg 02/23/19 22:00 02/26/19 21:19 Aricept - PO 5 mg HS BO Administration Enoxaparin Sodium 40 mg 02/23/19 20:00 02/26/19 10:24 Lovenox - SQ 40 mg DAILY BO Administration Folic Acid 1 mg 02/23/19 10:00 02/26/19 10:23 Folic Acid - PO 1 mg DAILY BO Administration Furosemide 40 mg 02/23/19 10:00 02/26/19 10:23 Lasix Injection - IVPUSH 40 mg DAILY BO Administration Hydralazine HCl 50 mg 02/27/19 14:00 Apresoline - PO TID BO Insulin Aspart 1 vial 02/23/19 11:00 02/27/19 06:14 Novolog Vial Sliding Scale - SQ Not Given ACHS [facility] Protocol Insulin Detemir 12 units 02/27/19 08:23 Levemir Vial SQ HS BO Melatonin 5 mg 02/25/19 23:59 02/26/19 00:24 Melatonin PO 5 mg HS PRN Administration INSOMNIA Metoprolol Tartrate 50 mg 02/24/19 10:00 02/26/19 21:19 Lopressor - PO 50 mg BID BO Administration Ramipril 10 mg 02/24/19 10:00 02/26/19 10:23 Altace - PO 10 mg DAILY BO Administration Spironolactone 25 mg 02/23/19 10:00 02/26/19 10:23 Aldactone - PO 25 mg DAILY BO Administration Laboratory Results - last 24 hr 02/26/19 02/26/19 02/26/19 11:29 15:59 21:24 POC Glucometer 223 169 199 02/27/19 06:13 POC Glucometer 147 Physical Exam S1 S2 RRR Lungs decreased At bases Abd- soft, NT +1 edema-- Edema awake/ comfortable a/p CHF exacerbation IDDM Coronary artery disease Anemia Hypertension-- uncontrolled dementia Monitor on telemetry Echocardiogram-- normal EF , has diastolic dysfunction IV Lasix Monitor lytes BP uncontrolled-- increase Hydralazine increase basal insulin stress test tomorrow- per cardiology add Klonopin for anxiety OOB Problem List - Problems (1) CHF exacerbation Code(s): I50.9 - HEART FAILURE, UNSPECIFIED Qualifiers: Heart failure type: unspecified Qualified Code(s): I50.9 - Heart failure, unspecified (2) ANGEL (acute kidney injury) Code(s): N17.9 - ACUTE KIDNEY FAILURE, UNSPECIFIED (3) Anemia Code(s): D64.9 - ANEMIA, UNSPECIFIED (4) Coronary artery disease Code(s): I25.10 - ATHSCL HEART DISEASE OF [place] CORONARY ARTERY W/O ANG PCTRS Qualifiers: Coronary Disease-Associated Artery/Lesion type: unspecified vessel or lesion type [place] vs. transplanted heart: [place] heart Associated angina: without angina Qualified Code(s): I25.10 - Atherosclerotic heart disease of [place] coronary artery without angina pectoris
[2019-02-27] MEDS ORDERED: PT OWN MED DRAWER 7, Y5N ONE ×2 (09:12→21:26)
[2019-02-27] MEDS: ASCORBIC ACID 500 MG TABLET (FP) PO SCH (09:27)
[2019-02-27] MEDS: METOPROLOL TARTRATE 25 MG TABLET (FP) PO SCH ×2 (09:27→21:29)
[2019-02-27] MEDS: ASPIRIN COATED 81 MG TABLET.EC PO SCH (09:27)
[2019-02-27] MEDS: SPIRONOLACTONE 25 MG TABLET (FP) PO SCH (09:27)
[2019-02-27] MEDS: RAMIPRIL 5 MG CAPSULE (FP) PO SCH (09:28)
[2019-02-27] MEDS: FUROSEMIDE 40 MG/4 ML INJECTABLE VIAL IVPUSH SCH (09:29)
[2019-02-27] MEDS: ENOXAPARIN NA (PORCINE) 40 MG/0.4 ML DISP.SYRIN SQ SCH (09:29)
[2019-02-27] MEDS: FOLIC ACID 1 MG TABLET (FP) PO SCH (09:57)
--- NOTE | 2019-02-27 13:46 | PN ---
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 Admitted with progressive pedal edema and acute left ventricular failure related to poor dietary compliance. OOB, no SOB, chest pain or discomfort, tolerating her therapy. Active Medications Ascorbic Acid (Vitamin C -) 500 mg PO DAILY [facility] Last Admin: 02/27/19 09:27 Dose: 500 mg Aspirin (Ecotrin -) 81 mg PO DAILY [facility] Last Admin: 02/27/19 09:27 Dose: 81 mg Atorvastatin Calcium (Lipitor -) 40 mg PO HS [facility] Last Admin: 02/26/19 21:19 Dose: 40 mg Clonazepam (Klonopin -) 0.25 mg PO Q12H PRN PRN Reason: ANXIETY Donepezil HCl (Aricept -) 5 mg PO HS [facility] Last Admin: 02/26/19 21:19 Dose: 5 mg Enoxaparin Sodium (Lovenox -) 40 mg SQ DAILY [facility] Last Admin: 02/27/19 09:29 Dose: 40 mg Folic Acid (Folic Acid -) 1 mg PO DAILY [facility] Last Admin: 02/27/19 09:57 Dose: 1 mg Furosemide (Lasix Injection -) 40 mg IVPUSH DAILY [facility] Last Admin: 02/27/19 09:29 Dose: 40 mg Hydralazine HCl (Apresoline -) 50 mg PO TID [facility] Insulin Aspart (Novolog Vial Sliding Scale -) 1 vial SQ [facility]; Protocol Last Admin: 02/27/19 11:55 Dose: 2 units Insulin Detemir (Levemir Vial) 12 units SQ HS [facility] Melatonin (Melatonin) 5 mg PO HS PRN PRN Reason: INSOMNIA Last Admin: 02/26/19 00:24 Dose: 5 mg Metoprolol Tartrate (Lopressor -) 50 mg PO BID [facility] Last Admin: 02/27/19 09:27 Dose: 50 mg Ramipril (Altace -) 10 mg PO DAILY [facility] Last Admin: 02/27/19 09:28 Dose: 10 mg Spironolactone (Aldactone -) 25 mg PO DAILY [facility] Last Admin: 02/27/19 09:27 Dose: 25 mg O:73-year-old female was in no acute distress, no pallor, cyanosis, clubbing or jaundice. Last Vital Signs Temp Pulse Resp BP Pulse Ox 98.3 F 57 L 17 164/49 L 96 02/27/19 09:00 02/27/19 12:00 02/27/19 12:00 02/27/19 12:00 02/27/19 09:00 Neck: Supple, no jugular venous distention, hepatojugular reflux was negative, carotids were 2+, upstrokes were normal, no bruits were heard, no thyromegal Heart: No heaves or thrills, S1 and S2 were normal, no murmur or gallops were heard. Lungs: Clear on auscultation. Abdomen: Soft, protuberant, nontender. No hepatosplenomegaly or palpable masses were felt. Extremities: No calf tenderness, trace to 1+ pretibial edema. Lab data: CBC, BMP 02/24/19 05:15 02/26/19 05:40 Impression: 1. Congestive heart failure, resolving, etiology: A). Secondary to poor dietary compliance. B). Left ventricular diastolic dysfunction. C). Recurrence of myocardial ischemia needs to be excluded. 2. Coronary artery disease, status post CABG. 3. Insulin-dependent diabetes mellitus, poorly controlled. 4. Diabetic neuropathy. 5. Diabetic retinopathy. 6. Status post ruptured cerebral aneurysm with residual sequelae. 7. Poor compliance. 8. Anemia, etiology, to be determined. Recommendations: 1. Increase ambulation. 2. Daily weights. 3. Consider Lexiscan myocardial perfusion study. 4. Continue current medications. 5. If BP remains elevated, further adjustment of antihypertensive therapy. Prognosis: Guarded.
[2019-02-27] MEDS: ATORVASTATIN CA 40 MG TABLET (FP) PO SCH (21:29)
[2019-02-27] MEDS: DONEPEZIL HCL 5 MG TABLET (FP) PO SCH (21:30)
[2019-02-27] MEDS: INSULIN (LEVEMIR) 100 UNITS/ML UNITS SQ SCH (21:30)
[2019-02-28] MEDS: INSULIN SLIDING SCALE (NOVOLOG) 1 VIAL SQ SCH ×4 (06:27→22:01)
[2019-02-28 06:29] LABS: BLOOD UREA NITROGEN 33.1 mg/dL (7-18); CREATININE 0.8 mg/dL (0.55-1.3)
[2019-02-28] MEDS: hydrALAZINE HCL 25 MG TABLET (FP) PO SCH ×3 (06:29→21:41)
[2019-02-28] MEDS ORDERED: CALCIUM GLUCONATE 10% - 1,000 MG/10 ML VIAL IVPB ONE (08:00)
[2019-02-28] MEDS ORDERED: REGADENOSON 0.4 MG/5 ML PRE-FILLED SYRINGE IVPUSH ONE ×2 (10:12→10:30)
--- NOTE | 2019-02-28 12:34 | PN ---
Progress Note (short form) - Note Progress Note: feeling well for stress test Vital Signs - 24 hr 02/27/19 02/27/19 02/27/19 16:00 18:00 20:03 Temperature 98 F Pulse Rate 65 58 L Respiratory 18 18 18 Rate Blood Pressure 181/59 H 167/55 L O2 Sat by Pulse 96 Oximetry (%) 02/27/19 02/28/19 02/28/19 23:00 02:44 06:13 Temperature 98.2 F 98.2 F 97.8 F Pulse Rate 50 L 54 L 57 L Respiratory 15 14 16 Rate Blood Pressure 155/85 162/44 L 149/38 L O2 Sat by Pulse Oximetry (%) 02/28/19 08:25 Temperature Pulse Rate 56 L Respiratory 16 Rate Blood Pressure 171/60 H O2 Sat by Pulse Oximetry (%) Current Medications Generic Name Dose Route Start Last Admin Trade Name Freq PRN Reason Stop Dose Admin Ascorbic Acid 500 mg 02/23/19 10:00 02/27/19 09:27 Vitamin C - PO 500 mg DAILY BO Administration Aspirin 81 mg 02/23/19 10:00 02/27/19 09:27 Ecotrin - PO 81 mg DAILY BO Administration Atorvastatin Calcium 40 mg 02/23/19 22:00 02/27/19 21:29 Lipitor - PO 40 mg HS BO Administration Clonazepam 0.25 mg 02/27/19 08:25 Klonopin - PO Q12H PRN ANXIETY Donepezil HCl 5 mg 02/23/19 22:00 02/27/19 21:30 Aricept - PO 5 mg HS BO Administration Enoxaparin Sodium 40 mg 02/23/19 20:00 02/27/19 09:29 Lovenox - SQ 40 mg DAILY BO Administration Folic Acid 1 mg 02/23/19 10:00 02/27/19 09:57 Folic Acid - PO 1 mg DAILY BO Administration Furosemide 40 mg 02/23/19 10:00 02/27/19 09:29 Lasix Injection - IVPUSH 40 mg DAILY BO Administration Hydralazine HCl 50 mg 02/27/19 14:00 02/28/19 06:29 Apresoline - PO 50 mg TID BO Administration Insulin Aspart 1 vial 02/23/19 11:00 02/28/19 06:27 Novolog Vial Sliding Scale - SQ Not Given ACHS [facility] Protocol Insulin Detemir 12 units 07/04/19 22:00 02/27/19 21:30 Levemir Vial SQ 12 units HS BO Administration Melatonin 5 mg 02/25/19 23:59 02/26/19 00:24 Melatonin PO 5 mg HS PRN Administration INSOMNIA Metoprolol Tartrate 50 mg 02/24/19 10:00 02/27/19 21:29 Lopressor - PO 50 mg BID BO Administration Ramipril 10 mg 02/24/19 10:00 02/27/19 09:28 Altace - PO 10 mg DAILY BO Administration Spironolactone 25 mg 02/23/19 10:00 02/27/19 09:27 Aldactone - PO 25 mg DAILY BO Administration Laboratory Results - last 24 hr 02/27/19 02/27/19 02/28/19 17:32 21:17 05:17 Sodium 143 Potassium 4.0 Chloride 109 H Carbon Dioxide 27 Anion Gap 6 L BUN 33.1 H Creatinine 0.8 Est GFR (CKD-EPI)AfAm 84.77 Est GFR (CKD-EPI)NonAf 73.14 POC Glucometer 153 166 Random Glucose 139 H Calcium 5.4 L* 02/28/19 05:19 Sodium Potassium Chloride Carbon Dioxide Anion Gap BUN Creatinine Est GFR (CKD-EPI)AfAm Est GFR (CKD-EPI)NonAf POC Glucometer 125 Random Glucose Calcium Physical Exam S1 S2 RRR Lungs decreased At bases Abd- soft, NT +1 edema-- Edema awake/ comfortable a/p CHF exacerbation IDDM Coronary artery disease Anemia Hypertension-- uncontrolled dementia Monitor on telemetry Echocardiogram-- normal EF , has diastolic dysfunction IV Lasix Monitor lytes BP uncontrolled-- increase Hydralazine increase basal insulin stress test today per cardiology add Klonopin for anxiety OOB Problem List - Problems (1) CHF exacerbation Code(s): I50.9 - HEART FAILURE, UNSPECIFIED Qualifiers: Heart failure type: unspecified Qualified Code(s): I50.9 - Heart failure, unspecified (2) ANGEL (acute kidney injury) Code(s): N17.9 - ACUTE KIDNEY FAILURE, UNSPECIFIED (3) Anemia Code(s): D64.9 - ANEMIA, UNSPECIFIED (4) Coronary artery disease Code(s): I25.10 - ATHSCL HEART DISEASE OF [place] CORONARY ARTERY W/O ANG PCTRS Qualifiers: Coronary Disease-Associated Artery/Lesion type: unspecified vessel or lesion type [place] vs. transplanted heart: [place] heart Associated angina: without angina Qualified Code(s): I25.10 - Atherosclerotic heart disease of [place] coronary artery without angina pectoris
[2019-02-28] MEDS: SPIRONOLACTONE 25 MG TABLET (FP) PO SCH (13:00)
[2019-02-28] MEDS ORDERED: PT OWN MED DRAWER 7, Y5N ONE ×2 (13:07→21:10)
[2019-02-28] MEDS: RAMIPRIL 5 MG CAPSULE (FP) PO SCH (13:11)
[2019-02-28] MEDS: ASPIRIN COATED 81 MG TABLET.EC PO SCH (13:11)
[2019-02-28] MEDS: METOPROLOL TARTRATE 25 MG TABLET (FP) PO SCH ×2 (13:11→21:41)
[2019-02-28] MEDS: ENOXAPARIN NA (PORCINE) 40 MG/0.4 ML DISP.SYRIN SQ SCH (13:12)
[2019-02-28] MEDS: FOLIC ACID 1 MG TABLET (FP) PO SCH (13:12)
[2019-02-28] MEDS: FUROSEMIDE 40 MG/4 ML INJECTABLE VIAL IVPUSH SCH (13:12)
[2019-02-28] MEDS: ASCORBIC ACID 500 MG TABLET (FP) PO SCH (13:12)
--- NOTE | 2019-02-28 14:43 | PN ---
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 Admitted with progressive pedal edema and acute left ventricular failure related to poor dietary compliance. OOB, no chest or discomfort, myocardial perfusion scan reveals a reversible apical and inferolateral defecr Active Medications Ascorbic Acid (Vitamin C -) 500 mg PO DAILY [facility] Last Admin: 02/28/19 13:12 Dose: 500 mg Aspirin (Ecotrin -) 81 mg PO DAILY [facility] Last Admin: 02/28/19 13:11 Dose: 81 mg Atorvastatin Calcium (Lipitor -) 40 mg PO HS [facility] Last Admin: 02/27/19 21:29 Dose: 40 mg Clonazepam (Klonopin -) 0.25 mg PO Q12H PRN PRN Reason: ANXIETY Donepezil HCl (Aricept -) 5 mg PO HS [facility] Last Admin: 02/27/19 21:30 Dose: 5 mg Enoxaparin Sodium (Lovenox -) 40 mg SQ DAILY [facility] Last Admin: 02/28/19 13:12 Dose: 40 mg Folic Acid (Folic Acid -) 1 mg PO DAILY [facility] Last Admin: 02/28/19 13:12 Dose: 1 mg Furosemide (Lasix Injection -) 40 mg IVPUSH DAILY [facility] Last Admin: 02/28/19 13:12 Dose: 40 mg Hydralazine HCl (Apresoline -) 50 mg PO TID [facility] Last Admin: 02/28/19 06:29 Dose: 50 mg Insulin Aspart (Novolog Vial Sliding Scale -) 1 vial SQ [facility]; Protocol Last Admin: 02/28/19 13:13 Dose: Not Given Insulin Detemir (Levemir Vial) 12 units SQ HS [facility] Last Admin: 02/27/19 21:30 Dose: 12 units Melatonin (Melatonin) 5 mg PO HS PRN PRN Reason: INSOMNIA Last Admin: 02/26/19 00:24 Dose: 5 mg Metoprolol Tartrate (Lopressor -) 50 mg PO BID [facility] Last Admin: 02/28/19 13:11 Dose: 50 mg Ramipril (Altace -) 10 mg PO DAILY [facility] Last Admin: 02/28/19 13:11 Dose: 10 mg Spironolactone (Aldactone -) 25 mg PO DAILY [facility] Last Admin: 02/28/19 13:00 Dose: 25 mg O:73-year-old female was in no acute distress, no pallor, cyanosis, clubbing or jaundice. Last Vital Signs Temp Pulse Resp BP Pulse Ox 97.8 F 56 L 16 171/60 H 96 02/28/19 06:13 02/28/19 08:25 02/28/19 08:25 02/28/19 08:25 02/27/19 20:03 Neck: Supple, no jugular venous distention, hepatojugular reflux was negative, carotids were 2+, upstrokes were normal, no bruits were heard, no thyromegal Heart: No heaves or thrills, S1 and S2 were normal, no murmur or gallops were heard. Lungs: Clear on auscultation. Abdomen: Soft, protuberant, nontender. No hepatosplenomegaly or palpable masses were felt. Extremities: No calf tenderness, trace to 1+ pretibial edema. CBC, BMP 02/24/19 05:15 Abnormal Lexiscan Myoview perfusion scan, see report Impression: 1. Congestive heart failure, Resolved, etiology: A). Secondary to poor dietary compliance. B). Left ventricular diastolic dysfunction. C). Recurrence of myocardial ischemia. 2. Coronary artery disease, status post CABG. 3. Insulin-dependent diabetes mellitus, poorly controlled. 4. Diabetic neuropathy. 5. Diabetic retinopathy. 6. Status post ruptured cerebral aneurysm with residual sequelae. 7. Poor compliance. 8. Anemia, etiology, to be determined. Recommendations: 1. Add Ranexa 500mg. Q12H. 2. F/u CBC and BMP. 3. Furuher evaluation on OPB. 4. NTG 0.4mg. S/L PRN for chest pain or dysnpea. 5. Strict control of DM. 6. Dietary/ sodium restrictions. Prognosis: Guarded.
[2019-02-28] MEDS ORDERED: NITROGLYCERIN SUBLINGUAL 1/150 0.4 MG TAB SL PRN (14:48)
[2019-02-28 14:58] LABS: BLOOD UREA NITROGEN 27.7 mg/dL (7-18); CALCIUM 8.7 mg/dL (8.5-10.1); CREATININE 0.9 mg/dL (0.55-1.3); POTASSIUM 4.5 mmol/L (3.5-5.1)
[2019-02-28 15:32] LABS: CALCIUM 8.3 mg/dL (8.5-10.1)
[2019-02-28] MEDS: ATORVASTATIN CA 40 MG TABLET (FP) PO SCH (21:40)
[2019-02-28] MEDS: RANOLAZINE E.R. 500 MG TABLET (FP) PO SCH (21:40)
[2019-02-28] MEDS: DONEPEZIL HCL 5 MG TABLET (FP) PO SCH (21:42)
[2019-02-28] MEDS: INSULIN (LEVEMIR) 100 UNITS/ML UNITS SQ SCH (21:46)
[2019-03-01] MEDS: hydrALAZINE HCL 25 MG TABLET (FP) PO SCH (06:21)
[2019-03-01] MEDS: INSULIN SLIDING SCALE (NOVOLOG) 1 VIAL SQ SCH ×2 (06:22→10:23)
[2019-03-01] MEDS ORDERED: hydrALAZINE HCL 50 MG TABLET (FP) PO SCH (09:27)
[2019-03-01] MEDS: ENOXAPARIN NA (PORCINE) 40 MG/0.4 ML DISP.SYRIN SQ SCH (09:28)
[2019-03-01] MEDS: FUROSEMIDE 40 MG/4 ML INJECTABLE VIAL IVPUSH SCH (09:28)
[2019-03-01] MEDS: FOLIC ACID 1 MG TABLET (FP) PO SCH (09:28)
[2019-03-01] MEDS: SPIRONOLACTONE 25 MG TABLET (FP) PO SCH (09:28)
[2019-03-01] MEDS: ASPIRIN COATED 81 MG TABLET.EC PO SCH (09:29)
[2019-03-01] MEDS: ASCORBIC ACID 500 MG TABLET (FP) PO SCH (09:29)
[2019-03-01] MEDS: RAMIPRIL 5 MG CAPSULE (FP) PO SCH (09:29)
[2019-03-01] MEDS: RANOLAZINE E.R. 500 MG TABLET (FP) PO SCH (09:29)
[2019-03-01] MEDS: METOPROLOL TARTRATE 25 MG TABLET (FP) PO SCH (09:29)
--- NOTE | 2019-03-01 11:46 | DS ---
Physical Examination Vital Signs: Vital Signs Temperature 98 F 03/01/19 08:00 Pulse Rate 55 L 03/01/19 08:00 Respiratory Rate 16 03/01/19 08:00 Blood Pressure 175/53 H 03/01/19 08:00 O2 Sat by Pulse Oximetry (%) 96 02/28/19 21:00 Labs: CBC, BMP 02/24/19 05:15 02/28/19 14:08 Discharge Summary Reason For Visit: NYHA CLASS 3 HEART FAILURE W/REDUCED EJECTION Current Active Problems CHF exacerbation (Acute) Condition: Improved - Instructions Disposition: HOME - Home Medications Comprehensive Discharge Medication List: Ambulatory Orders Atorvastatin Ca [Lipitor] 40 mg PO HS 03/17/16 Spironolactone [Aldactone -] 25 mg PO DAILY tablet 04/17/17 Ascorbic Acid [Vitamin C -] 500 mg PO DAILY 02/23/19 Aspirin Coated [Ecotrin -] 81 mg PO DAILY 02/23/19 Calcium Carb, Citrate/Vit D3 [Calcium + D3 ER Tablet] 1 each PO DAILY 02/23/19 Donepezil HCl 5 mg PO DAILY 02/23/19 Folic Acid 0.4 mg PO DAILY 02/23/19 Insulin Lispro [Humalog] 72 unit SQ DAILY 02/23/19 Metoprolol Tartrate [Lopressor -] 25 mg PO BID 02/23/19 Furosemide [Lasix] 40 mg PO DAILY #30 tablet 03/01/19 Ramipril [Altace] 10 mg PO DAILY #30 capsule 03/01/19 Ranolazine [Ranexa -] 500 mg PO BID #60 tab 03/01/19 hydrALAZINE HCL [Apresoline -] 100 mg PO TID #90 tablet 03/01/19
[2019-03-01 13:00] VITALS: BP 131/45; PULSE 63; TEMP 98.2
== END 2019-03-01 13:00 | disposition home health service (06) | DRG 292 ==
LOC: JER 04:47 → JERBED 07:29 → J2W 16:16
PROVIDERS: ADMIT Internal Medicine; ATTEND Internal Medicine
DX: I11.0 Hypertensive heart disease with heart failure (principal); N17.9 Acute kidney failure, unspecified; I50.23 Acute on chronic systolic (congestive) heart failure; I25.10 Atherosclerotic heart disease of native coronary artery without angina pectoris; E11.9 Type 2 diabetes mellitus without complications; Z98.2 Presence of cerebrospinal fluid drainage device; E87.70 Fluid overload, unspecified; E11.319 Type 2 diabetes mellitus with unspecified diabetic retinopathy without macular edema; I42.0 Dilated cardiomyopathy; Z95.1 Presence of aortocoronary bypass graft
CPT/HCPCS: 36415; 71045-TC-FY; 78452-TC; 80048; 80053; 80061; 81003; 82550; 82553; 82962; 83036; 83721; 83735; 83880; 84443; 84484; 85025; 85610; 93005; 93010; 93017; 93306-TC; 93970-TC; 97116-GP; 97161-GP; 99284-25; A9502; J2785